=== PATIENT | male | born 1945 | race Caucasian/White ===

== ENCOUNTER 2016-05-11 18:25 | Emergency (ER) | payer OTHER ==
[~2016-05-11] VITALS: Ht 175.3 cm; Wt 82.6 kg
[~2016-05-11 18:25] MED LIST: GABA300C19 PO; LATA0.009 OPB; PRLSR20 PO
[2016-05-11 18:30] VITALS: Ht 175.3 cm; Wt 82.6 kg
[2016-05-11] MEDS ORDERED: ALUMINUM/MAGNESIUM SUSP 30 ML UDC PO STA (18:52)
[2016-05-11] MEDS ORDERED: LIDOCAINE HCL 2% VISC SOLN 20 ML UDC PO STA (18:52)
[2016-05-11 19:10] VITALS: O2SAT 95
[2016-05-11] MEDS ORDERED: AMLO-110 PO (19:14)
[2016-05-11 19:22] LABS: BASO % 0.5 %; BASO ABS # 0.03 K/uL (0-0.2); COMPLETE YES; EOS % 2.5 %; HEMATOCRIT 41.9 % (42-52); IG% 0.2 %; LYMPH ABS # 2.04 K/uL (1.2-3.4); MEAN CORPUSCULAR HEMOGLOBIN 31.9 pg (25-34); MEAN CORPUSCULAR HGB CONC 36.3 g/dl (32-36); MEAN PLATELET VOLUME 9.4 fL (7.4-10.4); MONO % 10.9 %; NEUT % 48.9 %; PLATELET COUNT 229 K/uL (130-400); RED BLOOD COUNT 4.76 M/uL (4.7-6.1); WHITE BLOOD COUNT 5.51 K/uL (4.8-10.8)
[2016-05-11 19:39] LABS: INR 1.1 (0.9-1.1); PROTHROMBIN TIME (PATIENT) 11.4 SECONDS (9.0-12.0)
[2016-05-11 20:01] LABS: ALKALINE PHOSPHATASE 82 U/L (45-117); ALT/SGPT 36 U/L (12-78); AST/SGOT 23 U/L (15-37); BLOOD UREA NITROGEN 15 mg/dl (7-18); BUN/CREATININE RATIO 18.3 (10-20); CALCIUM 8.9 mg/dl (8.5-10.1); CARBON DIOXIDE 22 mmol/L (21-32); CHLORIDE 104 mmol/L (98-107); CKMB/CK RATIO 0.6 (0-3.0); CREATININE 0.82 mg/dl (0.60-1.40); GLUCOSE 130 mg/dl (70-99); SODIUM 139 mmol/L (136-145)
--- NOTE | 2016-05-11 20:15 | DIAGNOSTIC IMAGING REPORT ---
CHEST ONE VIEW PORTABLE HISTORY: Tachycardia. Evaluate Fever/Sepsis COMPARISON: Chest 12/25/2013. FINDINGS: Extensive bilateral calcified pleural plaques are again noted. No pleural effusions. No pneumothorax. The heart is normal in size. No evidence for pulmonary edema. No new focal lung consolidations to suggest pneumonia. IMPRESSION: No significant change compared to the prior study. No acute process. Calcified bilateral pleural plaques are again noted. Electronically signed by: Bryce Gutiérrez M.D. 05/11/2016 8:14 PM Dictated Date/Time: 05/11/2016 8:12 PM
--- NOTE | 2016-05-11 20:42 | EMERGENCY ROOM VISIT NOTE ---
History Report prepared by Charo: Candelario Pro Under the Supervision of: Dr. Alexsander Mart D.O. First contact with patient: 18:42 Chief Complaint: CHEST PAIN Stated Complaint: CHEST PAIN, RACING HEART Nursing Triage Summary: PT C/O SUBSTERNAL CP AND "FEELS LIKE MY HEART IS RACING" STARTING 45 MINUTES AGO. HX ANGINA. PT TOOK 1 NITRO WITH "SOME" RELIEF. History of Present Illness The patient is a 70 year old male who presents to the Emergency Room with complaints of intermittent chest pain beginning about 1 hour ago. He notes the pain felt like a rapid heartbeat, and he took a nitro which helped. He then went downstairs and sat down when his symptoms began again. He notes he had pizza and beer for dinner, which he has not had in over 2 years, and his symptoms began about 30 minutes afterwards. The patient reports never having a heart attack before, but has angina and notes this pain feels like angina. He adds he has a hiatal hernia. The patient reports having multiple cardiac catheterizations, the last of which was in January of 2016 and showed 40% blockage. He adds that he has also had stress tests in the past. He notes his pain is not worsening with exertion, but he can normally feel discomfort upon exertion. The patient admits to having a fatty liver, and thus being on a diet regiment, which does not include pizza. Source of History: patient Onset: about 1 hour ago Position: chest Quality: other (chest pain; feels like rapid heartbeat) Timing: intermittent Modifying Factors (Relieving): other (nitro) Review of Systems See HPI for pertinent positives & negatives. A total of 10 systems reviewed and were otherwise negative. Past Medical & Surgical Medical Problems: (1) Coronary Atherosclerosis Of [place] Coronary Vessel (2) Diverticulosis Colon (W/O Ment Of Hemorrhage) (3) Esophageal Reflux (4) Hyperlipidemia Nec/Nos (5) Hypertension Nos (6) Palpitations Surgical Problems: (1) H/O cardiac catheterization Family History FH: heart disease Social History Smoking Status: Former Smoker Alcohol Use: occasionally Marital Status: Housing Status: lives with family Occupation Status: retired Current/Historical Medications Scheduled Amlodipine (Norvasc), 5 MG PO QAM Aspirin (Aspirin Ec), 81 MG PO QAM Latanoprost (Xalatan 0.005% Oph Griselda), 1 DROP OPB HS Meloxicam (Mobic), 15 MG PO QAM Metoprolol Tartrate (Lopressor) (Lopressor), 12.5 MG PO BID Multiple Vitamins W/ Minerals (Ocuvite), 1 TAB PO QAM Omeprazole (Prilosec), 20 MG PO AMPM Scheduled PRN Nitroglycerin (Nitrostat), 0.4 MG UT UD PRN for Chest Pain Allergies Coded Allergies: Codeine (Verified Allergy, Mild, NAUSEA, 12/25/13) Physical Exam Vital Signs Date Time Temp Pulse Resp B/P Pulse Ox O2 Delivery O2 Flow Rate FiO2 05/11/16 19:40 94 18 130/82 97 Room Air 05/11/16 19:10 95 Room Air 05/11/16 19:10 95 Room Air 05/11/16 19:09 92 Physical Exam CONSTITUTIONAL/VITAL SIGNS: Reviewed / noted above. GENERAL: Non-toxic in appearance. INTEGUMENTARY: Warm, dry, and [place]. HEAD: Normocephalic. EYES: without scleral icterus or trauma. ENT/OROPHARYNX: clear and moist. LYMPHADENOPATHY/NECK: Is supple without lymphadenopathy or meningismus. RESPIRATORY: Lungs clear and equal. CARDIOVASCULAR: Regular rate and rhythm. GI/ABDOMEN: Soft and nontender. No organomegaly or pulsatile mass. No rebound or guarding. Normal bowel sounds. EXTREMITIES: Warm and well perfused. BACK: No CVA tenderness. NEUROLOGICAL: Intact without focal deficits. PSYCHIATRIC: normal affect. MUSCULOSKELETAL: Normally developed with good muscle tone. Medical Decision & Procedures ER Provider Diagnostic Interpretation: X ray results and stated below per my interpretation and radiology interpretation. CHEST ONE VIEW PORTABLE FINDINGS: Extensive bilateral calcified pleural plaques are again noted. No pleural effusions. No pneumothorax. The heart is normal in size. No evidence for pulmonary edema. No new focal lung consolidations to suggest pneumonia. IMPRESSION: No significant change compared to the prior study. No acute process. Calcified bilateral pleural plaques are again noted. Electronically signed by: Bryce Gutiérrez M.D. 05/11/2016 8:14 PM Dictated Date/Time: 05/11/2016 8:12 PM Laboratory Results 05/11/16 19:05 Red Blood Count 4.76, Mean Corpuscular Volume 88.0, Mean Corpuscular Hemoglobin 31.9, Mean Corpuscular Hemoglobin Concent 36.3, Mean Platelet Volume 9.4, Neutrophils (%) (Auto) 48.9, Lymphocytes (%) (Auto) 37.0, Monocytes (%) (Auto) 10.9, Eosinophils (%) (Auto) 2.5, Basophils (%) (Auto) 0.5, Neutrophils # (Auto ) 2.69, Lymphocytes # (Auto) 2.04, Monocytes # (Auto) 0.60, Eosinophils # (Auto ) 0.14, Basophils # (Auto) 0.03 05/11/16 19:05 Test 05/11/16 19:05 White Blood Count 5.51 K/uL (4.8-10.8) Red Blood Count 4.76 M/uL (4.7-6.1) Hemoglobin 15.2 g/dL (14.0-18.0) Hematocrit 41.9 % (42-52) Mean Corpuscular Volume 88.0 fL (80-100) Mean Corpuscular Hemoglobin 31.9 pg (25-34) Mean Corpuscular Hemoglobin Concent 36.3 g/dl (32-36) Platelet Count 229 K/uL (130-400) Mean Platelet Volume 9.4 fL (7.4-10.4) Neutrophils (%) (Auto) 48.9 % Lymphocytes (%) (Auto) 37.0 % Monocytes (%) (Auto) 10.9 % Eosinophils (%) (Auto) 2.5 % Basophils (%) (Auto) 0.5 % Neutrophils # (Auto) 2.69 K/uL (1.4-6.5) Lymphocytes # (Auto) 2.04 K/uL (1.2-3.4) Monocytes # (Auto) 0.60 K/uL (0.11-0.59) Eosinophils # (Auto) 0.14 K/uL (0-0.5) Basophils # (Auto) 0.03 K/uL (0-0.2) RDW Standard Deviation 40.3 fL (36.4-46.3) RDW Coefficient of Variation 12.5 % (11.5-14.5) Immature Granulocyte % (Auto) 0.2 % Immature Granulocyte # (Auto) 0.01 K/uL (0.00-0.02) Prothrombin Time 11.4 SECONDS (9.0-12.0) Prothromb Time International Ratio 1.1 (0.9-1.1) Activated Partial Thromboplast Time 27.1 SECONDS (21.0-31.0) Partial Thromboplastin Ratio 1.0 Anion Gap 13.0 mmol/L (3-11) Est Creatinine Clear Calc Drug Dose 81.5 ml/min Estimated GFR () 102.4 Estimated GFR (Non- 88.3 BUN/Creatinine Ratio 18.3 (10-20) Calcium Level 8.9 mg/dl (8.5-10.1) Total Bilirubin 0.3 mg/dl (0.2-1) Direct Bilirubin mg/dl (0-0.2) Aspartate Amino Transf (AST/SGOT) 23 U/L (15-37) Alanine Aminotransferase (ALT/SGPT) 36 U/L (12-78) Alkaline Phosphatase 82 U/L (45-117) Total Creatine Kinase 93 U/L (39-308) Creatine Kinase MB 0.6 ng/ml (0.5-3.6) Creatine Kinase MB Ratio 0.6 (0-3.0) Troponin I < 0.015 ng/ml (0-0.045) Total Protein 7.9 gm/dl (6.4-8.2) Albumin 4.1 gm/dl (3.4-5.0) Lipase 167 U/L (73-393) Chemistry Specimen Hemolysis Laboratory results as stated above per my review. Medications Administered Medications (Trade) Dose Ordered Sig/Devi Route Start Time Stop Time Status Last Admin Dose Admin Al Hydroxide/Mg Hydroxide (Maalox Susp) 30 ml NOW STAT PO 05/11/16 18:52 05/11/16 18:54 DC 05/11/16 19:38 30 ML Lidocaine HCl (Viscous Lidocaine 2% Soln) 10 ml NOW STAT PO 05/11/16 18:52 05/11/16 18:54 DC 05/11/16 19:38 10 ML ECG Indication: chest pain Rate (beats per minute): 96 Rhythm: normal sinus Findings: no acute ischemic change, no ectopy ED Course 1846: Previous medical records were reviewed. The patient was evaluated in room B2. A complete history and physical examination was performed. 1851: Ordered Lidocaine HCl 10 ml PO, and Maalox Susp 30 ml PO. 2044: On reevaluation, the patient is hemodynamically stable. I discussed the results and findings with the patient. He verbalized agreement of the treatment plan. The patient was discharged home. Medical Decision the differential was considered includes acute myocardial infarction, acute coronary syndrome, myocarditis, pericarditis, pericardial effusions /tamponad, esophageal perforation, thoracic aortic dissection, pulmonary embolism, pneumonia, pneumothorax, pancreatitis, shingles, acute cholecystitis, perforated abdominal viscus. This is a 70-year-old male who presents to the ED with a chief complaint of left -sided chest pain and the patient states that his symptoms started about an hour ago. This occurred about 30 minutes after eating pizza and having some beer. He states that he normally does not eat or drink this. The patient states that it was a retrosternal chest pain. He states that he took a nitroglycerin and it seemed to help a little. The patient reports a history of angina. Cardiac catheterization 3-4 months ago revealed a 40% occlusion of the left circumflex. He did not report any other disease or require any stenting. The patient currently does not have any significant pain. He states there is very minimal pain in his chest in the same region. A twelve-lead EKG reveals normal sinus rhythm at a rate of 96 without acute injury or ectopy. His exam was normal. CBC and complete metabolic panel were normal. Troponin is negative. Chest x-ray did not show acute disease. The patient was treated with a GI cocktail. He was told the results. He is felt to be stable for discharge. Based on the above, I doubt symptoms are related to acute cardiopulmonary event. Impression Primary Impression: Retrosternal chest pain Scribe Attestation The scribe's documentation has been prepared under my direction and personally reviewed by me in its entirety. I confirm that the note above accurately reflects all work, treatment, procedures, and medical decision making performed by me. Departure Information Dispostion Home / Self-Care Referrals Harini Hanson M.D. (PCP) Patient Instructions Chest Pain - [facility], [facility] Additional Instructions Follow-up with your doctor for further care and evaluation in 1-2 days. Return to the emergency department for worsening or new symptoms or any concerns. You have been examined and treated today on an emergency basis only. This is not a substitute for, or an effort to provide, complete comprehensive medical care. It is impossible to recognize and treat all injuries or illnesses in a single emergency department visit. It is therefore important that you follow up closely with your doctor. Call as soon as possible for an appointment.
[2016-05-11 20:59] VITALS: BP 117/77; PULSE 85; O2SAT 95
[2016-05-11] MEDS ORDERED: MELO15TA4 PO (21:39)
[2016-05-11] MEDS ORDERED: MULT-188 PO (21:39)
[2016-05-11] MEDS ORDERED: ASPI81TA28 PO (21:39)
[2016-05-11] MEDS ORDERED: METO25TA56 PO (21:39)
[2016-05-11] MEDS ORDERED: NITR0.4S UT (21:39)
[2016-07-31] MEDS ORDERED: MULT-839 PO (08:09)
== END 2016-05-11 21:00 | disposition home or self-care (01) ==
LOC: C.EDB 18:35
DX: R07.9 Chest pain, unspecified (principal); I25.10 Atherosclerotic heart disease of native coronary artery without angina pectoris; K21.9 Gastro-esophageal reflux disease without esophagitis; E78.5 Hyperlipidemia, unspecified; I10 Essential (primary) hypertension; Z87.891 Personal history of nicotine dependence; Z79.82 Long term (current) use of aspirin; Z79.899 Other long term (current) drug therapy

== ENCOUNTER → 2016-08-09 | Day surgery (SDC) | payer OTHER ==
[2016-07-31 08:14] VITALS: Ht 175.3 cm; Wt 77.3 kg
[~2016-08-09] VITALS: Ht 175.3 cm; Wt 77.3 kg
[~2016-08-09] MED LIST changes: +AMLO-110 PO; +ASPI81TA28 PO; +ATROPINE SULFATE 0.1 MG/ML 5ML SYR IV PRN; +EpHEDrine SULFATE INJ 50 MG/ML AMP IV PRN; -GABA300C19 PO; +LIDOCAINE HCL 2% 2 ML VIAL (20MG/ML) ONE; +MELO15TA4 PO; +METO25TA56 PO; +MULT-839 PO; +NITR0.4S UT; +PROPOFOL IV EMULSION 10 MG/ML 20 ML VIAL IV ONE; +SODIUM CHLORIDE 0.9% 500ML 500 ML IV ONE
--- NOTE | 2016-08-09 12:55 | Endo History and Physical ---
History & Physical Date of Service: Aug 09, 2016. Chief Complaint: Referring Physician: History of Present Illness hx colon polyps Past Surgical History Hx Cardiac Surgery: Yes (HEART CATH X3, NO STENTS) Hx Internal Defibrillator: No Hx Pacemaker: No Hx Abdominal Surgery: Yes (HERNIA REPAIR X2) Hx of Implantable Prosthesis: No Hx Post-Op Nausea and Vomiting: Yes (R/T CODEINE ALLERGY) Hx Cancer Surgery: No Hx Thoracic Surgery: No Hx Orthopedic: No Hx Urinary Tract Surgery: No Family History None Social History Smoking Status: Former Smoker Hx Substance Use: No Hx Alcohol Use: Yes (OCCASIONAL) Allergies Coded Allergies: Codeine (Verified Allergy, Mild, NAUSEA, 07/31/16) Current Medications Reported Home Medications Medications Dose Route/Sig Max Daily Dose Days Date Category Vision Formula/Lutein (Multiple Vitamins W/ Minerals) 1 Tab Tab 1 Tab PO QAM 07/31/16 Reported Norvasc (Amlodipine Besylate) 5 Mg Tab 5 Mg PO QAM 05/11/16 Reported Mobic (Meloxicam) 15 Mg Tab 15 Mg PO QAM 12/25/13 Reported Nitrostat (Nitroglycerin) 0.4 Mg Sub 0.4 Mg UT UD PRN 12/25/13 Reported Lopressor (Metoprolol Tartrate) 25 Mg Tab 12.5 Mg PO BID 12/25/13 Reported Aspirin Ec (Aspirin) 81 Mg Tab 2 Tabs PO QPM 12/25/13 Reported Prilosec (Omeprazole) 20 Mg Capcr 20 Mg PO BID 05/25/13 Reported Xalatan 0.005% Oph Griselda (Latanoprost) 0.005 % Griselda 1 Drop OPB HS 12/18/11 Reported Vital Signs Weight (Kilograms): 77.27 Height (Feet): 5 Height (Inches): 9 Physical Exam AAOx3 Nl s1s2 Lungs CTA Abd softy NT/ND + BS - CCE Assessment and Plan colonoscopy today
[2016-08-09 13:05] VITALS: TEMP 36.5
--- NOTE | 2016-08-09 13:46 | Discharge Instructions ---
Endoscopy Patient Instructions Date / Procedure(s) Performed Aug 09, 2016. Colonoscopy Allergy Information Coded Allergies: Codeine (Verified Allergy, Mild, NAUSEA, 07/31/16) Discharge Date / Findings Aug 09, 2016. colon polpys- removed Medication Instructions Stopped Medication(s): ASA and meloxicam Restart Stopped Medication(s): Reported Home Medications Medications Dose Route/Sig Max Daily Dose Days Date Category Vision Formula/Lutein (Multiple Vitamins W/ Minerals) 1 Tab Tab 1 Tab PO QAM 07/31/16 Reported Norvasc (Amlodipine Besylate) 5 Mg Tab 5 Mg PO QAM 05/11/16 Reported Mobic (Meloxicam) 15 Mg Tab 15 Mg PO QAM 12/25/13 Reported Nitrostat (Nitroglycerin) 0.4 Mg Sub 0.4 Mg UT UD PRN 12/25/13 Reported Lopressor (Metoprolol Tartrate) 25 Mg Tab 12.5 Mg PO BID 12/25/13 Reported Aspirin Ec (Aspirin) 81 Mg Tab 2 Tabs PO QPM 12/25/13 Reported Prilosec (Omeprazole) 20 Mg Capcr 20 Mg PO BID 05/25/13 Reported Xalatan 0.005% Oph Griselda (Latanoprost) 0.005 % Griselda 1 Drop OPB HS 12/18/11 Reported Reported Home Medications Medications Dose Route/Sig Max Daily Dose Days Date Category Vision Formula/Lutein (Multiple Vitamins W/ Minerals) 1 Tab Tab 1 Tab PO QAM 07/31/16 Reported Norvasc (Amlodipine Besylate) 5 Mg Tab 5 Mg PO QAM 05/11/16 Reported Mobic (Meloxicam) 15 Mg Tab 15 Mg PO QAM 12/25/13 Reported Nitrostat (Nitroglycerin) 0.4 Mg Sub 0.4 Mg UT UD PRN 12/25/13 Reported Lopressor (Metoprolol Tartrate) 25 Mg Tab 12.5 Mg PO BID 12/25/13 Reported Aspirin Ec (Aspirin) 81 Mg Tab 2 Tabs PO QPM 12/25/13 Reported Prilosec (Omeprazole) 20 Mg Capcr 20 Mg PO BID 05/25/13 Reported Xalatan 0.005% Oph Griselda (Latanoprost) 0.005 % Griselda 1 Drop OPB HS 12/18/11 Reported Provider Instructions Activity Restrictions - No exercising or heavy lifting for 24 hours. - Do not drink alcohol the day of the procedure. - Do not drive a car or operate machinery until the day after the procedure. - Do not make any important decisions or sign important papers in 24 hours after the procedure. Following Day: - Return to full activity which may include returning to work/school. Diet Start your diet with liquids and light foods (jello, soup, juice, toast). Then eat your usual diet if not nauseated. Treatment For Common After Affects For mild abdominal pain, bloating, or excessive gas: - Rest - Eat lightly - Lie on right side Follow-Up Information Follow-up with as scheduled Anesthesia Information What You Should Know You have had a procedure that required some medicine to reduce anxiety and discomfort. This treatment is called moderate sedation. After receiving the treatment, you may be sleepy, but you will be able to breathe on your own. The effects of the treatment may last for several hours. Follow these instructions along with Activity/Diet recommendations noted above: * Do NOT do anything where dizziness or clumsiness would be dangerous. * Rest quietly at home today, then you can be up and about tomorrow. * Have a responsible person stay with you the rest of today. * You may have had an I.V. today. If so, you may take the dressing off later today. Recommendations Call your doctor if: * Trouble breathing * Continuous vomiting for more than 24 hours * Temperature above 101 degrees * Severe abdominal pain or bloating * Pain not relieved by pain medicine ordered * There is increased drainage or redness from any incision * A large amount of rectal bleeding greater than 2-3 tablespoons. (If you had a polyp/s removed or have hemorrhoids, a small amount of blood - from the rectum is to be expected.) * You have any unanswered questions or concerns. IN THE EVENT OF A SERIOUS EMERGENCY, GO TO THE NEAREST EMERGENCY ROOM Your discharge instructions were prepared by provider Cy Jessica. Patient Instructions Signature Page Alessandro Amparo Patient (or Guardian) Signature/Date: I have read and understand the instructions given to me by my caregivers. Caregiver/RN/Doctor Signature/Date: The above-named patient and/or guardian has received patient instructions on this date. + Original Patient Signature Page (only) stays with chart. Please make copy for patient.
--- NOTE | 2016-08-09 13:53 | GI REPORT ---
Procedure Date: 08/09/2016 1:21 PM Procedure: Colonoscopy Indications: High risk colon cancer surveillance: Personal history of colonic polyps Medicines: Propofol per Anesthesia Complications: No immediate complications. Estimated blood loss: Minimal. Estimated Blood Loss: Estimated blood loss was minimal. Procedure: Pre-Anesthesia Assessment: - Prior to the procedure, a History and Physical was performed, and patient medications and allergies were reviewed. The patient's tolerance of previous anesthesia was also reviewed. The risks and benefits of the procedure and the sedation options and risks were discussed with the patient. All questions were answered, and informed consent was obtained. Prior Anticoagulants: The patient has taken no previous anticoagulant or antiplatelet agents. ASA Grade Assessment: III - A patient with severe systemic disease. After reviewing the risks and benefits, the patient was deemed in satisfactory condition to undergo the procedure. After I obtained informed consent, the scope was passed under direct vision. Throughout the procedure, the patient's blood pressure, pulse, and oxygen saturations were monitored continuously. The scope was introduced through the anus and advanced to the terminal ileum, with identification of the appendiceal orifice and IC valve. The colonoscopy was performed without difficulty. The patient tolerated the procedure well. The quality of the bowel preparation was good. Findings: The perianal and digital rectal examinations were normal. Pertinent negatives include normal sphincter tone, no palpable rectal lesions and no anal lesion or abnormality was detected. Two sessile polyps were found in the transverse colon. The polyps were 2 to 5 mm in size. These polyps were removed with a cold biopsy forceps. Resection and retrieval were complete. Estimated blood loss was minimal. Verification of patient identification for the specimen was done by the physician and turfgrass technician using the patient's name and medical record number. Multiple small-mouthed diverticula were found in the entire colon. Non-bleeding internal hemorrhoids were found during retroflexion. The hemorrhoids were mild. The exam was otherwise without abnormality. Impression: - Two 2 to 5 mm polyps in the transverse colon, removed with a cold biopsy forceps. Resected and retrieved. - Diverticulosis in the entire examined colon. - Non-bleeding internal hemorrhoids. - The examination was otherwise normal. Recommendation: - Patient has a contact number available for emergencies. The signs and symptoms of potential delayed complications were discussed with the patient. Return to normal activities tomorrow. Written discharge instructions were provided to the patient. - Resume regular diet. - Continue present medications. - Await pathology results. - Repeat colonoscopy for surveillance based on pathology results. - Return to referring physician as previously scheduled. MD Cy Christine MD 08/09/2016 1:52:32 PM This report has been signed electronically. Note Initiated On: 08/09/2016 1:21 PM I attest to the content of the Intraoperative Record and orders documented therein, exceptions below
--- NOTE | 2016-08-09 14:07 | Anesthesiology Progress Note ---
Anesthesia Post Op Note Date & Time Aug 09, 2016 at 14:06 Vital Signs Pain Intensity: 0 Vital Signs Past 12 Hours Date Time Temp Pulse Resp B/P Pulse Ox O2 Delivery O2 Flow Rate FiO2 08/09/16 13:50 84 18 117/62 95 Room Air 08/09/16 13:05 36.5 92 18 161/87 96 Room Air Notes Mental Status: alert / awake / arousable, participated in evaluation Pt Amnestic to Procedure: Yes Nausea / Vomiting: adequately controlled Pain: adequately controlled Airway Patency, RR, SpO2: stable & adequate BP & HR: stable & adequate Hydration State: stable & adequate Anesthetic Complications: no major complications apparent
[2016-08-09 14:22] VITALS: BP 112/61; PULSE 81; O2SAT 95
== END | disposition home or self-care (01) ==
LOC: C.GI 12:14
PROVIDERS: ATTEND Internal Medicine Gastroenterology
DX: Z12.11 Encounter for screening for malignant neoplasm of colon (principal); D12.3 Benign neoplasm of transverse colon; K57.90 Diverticulosis of intestine, part unspecified, without perforation or abscess without bleeding; Z86.010 Personal history of colon polyps; Z87.891 Personal history of nicotine dependence

== ENCOUNTER 2017-03-25 07:43 | Observation (INO) | payer OTHER ==
[~2017-03-25] VITALS: Ht 175.3 cm; Wt 81.6 kg
[~2017-03-25 07:43] MED LIST changes: -ATROPINE SULFATE 0.1 MG/ML 5ML SYR IV PRN; -EpHEDrine SULFATE INJ 50 MG/ML AMP IV PRN; -LIDOCAINE HCL 2% 2 ML VIAL (20MG/ML) ONE; -PROPOFOL IV EMULSION 10 MG/ML 20 ML VIAL IV ONE; -SODIUM CHLORIDE 0.9% 500ML 500 ML IV ONE
[2017-03-25] MEDS ORDERED: METOPROLOL TARTRATE 1 MG/ML VIAL IV STA ×2 (07:58→09:01)
[2017-03-25 08:13] LABS: BASO % 0.9 %; BASO ABS # 0.05 K/uL (0-0.2); COMPLETE YES; EOS % 2.1 %; HEMATOCRIT 46.7 % (42-52); IG% 0.2 %; LYMPH % 29.8 %; LYMPH ABS # 1.72 K/uL (1.2-3.4); MEAN CELL VOLUME 89.5 fL (80-100); MEAN CORPUSCULAR HEMOGLOBIN 32.2 pg (25-34); MEAN PLATELET VOLUME 9.5 fL (7.4-10.4); MONO % 11.2 %; NEUT % 55.8 %; PLATELET COUNT 239 K/uL (130-400); RED BLOOD COUNT 5.22 M/uL (4.7-6.1); WHITE BLOOD COUNT 5.78 K/uL (4.8-10.8)
--- NOTE | 2017-03-25 08:27 | DIAGNOSTIC IMAGING REPORT ---
CHEST ONE VIEW PORTABLE CLINICAL HISTORY: Fever, sepsis COMPARISON STUDY: 05/11/2016 FINDINGS: The cardiac and mediastinal contours remain stable. There are extensive bilateral calcified pleural plaques. There is no acute parenchymal consolidation. There is no failure. There are no pleural effusions.[ IMPRESSION: No significant change. No acute findings. Extensive bilateral calcified pleural plaques are again evident Electronically signed by: Mikey Shaikh M.D. 03/25/2017 8:26 AM Dictated Date/Time: 03/25/2017 8:25 AM
[2017-03-25 08:32] LABS: ALT/SGPT 98 U/L (12-78); AST/SGOT 43 U/L (15-37); BLOOD UREA NITROGEN 19 mg/dl (7-18); BUN/CREATININE RATIO 18.1 (10-20); CALCIUM 9.2 mg/dl (8.5-10.1); CARBON DIOXIDE 24 mmol/L (21-32); CHLORIDE 100 mmol/L (98-107); CREATININE 1.02 mg/dl (0.60-1.40); GLUCOSE 196 mg/dl (70-99); POTASSIUM 4.3 mmol/L (3.5-5.1); SODIUM 133 mmol/L (136-145)
[2017-03-25 08:42] LABS: ALKALINE PHOSPHATASE 72 U/L (45-117)
[2017-03-25] MEDS ORDERED: MULT-839 PO (09:04)
[2017-03-25] MEDS ORDERED: DILTIAZEM BOLUS / DRIP IV STA (09:29)
[2017-03-25] MEDS ORDERED: DILTIAZEM HCL INJ 125 MG in DEXTROSE 5% 100ML IV PRN (09:45)
[2017-03-25] MEDS ORDERED: DILTIAZEM HCL 5 MG/ML 5 ML VIAL BOLUS/OMNI IV SCH (09:45)
--- NOTE | 2017-03-25 10:03 | History and Physical ---
History & Physical Date & Time of Service: Mar 25, 2017 at 09:46 Chief Complaint: Chest Pain Primary Care Physician: Harini Hanson M.D. History of Present Illness 71yo male with nonobstructive CAD who presents with discrete episodes of palpitations starting . Had an episode that lasted about 30 minutes on afternoon. The palpitations came on acutely. This was associated with mild chest dull "ache". He took a nitroglycerin. About 20 minutes later the palpitations resolved. On Saturday he had another similar episode of palpitations. He took nitro SL once again for the chest tightness/palpitations with resolution of symptoms. On Saturday he had another episode of palpitations. Nitro SL was once again taken by him with resolution of the palpitations about 20-30 minutes later. Yesterday on Saturday he felt tired. Had good appetite at that time. No fever or chills. Went to bed in normal fashion last evening. At 0400 the palpitations woke him from his sleep. He had associated "dull ache" in the chest. He took one SL nitro with improvement in symptoms. At 0530 he had another episode of palpitations. This time he did NOT take nitro and at that time he decided to come to [facility]. He has had episodes of palpitations over the years but they have never been captured (probably 10 years or so). Past Medical/Surgical History PMH: 1. CAD - follows with Dr. Acevedo, [facility] * has 40% lesion in one artery * last heart catheterization was 2015 * no h/o acute NV 2. HTN ? 3. hyperlipidemia ? 4. diverticulosis 5. asbestosis 6. GERD PSH: 1. 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 ) Immunizations History of Influenza Vaccine: No History of Tetanus Vaccine?: No History of Pneumococcal: No History of Hepatitis B Vaccine: No Multi-Drug Resistant Organisms History of MDRO: No Allergies Coded Allergies: Codeine (Verified Allergy, Mild, NAUSEA, 03/25/17) Home Medications Scheduled Amlodipine (Norvasc), 5 MG PO QAM Aspirin (Aspirin Ec), 2 TABS PO QPM Latanoprost (Xalatan 0.005% Oph Griselda), 1 DROP OPB HS Meloxicam (Mobic), 15 MG PO QAM Metoprolol Tartrate (Lopressor) (Lopressor), 12.5 MG PO BID Multiple Vitamins W/ Minerals (Vision Formula/Lutein), 1 TAB PO QAM Omeprazole (Prilosec), 20 MG PO BID Scheduled PRN Nitroglycerin (Nitrostat), 0.4 MG UT UD PRN for Chest Pain Review of Systems Constitutional: + fatigue, No fever, No chills, No weight loss Eyes: + worsening of vision (chronic ) ENT: No nasal symptoms, No sore throat, No dental problems, No trouble swallowing Respiratory: + shortness of breath (with the palpitations episodes), No cough, No wheezing, No dyspnea on exertion Cardiovascular: + chest pain, + palpitations, No orthopnea, No edema Abdomen: No pain, No nausea, No vomiting, No diarrhea, No constipation, No GI bleeding Musculoskeletal: + joint pain (knees) Genitourinary - Male: + urinary frequency Neurologic: No numbness/tingling Psychiatric: No depression symptoms, No anxiety Endocrine: + fatigue, + excessive urination, No excessive thirst Hematologic / Lymphatic: No abnormal bleeding/bruising Integumentary: No rash Physical Exam Vital Signs Date Time Temp Pulse Resp B/P (MAP) Pulse Ox O2 Delivery O2 Flow Rate FiO2 03/25/17 09:24 150 137/96 03/25/17 09:01 154 120/89 03/25/17 08:23 150 18 124/97 03/25/17 08:21 148 03/25/17 08:13 145 03/25/17 08:09 135 03/25/17 08:05 145 156/107 03/25/17 07:57 147 03/25/17 07:45 36.4 150 17 154/96 96 Room Air General Appearance: WD/WN, no apparent distress Head: normocephalic, atraumatic Eyes: PERRL, sclerae normal ENT: normal ENT inspection, hearing grossly normal, TMs normal, pharynx normal Neck: supple, no adenopathy, thyroid normal, no JVD Respiratory/Chest: chest non-tender, lungs clear, normal breath sounds, no respiratory distress, no accessory muscle use Cardiovascular: no gallop, no murmur, normal peripheral pulses, + tachycardia Abdomen/GI: normal bowel sounds, non tender, soft, no organomegaly, no pulsatile mass Back: normal inspection Extremities/Musculoskelatal: no pedal edema Neurologic/Psych: no motor/sensory deficits, alert, normal mood/affect, normal reflexes, oriented x 3 Skin: no rash Lymphatic: no adenopathy (CERVICAL) Diagnostics Laboratory Results Results Past 24 Hours Test 03/25/17 08:00 03/25/17 09:37 Range/Units White Blood Count 5.78 4.8-10.8 K/uL Red Blood Count 5.22 4.7-6.1 M/uL Hemoglobin 16.8 14.0-18.0 g/dL Hematocrit 46.7 42-52 % Mean Corpuscular Volume 89.5 80-100 fL Mean Corpuscular Hemoglobin 32.2 25-34 pg Mean Corpuscular Hemoglobin Concent 36.0 32-36 g/dl Platelet Count 239 130-400 K/uL Mean Platelet Volume 9.5 7.4-10.4 fL Neutrophils (%) (Auto) 55.8 % Lymphocytes (%) (Auto) 29.8 % Monocytes (%) (Auto) 11.2 % Eosinophils (%) (Auto) 2.1 % Basophils (%) (Auto) 0.9 % Neutrophils # (Auto) 3.23 1.4-6.5 K/uL Lymphocytes # (Auto) 1.72 1.2-3.4 K/uL Monocytes # (Auto) 0.65 0.11-0.59 K/uL Eosinophils # (Auto) 0.12 0-0.5 K/uL Basophils # (Auto) 0.05 0-0.2 K/uL RDW Standard Deviation 40.6 36.4-46.3 fL RDW Coefficient of Variation 12.5 11.5-14.5 % Immature Granulocyte % (Auto) 0.2 % Immature Granulocyte # (Auto) 0.01 0.00-0.02 K/uL Prothrombin Time 11.0 9.0-12.0 SECONDS Prothromb Time International Ratio 1.0 0.9-1.1 Activated Partial Thromboplast Time 27.1 21.0-31.0 SECONDS Partial Thromboplastin Ratio 1.0 Sodium Level 133 136-145 mmol/L Potassium Level 4.3 3.5-5.1 mmol/L Chloride Level 100 98-107 mmol/L Carbon Dioxide Level 24 21-32 mmol/L Anion Gap 9.0 3-11 mmol/L Blood Urea Nitrogen 19 7-18 mg/dl Creatinine 1.02 0.60-1.40 mg/dl Est Creatinine Clear Calc Drug Dose 69.8 ml/min Estimated GFR () 84.1 Estimated GFR (Non- 72.6 BUN/Creatinine Ratio 18.1 10-20 Random Glucose 196 70-99 mg/dl Calcium Level 9.2 8.5-10.1 mg/dl Total Bilirubin 0.8 0.2-1 mg/dl Direct Bilirubin 0.2 0-0.2 mg/dl Aspartate Amino Transf (AST/SGOT) 43 15-37 U/L Alanine Aminotransferase (ALT/SGPT) 98 12-78 U/L Alkaline Phosphatase 72 45-117 U/L Total Creatine Kinase 76 39-308 U/L Creatine Kinase MB < 0.5 0.5-3.6 ng/ml Creatine Kinase MB Ratio 0-3.0 Troponin I < 0.015 0-0.045 ng/ml Total Protein 8.7 6.4-8.2 gm/dl Albumin 4.6 3.4-5.0 gm/dl Thyroid Stimulating Hormone (TSH) 1.710 0.300-4.500 uIu/ml Diagnostic Radiology CHEST X-RAY: 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 Found to be in rapid a flutter in the ER at presentation today. Had multiple doses of IV lopressor without any effect on his heart rate. At the conclusion of my admission assessment he spontaneously converted back to NSR. He has no evidence of complicating CHF or ACS. 1. a flutter - patient reports having palpitation episodes for many years. These were never captured in the past with holter or event monitoring. Fortunately he converted to NSR from rapid a flutter spontaneously in the ER. His CHADS-VASC score is at least a 3, possibly a 4, if his hemoglobin a1c shows evidence of full-blown T2DM (glucose on labs this AM was nearly 200 and his last hemoglobin a1c was c/w pre-T2DM). Anticoagulation is recommended; I spoke with him about stroke risk and reducing stroke risk with anticoagulation. Will initiate eliquis 5mg BID. I have asked Dr. Horner from cardiology to consult for additional recommendations for rhythm control. Echo pending. Magnesium level is pending as well. Potassium and TSH were normal. Continue metoprolol as previous. 2. chest discomfort - this could all be simply from the rapid a flutter. He has known CAD but it has been nonobstructive and only in 1 vessel according to his recollection. He has never had an NV or stent. He follows with Dr. Loco in [place]. Despite the frequency of his chest symptoms since his troponin has remained 0. Will obtain 2 more sets of troponins to be complete. Following conversion to NSR his ST segments were normal. 3. HTN - he questions this diagnosis but he is on both norvasc & amlodipine. I suspect he does have essential HTN. 4. hyperlipidemia - he took a statin in the past but this was stopped. I would consider restarting in light of his nonobstructive CAD. 5. elevated AST, ALT, total protein - these need repeating. If still abnormal then outpatient ultrasound of liver/gall bladder. 6. hyperglycemia - hemoglobin a1c is pending to r/o T2DM. BSG's in meantime ac /hs. T2DM diet. 7. DVT proph - eliquis. updated at bedside Level of Care Telemetry Advanced Directives Existing Advance Directive: Yes Existing Living Will: Yes Resuscitation Status FULL RESUSCITATION VTE Prophylaxis VTE Risk Assessment Done? Y/N: Yes Risk Level: Low Given or contraindicated: Other Anticoagulation Social Service Consult None Apply Note patient to be placed on observation status; total time about 60 minutes Additional Copies To Federico Loco; Harini Hanson M.D.
[2017-03-25] MEDS ORDERED: MAGNESIUM HYDROXIDE SUSP 30 ML UDC PO PRN (10:30)
[2017-03-25] MEDS ORDERED: ACETAMINOPHEN 325 MG TAB PO PRN (10:30)
[2017-03-25] MEDS ORDERED: ALUMINUM/MAGNESIUM/SIMETH (MAALOX MAX) 30 ML UDC PO PRN (10:30)
[2017-03-25] MEDS ORDERED: ONDANSETRON INJ 2 MG/ML 2 ML VIAL IV PRN (10:30)
[2017-03-25] MEDS ORDERED: SODIUM CHLORIDE 0.9% 1000ML 1,000 ML IV SCH (10:30)
[2017-03-25] MEDS ORDERED: NITROGLYCERIN 0.4 MG SL PER TAB CHARGE SL PRN (10:30)
[2017-03-25 11:23] VITALS: BP 111/78; PULSE 85; TEMP 36.6; O2SAT 96; Ht 175.3 cm; Wt 81.6 kg
[2017-03-25] MEDS ORDERED: IV FLUIDS COMPLETED PRN (11:45)
[2017-03-25] MEDS: APIXABAN 2.5 MG TAB PO SCH ×2 (12:04→21:02)
[2017-03-25 12:15] LABS: ESTIMATED AVERAGE GLUCOSE 117 mg/dl; HA1C FLAG Normal (Normal)
[2017-03-25] MEDS ORDERED: PERFLUTREN LIPID MICROSPHERE (DEFINITY) IV ONE (13:29)
--- NOTE | 2017-03-25 13:31 | EMERGENCY ROOM VISIT NOTE ---
History Report prepared by Charo: Danelle Rollins Under the Supervision of: Dr. Alexsander Mart D.O. First contact with patient: 07:51 Chief Complaint: TACHYCARDIA Stated Complaint: CHEST PAIN History of Present Illness The patient is a 71 year old male who presents to the Emergency Room with complaints of intermittent tachycardia that began five days ago. He currently rates his discomfort as a 5/10 in severity. The patient states that he has a history of angina, noting that he has nitroglycerin at home. He states that over the past five days he has been experiencing intermittent tachycardia, and states that he has taken nitroglycerin for his symptoms which has alleviated them. The patient states that this morning he had two bouts of tachycardia within one hour. He additionally reports chest pain with his symptoms today. The patient states that he has been fatigued over the past several days. He denies any shortness of breath. The patient denies any history of atrial fibrillation and atrial flutter, just noting PVCs. He denies any recent illness. Source of History: patient Onset: five days ago Position: other (global) Symptom Intensity: 5/10 Quality: other (tachycardia) Timing: intermittent Associated Symptoms: + chest pain, + fatigue, No SOB Review of Systems See HPI for pertinent positives & negatives. A total of 10 systems reviewed and were otherwise negative. Past Medical & Surgical Medical Problems: (1) Atrial flutter (2) Coronary Atherosclerosis Of [place] Coronary Vessel (3) Diverticulosis Colon (W/O Ment Of Hemorrhage) (4) Esophageal Reflux (5) Hyperlipidemia Nec/Nos (6) Hypertension Nos (7) Palpitations Surgical Problems: (1) H/O cardiac catheterization Family History FH: heart disease Social History Smoking Status: Former Smoker Alcohol Use: occasionally Marital Status: Housing Status: lives with family Occupation Status: retired Current/Historical Medications Scheduled Amlodipine (Norvasc), 5 MG PO QAM Aspirin (Aspirin Ec), 2 TABS PO QPM Latanoprost (Xalatan 0.005% Oph Griselda), 1 DROP OPB HS Meloxicam (Mobic), 15 MG PO QAM Metoprolol Tartrate (Lopressor) (Lopressor), 12.5 MG PO BID Multiple Vitamins W/ Minerals (Vision Formula/Lutein), 1 TAB PO QAM Omeprazole (Prilosec), 20 MG PO BID Scheduled PRN Nitroglycerin (Nitrostat), 0.4 MG UT UD PRN for Chest Pain Allergies Coded Allergies: Codeine (Verified Allergy, Mild, NAUSEA, 03/25/17) Physical Exam Vital Signs Date Time Temp Pulse Resp B/P (MAP) Pulse Ox O2 Delivery O2 Flow Rate FiO2 03/25/17 10:23 88 18 129/88 03/25/17 09:24 150 137/96 03/25/17 09:01 154 120/89 03/25/17 08:23 150 18 124/97 03/25/17 08:21 148 03/25/17 08:13 145 03/25/17 08:09 135 03/25/17 08:05 145 156/107 03/25/17 07:57 147 03/25/17 07:45 36.4 150 17 154/96 96 Room Air Physical Exam CONSTITUTIONAL/VITAL SIGNS: Reviewed / noted above. GENERAL: Non-toxic in appearance. INTEGUMENTARY: Warm, dry, and [place]. HEAD: Normocephalic. EYES: without scleral icterus or trauma. ENT/OROPHARYNX: clear and moist. LYMPHADENOPATHY/NECK: Is supple without lymphadenopathy or meningismus. RESPIRATORY: Lungs clear and equal. CARDIOVASCULAR: Tachycardic rate and regular rhythm. GI/ABDOMEN: Soft and nontender. No organomegaly or pulsatile mass. No rebound or guarding. Normal bowel sounds. EXTREMITIES: Warm and well perfused. BACK: No CVA tenderness. NEUROLOGICAL: Intact without focal deficits. PSYCHIATRIC: normal affect. MUSCULOSKELETAL: Normally developed with good muscle tone. Medical Decision & Procedures ER Provider Diagnostic Interpretation: X ray results and stated below per my interpretation and radiology interpretation. CHEST ONE VIEW PORTABLE CLINICAL HISTORY: Fever, sepsis COMPARISON STUDY: 05/11/2016 FINDINGS: The cardiac and mediastinal contours remain stable. There are extensive bilateral calcified pleural plaques. There is no acute parenchymal consolidation. There is no failure. There are no pleural effusions.[ IMPRESSION: No significant change. No acute findings. Extensive bilateral calcified pleural plaques are again evident Electronically signed by: Mikey Shaikh M.D. 03/25/2017 8:26 AM Dictated Date/Time: 03/25/2017 8:25 AM Laboratory Results 03/25/17 08:00 Red Blood Count 5.22, Mean Corpuscular Volume 89.5, Mean Corpuscular Hemoglobin 32.2, Mean Corpuscular Hemoglobin Concent 36.0, Mean Platelet Volume 9.5, Neutrophils (%) (Auto) 55.8, Lymphocytes (%) (Auto) 29.8, Monocytes (%) (Auto) 11.2, Eosinophils (%) (Auto) 2.1, Basophils (%) (Auto) 0.9, Neutrophils # (Auto ) 3.23, Lymphocytes # (Auto) 1.72, Monocytes # (Auto) 0.65, Eosinophils # (Auto ) 0.12, Basophils # (Auto) 0.05 03/25/17 08:00 Test 03/25/17 08:00 White Blood Count 5.78 K/uL (4.8-10.8) Red Blood Count 5.22 M/uL (4.7-6.1) Hemoglobin 16.8 g/dL (14.0-18.0) Hematocrit 46.7 % (42-52) Mean Corpuscular Volume 89.5 fL (80-100) Mean Corpuscular Hemoglobin 32.2 pg (25-34) Mean Corpuscular Hemoglobin Concent 36.0 g/dl (32-36) Platelet Count 239 K/uL (130-400) Mean Platelet Volume 9.5 fL (7.4-10.4) Neutrophils (%) (Auto) 55.8 % Lymphocytes (%) (Auto) 29.8 % Monocytes (%) (Auto) 11.2 % Eosinophils (%) (Auto) 2.1 % Basophils (%) (Auto) 0.9 % Neutrophils # (Auto) 3.23 K/uL (1.4-6.5) Lymphocytes # (Auto) 1.72 K/uL (1.2-3.4) Monocytes # (Auto) 0.65 K/uL (0.11-0.59) Eosinophils # (Auto) 0.12 K/uL (0-0.5) Basophils # (Auto) 0.05 K/uL (0-0.2) RDW Standard Deviation 40.6 fL (36.4-46.3) RDW Coefficient of Variation 12.5 % (11.5-14.5) Immature Granulocyte % (Auto) 0.2 % Immature Granulocyte # (Auto) 0.01 K/uL (0.00-0.02) Prothrombin Time 11.0 SECONDS (9.0-12.0) Prothromb Time International Ratio 1.0 (0.9-1.1) Activated Partial Thromboplast Time 27.1 SECONDS (21.0-31.0) Partial Thromboplastin Ratio 1.0 Anion Gap 9.0 mmol/L (3-11) Est Creatinine Clear Calc Drug Dose 69.8 ml/min Estimated GFR () 84.1 Estimated GFR (Non- 72.6 BUN/Creatinine Ratio 18.1 (10-20) Estimated Average Glucose 117 mg/dl Hemoglobin A1c 5.7 % (4.5-5.6) Calcium Level 9.2 mg/dl (8.5-10.1) Magnesium Level 2.4 mg/dl (1.8-2.4) Total Bilirubin 0.8 mg/dl (0.2-1) Direct Bilirubin 0.2 mg/dl (0-0.2) Aspartate Amino Transf (AST/SGOT) 43 U/L (15-37) Alanine Aminotransferase (ALT/SGPT) 98 U/L (12-78) Alkaline Phosphatase 72 U/L (45-117) Total Creatine Kinase 76 U/L (39-308) Creatine Kinase MB < 0.5 ng/ml (0.5-3.6) Creatine Kinase MB Ratio (0-3.0) Troponin I < 0.015 ng/ml (0-0.045) Total Protein 8.7 gm/dl (6.4-8.2) Albumin 4.6 gm/dl (3.4-5.0) Thyroid Stimulating Hormone (TSH) 1.710 uIu/ml (0.300-4.500) Laboratory results as stated above per my review. Medications Administered Medications (Trade) Dose Ordered Sig/Devi Route Start Time Stop Time Status Last Admin Dose Admin Metoprolol Tartrate (Lopressor Iv) 5 mg NOW STAT IV 03/25/17 07:58 03/25/17 08:00 DC 03/25/17 08:05 5 MG Metoprolol Tartrate (Lopressor Iv) 15 mg NOW STAT IV 03/25/17 09:01 03/25/17 09:02 DC 03/25/17 09:24 10 MG ECG Indication: chest pain, tachycardia Rate (beats per minute): 146 Rhythm: atrial flutter Findings: no acute ischemic change, no ectopy, other (2 to 1 conduciton rate) ED Course 0753: Previous medical records were reviewed. The patient was evaluated in room B9. A complete history and physical examination was performed. 0758: Ordered Lopressor IV 5 mg IV. 900: Ordered Lopressor IV 15 mg IV. 30: I reevaluated the patient and he is resting comfortably. I discussed the exam findings with him and I discussed the treatment plan. He verbalized complete understanding and agreement. He is going to be evaluated for further treatment. 931: I discussed the patients case with SUSANA Green. He is going to evaluate the patient for further treatment. 0945: Ordered Diltiazem HCl 125 mg/Dextrose 125 ml @ 0 mls/hr Protocol, Diltiazem HCl 20 mg IV. Medical Decision Differentials considered include acute myocardial infarction, acute coronary syndrome, myocarditis, pericarditis, pericardial effusions /tamponade, esophageal perforation, thoracic aortic dissection, pulmonary embolism, pneumonia, pneumothorax, pancreatitis, shingles, acute cholecystitis, and perforated abdominal viscus. This is a 71-year-old male who presents to the ED with a chief complaint of tachycardia. The patient also has some chest pain and some dyspnea on exertion. Details listed above. The patient's initial evaluation revealed a tachycardia with heart rate around 150. His initial twelve-lead EKG revealed atrial flutter at a rate of 146. His exam was otherwise unremarkable and he is in no distress. CBC and complete metabolic panel were unremarkable. Troponin was negative. Glucose is slightly elevated. The patient was treated with 50 mg of IV Lopressor. He did not immediately convert but subsequent converted into a normal sinus rhythm prior to Cardizem, which was ordered, being given. The patient was admitted by the hospitalist service for further evaluation and care. Medication Reconcilliation Current Medication List: was personally reviewed by me Blood Pressure Screening Patient's blood pressure: Normal blood pressure Blood pressure disposition: Did not require urgent referral Consults Time Called: [phone] Consulting Physician: SUSANA Green Returned Call: [phone] I discussed the patients case with SUSANA Green. He is going to evaluate the patient for further treatment. Impression Primary Impression: New onset atrial flutter Scribe Attestation The scribe's documentation has been prepared under my direction and personally reviewed by me in its entirety. I confirm that the note above accurately reflects all work, treatment, procedures, and medical decision making performed by me. Departure Information Dispostion Being Evaluated By Hospitalist Referrals No Doctor, Assigned (PCP)
[2017-03-25 15:40] VITALS: BP 128/90; PULSE 84; TEMP 36.7; O2SAT 95
--- NOTE | 2017-03-25 15:47 | ECHOCARDIOGRAM REPORT ---
*NOTICE TO RECEIVING CONSTITUTION PARTY AGENCY This information is strictly Confidential and protected under [place] law. [place] law prohibits you from making any further disclosure of this information unless further disclosure is expressly permitted by the written consent of the person to whom it pertains or is authorized by law. A general authorization for the release of medical or other information is not sufficient for this purpose. Hospital accepts no responsibility if the information is made available to any other person, INCLUDING THE PATIENT. Interpretation Summary * Name: GINGER YBARRA Study Date: 03/25/2017 12:40 PM BP: 100/77 mmHg * Patient Location: [facility] HR: 82 * : 1945 (M/d/yyyy) Gender: Male Height: 69 in * Age: 71 yrs Ethnicity: [place] Weight: 187 lb * Ordering Physician: Efraín Mauricio * Referring Physician: Self, Referred * Performed By: Eric Lambert RCS * * Reason For Study: A-Flutter * BSA: 2.0 m2 * -- Conclusions -- * Left ventricular systolic function is normal. * No regional wall motion abnormalities noted. * Ejection Fraction = 60-65%. * There is borderline concentric left ventricular hypertrophy. * Grade I diastolic dysfunction, (abnormal relaxation pattern). * No significant valvular pathology. Procedure Details * A complete two-dimensional transthoracic echocardiogram was performed (2D, M-mode, Doppler and color flow Doppler). * A contrast injection of Definity was performed to improve assessment of LV function. * Contrast was injected into an intravenous site in the right arm. * One vial of Definity ultrasound contrast was diluted in normal saline to a total volume of 10 ml. A total of '1' ml of solution was administered during imaging. * Lot # [id number] of Definity utilized for procedure. * Expiration date . * The attending nurse who injected the contrast agent was Aminata Ramos RN. Left Ventricle * The left ventricle is normal in size. * There is borderline concentric left ventricular hypertrophy. * Ejection Fraction = 60-65%. * Left ventricular systolic function is normal. * No regional wall motion abnormalities noted. Right Ventricle * The right ventricle is grossly normal size. * The right ventricular systolic function is normal as assessed by tricuspid annular plane systolic excursion (TAPSE) (normal >1.5 cm). Atria * The left atrium is mildly dilated. * Right atrial size is normal. * There is no evidence of atrial septal defect, but resolution does not allow assessment for a patent foramen ovale. Mitral Valve * The mitral valve is grossly normal. * There is no mitral valve stenosis. * Significant mitral regurgitation is absent. Tricuspid Valve * The tricuspid valve is not well visualized, but is grossly normal. * There is no tricuspid stenosis. * Significant tricuspid regurgitation is absent. Aortic Valve * The aortic valve is normal in structure and function. * No hemodynamically significant valvular aortic stenosis. * No aortic regurgitation is present. Pulmonic Valve * The pulmonary valve is not well seen, but the Doppler examination is normal without significant regurgitation or stenosis. Great Vessels * The aortic root is normal size. * The pulmonary is not well visualized. Pericardium/Pleural * There is no pericardial effusion. Great Vessels * Normal inferior vena cava size and collapsability with sniff indicates a normal right atrial pressure of 3 mmHg Left Ventricular Diastolic Function * Grade I diastolic dysfunction, (abnormal relaxation pattern). MMode 2D Measurements and Calculations IVSd 1.0 cm LVIDd 4.3 cm LVPWd 1.1 cm IVS/LVPW 0.96 EDV(Teich) 82.8 ml EDV(cubed) 79.2 ml LV mass(C)d 154.5 grams LV mass(C)dI 76.9 grams/m\S\2 Ao root diam 3.4 cm Ao root area 8.9 cm\S\2 ACS 1.7 cm LA dimension 3.9 cm asc Aorta Diam 3.1 cm LA/Ao 1.2 EDV(MOD-sp4) 82.8 ml ESV(MOD-sp4) 24.5 ml EF(MOD-sp4) 70.4 % EDV(MOD-sp2) 63.5 ml ESV(MOD-sp2) 24.3 ml EF(MOD-sp2) 61.7 % SV(MOD-sp4) 58.3 ml SI(MOD-sp4) 29.0 ml/m\S\2 SV(MOD-sp2) 39.1 ml SI(MOD-sp2) 19.5 ml/m\S\2 Doppler Measurements and Calculations MV E max brenda 52.5 cm/sec MV A max brenda 74.7 cm/sec MV E/A 0.70 MV P1/2t max brenda 55.3 cm/sec MV P1/2t 90.3 msec MVA(P1/2t) 2.4 cm\S\2 MV dec slope 179.5 cm/sec\S\2 MV dec time 0.24 sec Ao V2 max 89.9 cm/sec Ao max PG 3.2 mmHg Ao max PG (full) 0.42 mmHg LV V1 max PG 2.8 mmHg LV V1 max 83.8 cm/sec PA V2 max 73.7 cm/sec PA max PG 2.2 mmHg TR max brenda 188.9 cm/sec
--- NOTE | 2017-03-25 15:50 | CARDIOLOGY CONSULTATION ---
DATE OF CONSULTATION: 03/25/2017 PERTINENT HISTORY: Mr. Christensen is a 71-year-old white male admitted earlier today with paroxysmal atrial flutter. This consultation was ordered to assist in his cardiac management. Of note, the patient typically follows with Dr. Loco in [place]. The patient was in his usual state of health until when he had the abrupt onset of sustained palpitations, lasting 20-30 minutes. The patient noticed a dull ache in his chest, but no other associated symptoms. He administered 1 sublingual nitroglycerin and his symptoms eventually resolved. The patient had recurrence of his symptoms on Saturday, again with an episode lasting for approximately 20-30 minutes. On Saturday, he had his third episode which was similar to that described above. This morning, at 4:00 a.m., he was awakened from a sound sleep with sustained palpitations and then dullness in his chest. He took 1 sublingual nitroglycerin and his symptoms resolved. However, at 5:30, it recurred and therefore, he opted to present to the Emergency Room for further care. On arrival here, the patient was seemed to be in atrial flutter with 2:1 conduction. He spontaneously converted to sinus rhythm and hospitalization was recommended. The patient has had occasional episodes of intermittent palpitations over the years. However, now they have been sustained, as described above. The patient has a chronic exertional chest pain syndrome which he relates to his asbestosis. He has had 3 cardiac catheterizations, the most recent of which was in January 2016. This showed nonobstructive disease with a "40% blockage in one of the arteries." The patient does not experience exertional dyspnea, syncope, presyncope, PND, orthopnea, lower extremity edema, or claudication. Currently, the patient is resting comfortably in bed without complaints. PAST MEDICAL HISTORY: 1. Nonobstructive coronary artery disease - January 2016. 2. Chronic exertional chest pain syndrome. 3. Hypertension. 4. Hypercholesterolemia. 5. Hyperglycemia. 6. Asbestosis. 7. Diverticulosis. 8. GERD. 9. Inguinal hernia repair x2. MEDICATIONS: 1. Metoprolol tartrate 12.5 mg b.i.d. 2. Norvasc 5 mg per day. 3. Eliquis 5 mg b.i.d. 4. Aspirin 162 mg daily. 5. Protonix 40 mg b.i.d. 6. Xalatan drops at bedtime. ALLERGIES: CODEINE. SOCIAL HISTORY: The patient is and lives with his . He is a retired [place]. 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 Smoked 1 pack of cigarettes daily over 30 years, quit in 1997. Uses alcohol occasionally. FAMILY HISTORY: Mother at age 90 from dementia. Father at age 61 from the biliary tree carcinoma. REVIEW OF SYSTEMS: A 10-point review of systems is negative except for that described above. PHYSICAL EXAMINATION: GENERAL: This is a well-developed, well-nourished, white male lying supine in bed without complaints. VITAL SIGNS: Blood pressure is 111/78 with an irregular pulse of 85. Respiratory rate is 16. The patient is afebrile at 36.6 degrees Celsius. Saturations 96% on room air. HEENT: Negative. NECK: Supple with full carotid upstrokes. No carotid bruits. Jugular venous pressure is flat at 90 degrees. There is no thyromegaly. CARDIOVASCULAR: Reveals a regular rhythm with a normal S1 and S2. No S3, S4, or murmurs are noted. LUNGS: Clear without rales, rhonchi, or wheezes. ABDOMEN: Soft and nontender without bruits. EXTREMITIES: Reveal intact radial artery and posterior tibial pulses bilaterally. There is no peripheral edema. DATA: CBC notes hemoglobin 16.8, hematocrit 46.7, white count 5.78, and platelet count of 239,000. Electrolytes note a sodium of 133, potassium 4.3, chloride 100, bicarbonate 24, BUN 19, creatinine 1.02, glucose 196. Calcium level is normal at 9.2, as is the magnesium at 2.4. Initial troponin is undetectable at less than 0.015. CK 76 with an MB fraction of less than 0.5. TSH level is normal at 1.71. AST is mildly elevated at 43 with an ALT elevated at 90. Initial EKG notes atrial flutter with 2:1 conduction. There is nonspecific ST or T-wave abnormality. Chest x-ray shows pleural plaques. IMPRESSION: Mr. Christensen was admitted with paroxysmal atrial flutter. I suspect that this has been present for several years. His paroxysms are now lasting for longer periods of time. Suggest increasing metoprolol tartrate to 25 mg b.i.d., hoping to better control of symptoms. If this is not successful, could consider use of an antiarrhythmic, such as flecainide. 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 May be best to consider a statin medication now as he has nonobstructive coronary artery disease. PLAN: 1. Increase metoprolol tartrate to 25 mg b.i.d. 2. Agree with initiation of Eliquis. 3. Could consider antiarrhythmic therapy if increase beta nora dose not effective. 4. Review echocardiogram at priority. 5. Further recommendations depending on his clinical course.
[2017-03-25 16:00] VITALS: O2SAT 95
[2017-03-25 20:00] VITALS: O2SAT 95
[2017-03-25 20:33] VITALS: BP 133/76; PULSE 77; TEMP 36.6; O2SAT 96
[2017-03-25] MEDS ORDERED: ASPIRIN 81 MG ECTAB PO SCH (21:00)
[2017-03-25] MEDS ORDERED: LATANOPROST 0.005% OP SOLN 2.5 ML BTL OPB SCH (21:00)
[2017-03-25] MEDS ORDERED: METOPROLOL TARTRATE 25 MG TAB PO SCH (21:00)
[2017-03-25] MEDS: PANTOprazole SOD 40 MG TAB PO SCH (21:02)
[2017-03-25 23:59] VITALS: BP 101/65; PULSE 71; TEMP 36.7; O2SAT 95
[2017-03-26 03:20] VITALS: BP 99/63; PULSE 69; TEMP 36.6; O2SAT 92
[2017-03-26 06:43] LABS: BUN/CREATININE RATIO 26.6 (10-20); CALCIUM 8.6 mg/dl (8.5-10.1); CREATININE 0.82 mg/dl (0.60-1.40); POTASSIUM 3.8 mmol/L (3.5-5.1)
[2017-03-26 06:48] LABS: CHOLESTEROL/HDL RATIO 4.9
[2017-03-26 07:32] VITALS: BP 127/79; PULSE 85; TEMP 36.6; O2SAT 93
[2017-03-26] MEDS: PANTOprazole SOD 40 MG TAB PO SCH (08:04)
[2017-03-26] MEDS: APIXABAN 2.5 MG TAB PO SCH (08:05)
[2017-03-26] MEDS ORDERED: AMLODIPINE BESYLATE 5 MG TAB PO SCH (09:00)
[2017-03-26] MEDS ORDERED: CEROVITE ADV FORMULA TAB PO SCH (09:00)
[2017-03-26] MEDS ORDERED: METOPROLOL TARTRATE 25 MG TAB PO SCH (09:00)
[2017-03-26] MEDS ORDERED: ASPI81TA28 PO (09:22)
[2017-03-26] MEDS ORDERED: METO25TA56 PO (09:22)
[2017-03-26] MEDS ORDERED: APIX1TAB3 PO (09:22)
[2017-03-26] MEDS ORDERED: ATOR-22 PO (09:22)
--- NOTE | 2017-03-26 10:16 | Discharge Instructions ---
Discharge Instructions Date of Service Mar 26, 2017. Admission Reason for Admission: Atrial Flutter Discharge Discharge Diagnosis / Problem: atrial flutter Discharge Goals Goal(s): Learn about illness, Diagnostic testing, Therapeutic intervention Activity Recommendations Activity Limitations: resume your previous activity . Instructions / Follow-Up Instructions / Follow-Up From Dr. Mauricio: 1. The cause of your palpitations and presenting symptoms was a condition called atrial flutter. It is a rapid irregular heart rhythm that originates from the top portion of the heart. You converted back to normal rhythm while awaiting admission in the emergency room. There is a good chance that the palpitations you have had for a while was due to this condition. 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 Loco in [place] within 1-2 weeks for this * because you will now be taking a blood thinner please REDUCE your aspirin to 81mg once daily 2. Information about blood thinners (anticoagulant) - Anticoagulants will thin your blood to help prevent new clots. * You should take your medication exactly as directed. * Never skip a dose. * Never take a double dose. If you miss a dose, take it as soon as you remember. Call your Primary Care doctor if you experience any of the following: * Swelling or Pain in your leg * Sudden, continuous pain deep in a muscle * Pain that worsens when you are active or when you stand still for a long time * Chest Pain * Sudden Shortness of Breath * Rapid or pounding heart beat * Fainting * Dizziness * Cough with blood or bloody sputum * Sweating more than normal * Bruises * Heavy or uncontrolled bleeding * Blood in your urine, stool or vomit * Black or tarry stools * heavy nosebleeds It is recommended that when you shave that you use an electric razor rather than standard straight razors. I would also recommend that you stop completely your meloxicam (or at least try to use the meloxicam on a significantly reduced basis) to prevent stomach irritation. Taking baby aspirin, a blood thinner, and meloxicam could potentially cause stomach ulcers and/or irritation. 3. Coronary disease - Because you have known coronary disease (plaque build-up in the arteries of the heart) we recommend that you restart a cholesterol drug. Please take lipitor (atorvastatin) 20mg once daily. Script sent to [facility] for your. 4. pre-diabetes - * your hemoglobin a1c was 5.7% * this is in the pre-diabetes range * you should have a hemoglobin a1c at least once-twice yearly * please follow the recommendations from the control engineer at [facility] for your diet to keep your blood sugars controlled 5. Follow-up - * please see Dr. Loco within 1-2 weeks * please see the [facility] - Dr. Hernandez - within 1 week 6. Return to [facility] if - * you have palpitations that last a lengthy period of time (hours, not simply minutes) and are not resolving * the palpitations are associated with shortness of breath, severe chest pain, profuse sweating, or dizziness * any concern of bleeding from the urine, rectum, etc * any other concerns Current Hospital Diet Patient's current hospital diet: AHA Diet (Heart Healthy), Diabetes Type 2 Diet Discharge Diet Recommended Diet: AHA Diet (Heart Healthy), Diabetes Type 2 Diet Procedures Procedures Performed: echocardiogram showing normal heart function and mild enlargement of left atrium and the left ventricle Pending Studies Studies pending at discharge: no Laboratory Results Hemoglobin A1c Test 03/25/17 08:00 Range/Units Estimated Average Glucose 117 mg/dl Hemoglobin A1c 5.7 H 4.5-5.6 % Lipid Panel Test 03/26/17 05:24 Range/Units Triglycerides Level 178 H 0-150 mg/dl Cholesterol Level 161 0-200 mg/dl HDL Cholesterol 33 mg/dl Cholesterol/HDL Ratio 4.9 LDL Cholesterol, Calculated 92 mg/dl Medical Emergencies . Who to Call and When: Medical Emergencies: If at any time you feel your situation is an emergency, please call 911 immediately. . Non-Emergent Contact Non-Emergency issues call your: Primary Care Provider, Heel Cementer Machine Call Non-Emergent contact if: you have any medication questions . . "Provider Documentation" section prepared by Efraín Mauricio. . VTE Core Measure Inpt VTE Proph given/why not?: Other Anticoagulation
[2017-03-26 10:33] VITALS: BP 127/79; PULSE 85; TEMP 36.6; O2SAT 93
--- NOTE | 2017-03-26 11:24 | CARDIOLOGY PROGRESS NOTE ---
DATE: 03/26/2017 SUBJECTIVE: Mr. Christensen is resting comfortably in bed without complaints of chest pain, dyspnea, or palpitations. He is anxious for hospital discharge. He is tolerating increased dose of metoprolol without difficulty. OBJECTIVE: VITAL SIGNS: Blood pressure is 127/79 with a regular pulse of 80. Respiratory rate is 18. The patient is afebrile at 36.6 degrees Celsius. Saturations 93% on room air. NECK: Supple with full carotid upstrokes. No carotid bruits. Jugular venous pressure is flat at 90 degrees. There is no thyromegaly. CARDIOVASCULAR: Reveals a regular rhythm with normal S1 and S2. No S3, S4, or murmurs are noted. LUNGS: Clear without rales, rhonchi, or wheezes. ABDOMEN: Soft and nontender without bruits. EXTREMITIES: Reveal intact radial artery pulses bilaterally. There is no peripheral edema. DATA: Electrolytes note a sodium of 136, potassium 3.8, chloride 104, bicarbonate 25, BUN 22, creatinine 0.82, glucose 106. LDL cholesterol is 92 with an HDL of 33. financial services associate is benign. IMPRESSION AND PLAN: 1. Paroxysmal atrial flutter - the patient is tolerating increased dose of metoprolol tartrate. As noted previously, would hold on antiarrhythmic therapy at this time. Hopefully, increased dose of his beta nora defective in adequately controlling his symptoms. No need to proceed with radiofrequency ablation at this time. 2. Nonobstructive coronary artery disease - cardiac catheterization in January 2016 apparently showed a nonobstructive disease. Continue medical management. Agree with adding a statin. 3. Chronic exertional chest pain syndrome. 4. Hypertension - controlled. 5. Hypercholesterolemia - agreed with starting statin. 6. Hyperglycemia. 7. Disposition - stable for hospital discharge.
--- NOTE | 2017-03-26 15:42 | Discharge Summary ---
Discharge Summary Date of Service Mar 26, 2017. Discharge Summary Admission Date: Mar 25, 2017 at 10:25 Discharge Date: Mar 26, 2017 Discharge Disposition: Home Principal Diagnosis: paroxysmal atrial flutter Problems/Secondary Diagnoses: 1. nonobstructive CAD 2. abnormal LFTs - resolved 3. HTN 4. pre-T2DM 5. GERD Immunizations: Have You Had Influenza Vaccine: No History of Tetanus Vaccine?: No History of Pneumococcal: No History of Hepatitis B Vaccine: No Procedures: echocardiogram: * -- Conclusions -- * Left ventricular systolic function is normal. * No regional wall motion abnormalities noted. * Ejection Fraction = 60-65%. * There is borderline concentric left ventricular hypertrophy. * Grade I diastolic dysfunction, (abnormal relaxation pattern). * No significant valvular pathology. Consultations: cardiology - Justen Horner MD websphere portal developer for dietary counseling for pre-DM Medication Reconciliation New Medications: Atorvastatin (Lipitor) 20 Mg Tab 1 TAB PO DAILY for 30 Days, #30 TAB 1 Refill Apixaban (Eliquis) 5 Mg Tab 5 MG PO BID for 30 Days, #60 TAB 0 Refills Changed Medications: Aspirin (Aspirin Ec) 81 Mg Tab 1 TABS PO QPM, #90 TABS 3 Refills (Changed from: 2 TABS; Refills: ) Metoprolol Tartrate (Lopressor) (Lopressor) 25 Mg Tab 25 MG PO BID, #60 TAB 1 Refill (Changed from: 12.5 MG; Refills: ) Continued Medications: Amlodipine (Norvasc) 5 Mg Tab 5 MG PO QAM, TAB Latanoprost (Xalatan 0.005% Oph Griselda) 0.005 % Griselda 1 DROP OPB HS Multiple Vitamins W/ Minerals (Vision Formula/Lutein) 1 Tab Tab 1 TAB PO QAM Nitroglycerin (Nitrostat) 0.4 Mg Sub 0.4 MG UT UD PRN for Chest Pain, BTL Omeprazole (Prilosec) 20 Mg Capcr 20 MG PO BID Discontinued Medications: Meloxicam (Mobic) 15 Mg Tab 15 MG PO QAM, TAB Discharge Exam Physical Exam: General Appearance: WD/WN, no apparent distress ENT: pharynx normal Neck: no JVD Respiratory/Chest: lungs clear, no respiratory distress, no accessory muscle use Cardiovascular: regular rate, rhythm, no gallop, no murmur, normal peripheral pulses Abdomen / GI: normal bowel sounds, non tender, soft, no organomegaly Extremities: no pedal edema Neurologic/Psychiatric: alert, oriented x 3 Hospital Course HISTORY OF PRESENT ILLNESS: 71yo male with history of nonobstructive CAD, HTN, and long-standing palpitations who presented with discrete episodes of palpitations starting . The episode of palpitations on of last week lasted about 30 minutes. It was associated with a mild chest "dull ache". The patient decided to take nitroglycerin SL and within 20-30 minutes the palpitations resolved. He went on to have daily episodes of palpitations on Saturday and Saturday each lasting about 30 minutes and resolving with use of SL nitroglycerin. On Saturday AM at approximately 0400 he was awakened by palpitations. He again had a "dull ache" in the chest. The palpitations persisted for the remainder of the morning despite taking a SL nitroglycerin. It was at that time he decided to seek medical attention at [facility]. At ER presentation he was found to be in rapid a flutter with HR of about 150. Multiple doses of IV lopressor were given without any change in heart rate. At the conclusion of my admission assessment he spontaneously converted back to NSR. Fortunately he had no evidence of complicating CHF or ACS at time of admission. HOSPITAL COURSE: The patient was placed on telemetry and had no further runs of atrial flutter or other dysrhythmia. TSH, potassium, and magnesium levels were all normal. Serial troponins were negative x 3. Due to a CHADS-VASC score of at least 3 systemic anticoagulation was recommended and he was subsequently placed on eliquis twice daily. The patient was seen in consult by Dr. Justen Horner, [facility] cardiology, who recommended increasing his beta nora to 25mg BID, institution of systemic anticoagulation, initiation of statin therapy due to known history of nonobstructive CAD, and performing echocardiogram. Full echo report is listed above. The patient was counseled that starting an antiarrhythmic was a possibility ( e.g. fleicanide) but that this could be further discussed with his primary sourcing analyst, Dr. Federico Loco, at time of follow-up. Despite the patient's complaints of chest discomfort over a 4-day period his troponins all remained zero while hospitalized. LV wall motion on echocardiogram was normal. The patient's report of his palpitation episodes resolving with SL nitroglycerin use was felt to be quite unusual. He was asked to follow-up with Dr. Loco who has previously performed several cardiac catheterizations on him (most recent about 1 year ago showing nonobstructive CAD by report). Due to concurrent use of anticoagulation he was asked to lower his daily aspirin use to 81mg. Other issues addressed while here - 1. pre-T2DM - hemoglobin a1c was 5.7%. He was counseled that he has pre- diabetes (random glucose at time of ER presentation was nearly 200). He received dietary counseling by our websphere portal developer team. 2. HTN - remained controlled with metoprolol and amlodipine. 3. hyperlipidemia - results are as follows - Hemoglobin A1c Test 03/25/17 08:00 Range/Units Estimated Average Glucose 117 mg/dl Hemoglobin A1c 5.7 H 4.5-5.6 % Lipid Panel Test 03/26/17 05:24 Range/Units Triglycerides Level 178 H 0-150 mg/dl Cholesterol Level 161 0-200 mg/dl HDL Cholesterol 33 mg/dl Cholesterol/HDL Ratio 4.9 LDL Cholesterol, Calculated 92 mg/dl In light of his CAD history he was advised to initiate statin therapy. He was placed on lipitor 20mg daily. 4. elevated AST, ALT, total protein - all were mildly high at presentation but normalized by the next day. The etiology of the initial abnormalities was uncertain. Total Time Spent: Greater than 30 minutes This includes examination of the patient, discharge planning, medication reconciliation, and communication with other providers. Discharge Instructions Please refer to the electronic Patient Visit Report (Discharge Instructions) for additional information. [facility] [place] - Dr. Aristides Hernandez - SaturdayApril 02 at 10:[address] Loco at [facility] ([place], [place]) on SaturdayApril 09 at 9:40 am Additional Copies To Federico Loco; Harini Hanson M.D.; Aristides Hernandez MD; [facility]
== END 2017-03-26 11:10 | disposition home or self-care (01) ==
LOC: C.EDB 07:45 → C.2T 10:25 → ENRESERV 10:44
PROVIDERS: ADMIT Internal Medicine; ATTEND Internal Medicine
DX: I48.92 Unspecified atrial flutter (principal); I25.10 Atherosclerotic heart disease of native coronary artery without angina pectoris; R94.5 Abnormal results of liver function studies; I10 Essential (primary) hypertension; K21.9 Gastro-esophageal reflux disease without esophagitis; E78.5 Hyperlipidemia, unspecified; Z98.890 Other specified postprocedural states; Z87.891 Personal history of nicotine dependence; Z79.82 Long term (current) use of aspirin; Z79.899 Other long term (current) drug therapy; Z88.5 Allergy status to narcotic agent; Z81.8 Family history of other mental and behavioral disorders; Z80.0 Family history of malignant neoplasm of digestive organs

== ENCOUNTER 2017-05-02 10:11 | Observation (INO) | payer OTHER ==
[~2017-05-02] VITALS: Ht 175.3 cm; Wt 78.0 kg
[~2017-05-02 10:11] MED LIST changes: +APIX1TAB3 PO; +ATOR-22 PO; -MELO15TA4 PO
[2017-05-02] MEDS ORDERED: ACETAMINOPHEN 500 MG TAB PO STA (10:59)
--- NOTE | 2017-05-02 11:31 | DIAGNOSTIC IMAGING REPORT ---
CT HEAD WITHOUT CONTRAST (CT) CLINICAL HISTORY: Head trauma. Patient on blood thinners. COMPARISON STUDY: No previous studies for comparison. TECHNIQUE: Axial CT of the brain is performed from the vertex to the skull base. IV contrast was not administered for this examination. A dose lowering technique was utilized adhering to the principles of ALARA. CT DOSE: 614.27 mGy.cm FINDINGS: No intra or extra-axial mass lesions are visualized. There is no CT evidence of acute cortical infarction. There is no evidence of midline shift. There is no acute hemorrhage. No calvarial fractures are visualized. There are minor white matter hypodensities likely on a small vessel basis. There is no evidence of pathologic ventricular dilatation. There is no evidence of acute sinusitis. 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 IMPRESSION: No acute intracranial findings Electronically signed by: Mikey Shaikh M.D. 05/02/2017 11:30 AM Dictated Date/Time: 05/02/2017 11:24 AM
--- NOTE | 2017-05-02 11:37 | EMERGENCY ROOM VISIT NOTE ---
History Report prepared by Charo: Chris Ortega Under the Supervision of: Dr. Taras Mclaughlin M.D. First contact with patient: 10:53 Chief Complaint: FALL Stated Complaint: FALL, L HIP History of Present Illness The patient is a 71 year old male who presents to the Emergency Room with complaints of a sudden fall occurring around 0900 his morning after slipping on the ice and was laying on the ground for a while. He currently rates his discomfort as a 7/10 in severity. The patient states that he landed on his left hip, and he did not hit his head. He notes that he is having difficulty walking due to the pain and he has pain with just about any movement. The patient denies any loss of consciousness, head pain, neck pain, chest pain, abdominal pain, and back pain. The patient states that he is currently on Eliquis for A- flutter. He notes that after the fall he lost control of his bladder. Source of History: patient Onset: 0900 Position: other (global) Symptom Intensity: 7/10 Quality: other (fall) Timing: other (sudden) Modifying Factors (Worsening): movement Associated Symptoms: No LOC, No headache, No neck pain, No chest pain, No abdominal pain, No back pain Note: Associated symptoms: Left hip pain Review of Systems See HPI for pertinent positives & negatives. A total of 10 systems reviewed and were otherwise negative. Past Medical & Surgical Medical Problems: (1) Atrial flutter (2) Coronary Atherosclerosis Of [place] Coronary Vessel (3) Diverticulosis Colon (W/O Ment Of Hemorrhage) (4) Esophageal Reflux (5) Fall due to ice or snow (6) Hyperlipidemia Nec/Nos (7) Hypertension Nos (8) Palpitations Surgical Problems: (1) H/O cardiac catheterization Family History FH: heart disease Social History Smoking Status: Former Smoker Alcohol Use: occasionally Drug Use: none Marital Status: Housing Status: lives with family Occupation Status: retired Current/Historical Medications Scheduled Amlodipine (Norvasc), 5 MG PO QAM Apixaban (Eliquis), 5 MG PO BID Aspirin (Aspirin Ec), 81 MG PO DAILY Atorvastatin (Lipitor), 20 MG PO DAILY Latanoprost (Xalatan 0.005% Oph Griselda), 1 DROP OPB HS Metoprolol Tartrate (Lopressor) (Lopressor), 25 MG PO BID Multiple Vitamins W/ Minerals (Vision Formula/Lutein), 1 TAB PO QAM Omeprazole (Prilosec), 20 MG PO BID Scheduled PRN Nitroglycerin (Nitrostat), 0.4 MG UT UD PRN for Chest Pain Allergies Coded Allergies: Codeine (Verified Allergy, Mild, NAUSEA, 05/02/17) Physical Exam Vital Signs Date Time Temp Pulse Resp B/P (MAP) Pulse Ox O2 Delivery O2 Flow Rate FiO2 05/02/17 16:35 80 142/85 95 Room Air 05/02/17 14:43 77 18 114/76 93 Room Air 05/02/17 13:42 81 18 138/79 96 Room Air 05/02/17 13:12 88 18 137/85 97 Room Air 05/02/17 12:13 67 16 116/71 95 Room Air 05/02/17 10:26 36.8 77 18 137/91 97 Room Air Physical Exam GENERAL: Patient is in no acute distress. HEENT: No acute trauma, normocephalic atraumatic, mucous membranes moist, no nasal congestion, no scleral icterus. NECK: No stridor, no adenopathy, no meningismus, trachea is midline, no posterior C-spine tenderness. LUNGS: Clear to auscultation bilaterally, no wheeze, no rhonchi, breath sounds equal. HEART: Without murmurs gallops or rubs, regular rate and rhythm. ABDOMEN: Soft, nontender, bowel sounds positive, no hernias, no peritonitis. EXTREMITIES: Tender over the lateral left hip. Pain worsened with movement of the hip. No contusions. No left lower extremity deformity. NEUROLOGIC: Oriented x 3, no acute motor or sensory deficits, no focal weakness. SKIN: No rash, no jaundice, no diaphoresis. Medical Decision & Procedures ER Provider Diagnostic Interpretation: Radiology results as stated below per my review and radiologist interpretation: PELVIS 1 OR 2 VIEW ROUTINE HISTORY: 71 years-old Male fall, pain, l acute left hip pain status post fall COMPARISON: Left hip radiographs of same day TECHNIQUE: Single AP view of the pelvis FINDINGS: 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 No definite acute fracture or subluxation. No pelvic ring fracture identified. Degenerative changes are seen within the lower lumbar spine. Vascular calcifications are noted. Bones are mildly demineralized. IMPRESSION: No acute fracture or subluxation. The above report was generated using voice recognition software. It may contain grammatical, syntax or spelling errors. Electronically signed by: Tray Araujo M.D. 05/02/2017 11:56 AM Dictated Date/Time: 05/02/2017 11:54 AM L HIP UNILATERAL 2 VIEWS CLINICAL HISTORY: Left hip pain status post trauma COMPARISON: None. DISCUSSION: There are moderate osteoarthritic changes present. There are no acute fractures. There is no dislocation. There is an os acetabulum. IMPRESSION: Moderate osteoarthritic change. No acute fractures Electronically signed by: Mikey Shaikh M.D. 05/02/2017 11:53 AM Dictated Date/Time: 05/02/2017 11:[address] HEAD WITHOUT CONTRAST (CT) CLINICAL HISTORY: Head trauma. Patient on blood thinners. COMPARISON STUDY: No previous studies for comparison. TECHNIQUE: Axial CT of the brain is performed from the vertex to the skull base. IV contrast was not administered for this examination. A dose lowering technique was utilized adhering to the principles of ALARA. CT DOSE: 614.27 mGy.cm FINDINGS: No intra or extra-axial mass lesions are visualized. There is no CT evidence of acute cortical infarction. There is no evidence of midline shift. There is no acute hemorrhage. No calvarial fractures are visualized. There are minor white matter hypodensities likely on a small vessel basis. There is no evidence of pathologic ventricular dilatation. There is no evidence of acute sinusitis. 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 IMPRESSION: No acute intracranial findings Electronically signed by: Mikey Shaikh M.D. 05/02/2017 11:30 AM Dictated Date/Time: 05/02/2017 11:24 AM L LOWER EXTREMITY WITHOUT CT DOSE: 524.45 mGy.cm HISTORY: Trauma. Pain. fall, left hip pain TECHNIQUE: Multiaxial CT images of the left hip were performed and reformatted in the sagittal and coronal plane without the use of contrast. A dose lowering technique was utilized adhering to the principles of ALARA. COMPARISON: Routine images same date FINDINGS: Generalized degenerative change throughout the left hip. Peripheral osteophytes surrounding the acetabulum as well as femoral head. No evidence for acetabular protrusion. Small osteophyte projecting from the superior aspect of the left acetabulum which appears to show a nondisplaced cortical fracture. No additional fracture of either hip or acetabulum. All remaining osseous structures show no acute abnormality. IMPRESSION: 1. Nondisplaced cortical fracture of a small superior osteophyte of the peripheral left acetabulum. 2. No additional acute bony abnormality. 3. Generalized degenerative change left hip. The above report was generated using voice recognition software. It may contain grammatical, syntax or spelling errors. Electronically signed by: Yemi Garcias M.D. 05/02/2017 12:36 PM Dictated Date/Time: 05/02/2017 12:31 PM Laboratory Results 05/02/17 11:10 05/02/17 11:10 Test 05/02/17 11:10 Red Blood Count 4.95 M/uL (4.7-6.1) Mean Corpuscular Volume 88.3 fL (80-100) Mean Corpuscular Hemoglobin 32.1 pg (25-34) Mean Corpuscular Hemoglobin Concent 36.4 g/dl (32-36) RDW Standard Deviation 40.7 fL (36.4-46.3) RDW Coefficient of Variation 12.7 % (11.5-14.5) Mean Platelet Volume 10.0 fL (7.4-10.4) Anion Gap 8.0 mmol/L (3-11) Est Creatinine Clear Calc Drug Dose 94.0 ml/min Estimated GFR () 108.5 Estimated GFR (Non- 93.6 BUN/Creatinine Ratio 22.0 (10-20) Calcium Level 9.3 mg/dl (8.5-10.1) Laboratory results reviewed by me. Medications Administered Medications (Trade) Dose Ordered Sig/Devi Route Start Time Stop Time Status Last Admin Dose Admin Acetaminophen (Tylenol Tab) 1,000 mg NOW STAT PO 05/02/17 10:59 05/02/17 11:01 DC 05/02/17 11:11 1,000 MG Morphine Sulfate (MoRPHine SULFATE INJ) 4 mg Q15M PRN IV 05/02/17 13:15 05/16/17 13:14 05/02/17 13:44 4 MG Morphine Sulfate (MoRPHine SULFATE INJ) 4 mg NOW STAT IV 05/02/17 13:06 05/02/17 13:08 DC 05/02/17 13:11 4 MG Ondansetron HCl (Zofran Inj) 4 mg NOW STAT IV 05/02/17 13:06 1/18/18 13:08 DC 05/02/17 13:11 4 MG ED Course 1053: The patient was evaluated in room C10. A complete history and physical exam was performed. 1059: Tylenol Tab 1000mg PO 1206: I reevaluated the patient, and he was doing well. 1303: I reassessed the patient, and he wanted some medications for pain. 1306: Zofran 4mg IV, Morphine Sulfate 4mg IV 1315: Morphine Sulfate 4mg IV 1318: I discussed the patient's case with Rios Herbert PA-C Orthopedics, and he states that it is a non-surgical case, and to weight bear as tolerated. 1331: I reevaluated the patient, and we are trying to get the patient into [facility]. 1610: Discussed the patient's case with Dr. Waggoner. The patient will be evaluated for further management. Medical Decision Differential diagnoses considered include contusion, hematoma, hip dislocation, hip fracture, and intracranial bleeding. There is no leukocytosis or concerning anemia. No significant electrolyte abnormality or kidney failure. Brain CT shows no acute bleed or mass effect. Films of the left hip and pelvis do not show any fracture and there is no hip dislocation. CT of the left hip shows a fracture of an osteophyte coming from the acetabulum. The patient initially was given Tylenol for pain. His pain became more severe though and he required IV morphine and IV Zofran. Really, now, any movement causes significant discomfort. He was not going to be able to go home. Arrangements were trying to be made to get him to [facility] for rehabilitation and care. He could not be transferred there today as no beds were available. Given the insurance issues, the patient will be hospitalized here at [facility]. I did speak to the patient and the machine adjuster leader case trim. The on-call hospitalist was consulted. When possible, rehabilitation transfer would be warranted. Medication Reconcilliation Current Medication List: was personally reviewed by me Blood Pressure Screening Patient's blood pressure: Elevated blood pressure Monitored by the hospitalist Consults Time Called: [phone] Consulting Physician: Rios Herbert PA-C, Orthopedics Returned Call: [phone] I discussed the patient's case with Rios Herbert PA-C Orthopedics, and he states that it is a non-surgical case, and to weight bear as tolerated. Additional Consults: Time Called: [phone] Consulted Physician: Dr. Waggoner Returned Call: [phone] Additional Comments: Discussed the patient's case with Dr. Waggoner. The patient will be evaluated for further management. Impression Primary Impression: Left hip pain Additional Impressions: Fall Pelvic fracture Scribe Attestation The scribe's documentation has been prepared under my direction and personally reviewed by me in its entirety. I confirm that the note above accurately reflects all work, treatment, procedures, and medical decision making performed by me. Departure Information Dispostion Being Evaluated By Hospitalist Referrals Harini Hanson M.D. (PCP) Patient Instructions My [facility] Problem Qualifiers
--- NOTE | 2017-05-02 11:55 | DIAGNOSTIC IMAGING REPORT ---
L HIP UNILATERAL 2 VIEWS CLINICAL HISTORY: Left hip pain status post trauma COMPARISON: None. DISCUSSION: There are moderate osteoarthritic changes present. There are no acute fractures. There is no dislocation. There is an os acetabulum. IMPRESSION: Moderate osteoarthritic change. No acute fractures Electronically signed by: Mikey Shaikh M.D. 05/02/2017 11:53 AM Dictated Date/Time: 05/02/2017 11:53 AM
--- NOTE | 2017-05-02 11:57 | DIAGNOSTIC IMAGING REPORT ---
PELVIS 1 OR 2 VIEW ROUTINE HISTORY: 71 years-old Male fall, pain, l acute left hip pain status post fall COMPARISON: Left hip radiographs of same day TECHNIQUE: Single AP view of the pelvis FINDINGS: 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 No definite acute fracture or subluxation. No pelvic ring fracture identified. Degenerative changes are seen within the lower lumbar spine. Vascular calcifications are noted. Bones are mildly demineralized. IMPRESSION: No acute fracture or subluxation. The above report was generated using voice recognition software. It may contain grammatical, syntax or spelling errors. Electronically signed by: Tray Araujo M.D. 05/02/2017 11:56 AM Dictated Date/Time: 05/02/2017 11:54 AM
[2017-05-02] MEDS ORDERED: METO25TA56 PO (12:08)
[2017-05-02] MEDS ORDERED: ATOR-22 PO (12:08)
[2017-05-02] MEDS ORDERED: APIX1TAB3 PO (12:08)
[2017-05-02] MEDS ORDERED: ASPI81TA28 PO (12:08)
--- NOTE | 2017-05-02 12:37 | DIAGNOSTIC IMAGING REPORT ---
L LOWER EXTREMITY WITHOUT CT DOSE: 524.45 mGy.cm HISTORY: Trauma. Pain. fall, left hip pain TECHNIQUE: Multiaxial CT images of the left hip were performed and reformatted in the sagittal and coronal plane without the use of contrast. A dose lowering technique was utilized adhering to the principles of ALARA. COMPARISON: Routine images same date FINDINGS: Generalized degenerative change throughout the left hip. Peripheral osteophytes surrounding the acetabulum as well as femoral head. No evidence for acetabular protrusion. Small osteophyte projecting from the superior aspect of the left acetabulum which appears to show a nondisplaced cortical fracture. No additional fracture of either hip or acetabulum. All remaining osseous structures show no acute abnormality. IMPRESSION: 1. Nondisplaced cortical fracture of a small superior osteophyte of the peripheral left acetabulum. 2. No additional acute bony abnormality. 3. Generalized degenerative change left hip. The above report was generated using voice recognition software. It may contain grammatical, syntax or spelling errors. Electronically signed by: Yemi Garcias M.D. 05/02/2017 12:36 PM Dictated Date/Time: 05/02/2017 12:31 PM
[2017-05-02] MEDS ORDERED: ONDANSETRON INJ 2 MG/ML 2 ML VIAL IV STA (13:06)
[2017-05-02] MEDS ORDERED: MoRPHine SULFATE 4 MG/ML 1 ML CARP\\VIAL IV STA (13:06)
[2017-05-02] MEDS ORDERED: MoRPHine SULFATE 4 MG/ML 1 ML CARP\\VIAL IV PRN ×2 (13:15→16:45)
[2017-05-02 15:18] LABS: CALCIUM 9.3 mg/dl (8.5-10.1); CREATININE 0.7 mg/dl (0.60-1.40); POTASSIUM 4.5 mmol/L (3.5-5.1)
[2017-05-02 15:23] LABS: HEMATOCRIT 43.7 % (42-52); HEMOGLOBIN 15.9 g/dL (14.0-18.0); MEAN CELL VOLUME 88.3 fL (80-100); MEAN CORPUSCULAR HEMOGLOBIN 32.1 pg (25-34); MEAN CORPUSCULAR HGB CONC 36.4 g/dl (32-36); PLATELET COUNT 219 K/uL (130-400); RED CELL DISTRIBUTION WIDTH CV 12.7 % (11.5-14.5); RED CELL DISTRIBUTION WIDTH SD 40.7 fL (36.4-46.3); WHITE BLOOD COUNT 6.18 K/uL (4.8-10.8)
[2017-05-02] MEDS ORDERED: MoRPHine SULFATE 2 MG/ML CARP IV PRN (16:45)
[2017-05-02] MEDS ORDERED: ACETAMINOPHEN 325 MG TAB PO PRN (16:45)
[2017-05-02] MEDS ORDERED: HYDROCODONE/ACETAMOPHEN 5/325MG TAB PO PRN (16:45)
[2017-05-02] MEDS ORDERED: NITROGLYCERIN 0.4 MG SL PER TAB CHARGE UT PRN (16:45)
--- NOTE | 2017-05-02 17:04 | History and Physical ---
History & Physical Date & Time of Service: May 02, 2017 at 16:27 Chief Complaint: Fall, L Hip Primary Care Physician: Harini Hanson M.D. History of Present Illness Mr. Christensen was out walking taking photographs when he hit a patch of ice and fell on his left hip and couldn't get up for about 10 minutes before being able to get to his car. He denies hitting his head. His pain was initially a 7/10 but at this point he is more like a 3/10. He felt a bit stunned after the fall but doesn't think there was any loc. He takes Eliquis for history of A.flutter diagnosed in March. He has not had an A.flutter issues since that time. 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 Past Medical/Surgical History Medical Problems: (1) Coronary Atherosclerosis Of [place] Coronary Vessel Status: Chronic (2) Diverticulosis Colon (W/O Ment Of Hemorrhage) Status: Chronic (3) Esophageal Reflux Status: Chronic (4) Hyperlipidemia Nec/Nos Status: Chronic (5) Hypertension Nos Status: Chronic (6) Palpitations Status: Chronic Surgical Problems: (1) H/O cardiac catheterization Status: Resolved Family History FH: heart disease Social History Smoking Status: Former Smoker (quit 1996) Smokeless Tobacco Use: No Alcohol Use: occasionally (1 beer per month) Drug Use: none Marital Status: Housing status: lives with significant other 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) Immunizations History of Influenza Vaccine: Yes History of Tetanus Vaccine?: No History of Pneumococcal: Yes History of Hepatitis B Vaccine: No Multi-Drug Resistant Organisms History of MDRO: No Allergies Coded Allergies: Codeine (Verified Allergy, Mild, NAUSEA, 05/02/17) Home Medications Scheduled Amlodipine (Norvasc), 5 MG PO QAM Apixaban (Eliquis), 5 MG PO BID Aspirin (Aspirin Ec), 81 MG PO DAILY Atorvastatin (Lipitor), 20 MG PO DAILY Latanoprost (Xalatan 0.005% Oph Griselda), 1 DROP OPB HS Metoprolol Tartrate (Lopressor) (Lopressor), 25 MG PO BID Multiple Vitamins W/ Minerals (Vision Formula/Lutein), 1 TAB PO QAM Omeprazole (Prilosec), 20 MG PO BID Scheduled PRN Nitroglycerin (Nitrostat), 0.4 MG UT UD PRN for Chest Pain Physical Exam Vital Signs Date Time Temp Pulse Resp B/P (MAP) Pulse Ox O2 Delivery O2 Flow Rate FiO2 05/02/17 14:43 77 18 114/76 93 Room Air 05/02/17 13:42 81 18 138/79 96 Room Air 05/02/17 13:12 88 18 137/85 97 Room Air 05/02/17 12:13 67 16 116/71 95 Room Air 05/02/17 10:26 36.8 77 18 137/91 97 Room Air Diagnostics Laboratory Results Results Past 24 Hours Test 05/02/17 11:10 Range/Units White Blood Count 6.18 4.8-10.8 K/uL Red Blood Count 4.95 4.7-6.1 M/uL Hemoglobin 15.9 14.0-18.0 g/dL Hematocrit 43.7 42-52 % Mean Corpuscular Volume 88.3 80-100 fL Mean Corpuscular Hemoglobin 32.1 25-34 pg Mean Corpuscular Hemoglobin Concent 36.4 32-36 g/dl RDW Standard Deviation 40.7 36.4-46.3 fL RDW Coefficient of Variation 12.7 11.5-14.5 % Platelet Count 219 130-400 K/uL Mean Platelet Volume 10.0 7.4-10.4 fL Sodium Level 135 136-145 mmol/L Potassium Level 4.5 3.5-5.1 mmol/L Chloride Level 102 98-107 mmol/L Carbon Dioxide Level 25 21-32 mmol/L Anion Gap 8.0 3-11 mmol/L Blood Urea Nitrogen 15 7-18 mg/dl Creatinine 0.70 0.60-1.40 mg/dl Est Creatinine Clear Calc Drug Dose 94.0 ml/min Estimated GFR () 108.5 Estimated GFR (Non- 93.6 BUN/Creatinine Ratio 22.0 10-20 Random Glucose 96 70-99 mg/dl Calcium Level 9.3 8.5-10.1 mg/dl Diagnostic Radiology L LOWER EXTREMITY WITHOUT CT DOSE: 524.45 mGy.cm HISTORY: Trauma. Pain. fall, left hip pain TECHNIQUE: Multiaxial CT images of the left hip were performed and reformatted in the sagittal and coronal plane without the use of contrast. A dose lowering technique was utilized adhering to the principles of ALARA. COMPARISON: Routine images same date FINDINGS: Generalized degenerative change throughout the left hip. Peripheral osteophytes surrounding the acetabulum as well as femoral head. No evidence for acetabular protrusion. Small osteophyte projecting from the superior aspect of the left acetabulum which appears to show a nondisplaced cortical fracture. No additional fracture of either hip or acetabulum. All remaining osseous structures show no acute abnormality. IMPRESSION: 1. Nondisplaced cortical fracture of a small superior osteophyte of the peripheral left acetabulum. 2. No additional acute bony abnormality. 3. Generalized degenerative change left hip. CT HEAD WITHOUT CONTRAST (CT) CLINICAL HISTORY: Head trauma. Patient on blood thinners. COMPARISON STUDY: No previous studies for comparison. TECHNIQUE: Axial CT of the brain is performed from the vertex to the skull base. IV contrast was not administered for this examination. A dose lowering technique was utilized adhering to the principles of ALARA. CT DOSE: 614.27 mGy.cm FINDINGS: No intra or extra-axial mass lesions are visualized. There is no CT evidence of acute cortical infarction. There is no evidence of midline shift. There is no acute hemorrhage. No calvarial fractures are visualized. There are minor white matter hypodensities likely on a small vessel basis. There is no evidence of pathologic ventricular dilatation. There is no evidence of acute sinusitis. 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 IMPRESSION: No acute intracranial findings L HIP UNILATERAL 2 VIEWS CLINICAL HISTORY: Left hip pain status post trauma COMPARISON: None. DISCUSSION: There are moderate osteoarthritic changes present. There are no acute fractures. There is no dislocation. There is an os acetabulum. IMPRESSION: Moderate osteoarthritic change. No acute fractures PELVIS 1 OR 2 VIEW ROUTINE HISTORY: 71 years-old Male fall, pain, l acute left hip pain status post fall COMPARISON: Left hip radiographs of same day TECHNIQUE: Single AP view of the pelvis FINDINGS: 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 No definite acute fracture or subluxation. No pelvic ring fracture identified. Degenerative changes are seen within the lower lumbar spine. Vascular calcifications are noted. Bones are mildly demineralized. IMPRESSION: No acute fracture or subluxation. The above report was generated using voice recognition software. It may contain grammatical, syntax or spelling errors. Impression Assessment and Plan Mr. Amparo is a 71 year old man here for fall after walking on ice. Nondisplaced cortical fracture of a small superior osteophyte of the peripheral left acetabulum following mechanical fall due to ice - admit obs med/surg until able bed becomes available at [facility] - PT/OT - pain control - morphine, hydrocodone Hx. A.flutter - continue metoprolol - patient does not have s/s of hematoma clinically or on imaging, CT of the head was negative for bleed and he did not hit his head in the fall - continue apixaban Hx CAD - continue aspirin and atorvastatin GERD - protonix Full code DVT proph - apixaban Advanced Directives Existing Advance Directive: Yes Existing Living Will: Yes Existing Power of Freight Rate Analyst: Yes () Existing Health Care Proxy: No Resuscitation Status FULL RESUSCITATION (no prolonged life support)
[2017-05-02 18:42] VITALS: BP 116/75; PULSE 83; TEMP 36.6; O2SAT 96; Ht 175.3 cm; Wt 78.0 kg
[2017-05-02] MEDS: APIXABAN 2.5 MG TAB PO SCH (19:19)
[2017-05-02] MEDS ORDERED: IV FLUIDS COMPLETED PRN (20:30)
[2017-05-02] MEDS ORDERED: LATANOPROST 0.005% OP SOLN 2.5 ML BTL OPB SCH (21:00)
[2017-05-02 21:12] VITALS: BP 109/69; PULSE 70
[2017-05-02] MEDS: PANTOprazole SOD 40 MG TAB PO SCH (21:13)
[2017-05-02] MEDS: METOPROLOL TARTRATE 25 MG TAB PO SCH (21:14)
[2017-05-02 23:16] VITALS: BP 109/66; PULSE 69; TEMP 36.6; O2SAT 96
[2017-05-03 07:18] VITALS: BP 106/66; PULSE 72; TEMP 36.7; O2SAT 93
[2017-05-03] MEDS: PANTOprazole SOD 40 MG TAB PO SCH (08:42)
[2017-05-03] MEDS: APIXABAN 2.5 MG TAB PO SCH (08:42)
[2017-05-03] MEDS: METOPROLOL TARTRATE 25 MG TAB PO SCH (08:42)
[2017-05-03] MEDS ORDERED: CEROVITE ADV FORMULA TAB PO SCH (09:00)
[2017-05-03] MEDS ORDERED: AMLODIPINE BESYLATE 5 MG TAB PO SCH (09:00)
[2017-05-03] MEDS ORDERED: ASPIRIN 81 MG ECTAB PO SCH (09:00)
[2017-05-03] MEDS ORDERED: ATORVASTATIN 20 MG TAB PO SCH (09:00)
[2017-05-03] MEDS ORDERED: HYDR-5688 PO (12:59)
--- NOTE | 2017-05-03 13:10 | Discharge Instructions ---
Discharge Instructions Date of Service May 03, 2017. Admission Reason for Admission: Fall Due To Ice Or Snow Discharge Discharge Diagnosis / Problem: Left hip fracture Discharge Goals Goal(s): Decrease discomfort, Improve function, Increase independence, Improve disease control, Learn about illness, Diagnostic testing, Therapeutic intervention, Prevent Disease Progression Activity Recommendations Activity Limitations: resume your previous activity . Instructions / Follow-Up Instructions / Follow-Up Pain control: [place] 1 tablet every 4 hours as needed for pain management Tylenol 650 mg every 4 hours as needed for pain management- do not exceed more than 4,000 mg per day Resume all other regular home medications as prescribed FOLLOW-UPS: Please follow-up with your PCP within 5-7 days Please follow-up with Orthopedics within 1 month Please follow-up/keep all of your subspecialty appointments Current Hospital Diet Patient's current hospital diet: Regular Diet Discharge Diet Recommended Diet: Regular Diet Pending Studies Studies pending at discharge: no Laboratory Results Hemoglobin A1c Test 03/25/17 08:00 Range/Units Estimated Average Glucose 117 mg/dl Hemoglobin A1c 5.7 H 4.5-5.6 % Lipid Panel Test 03/26/17 05:24 Range/Units Triglycerides Level 178 H 0-150 mg/dl Cholesterol Level 161 0-200 mg/dl HDL Cholesterol 33 mg/dl Cholesterol/HDL Ratio 4.9 LDL Cholesterol, Calculated 92 mg/dl Medical Emergencies . Who to Call and When: Medical Emergencies: If at any time you feel your situation is an emergency, please call 911 immediately. . Non-Emergent Contact Non-Emergency issues call your: Primary Care Provider, Specialist (Orthopedics ) Call Non-Emergent contact if: you have a fever, your pain is not controlled, your pain is worsening, your pain is unusual for you, your pain is concerning you, you have any medication questions . . "Provider Documentation" section prepared by Hue Villarreal. . VTE Core Measure Inpt VTE Proph given/why not?: Kishor Renteria, SCD's
--- NOTE | 2017-05-03 13:24 | Discharge Summary ---
Discharge Summary Date of Service May 03, 2017. Discharge Summary Admission Date: May 02, 2017 at 16:22 Discharge Date: May 03, 2017 Discharge Disposition: Home with services Principal Diagnosis: L hip fracture Problems/Secondary Diagnoses: Nondisplaced cortical fracture of a small superior osteophyte of the peripheral left acetabulum following mechanical fall due to ice h/o a.flutter CAD GERD Immunizations: Have You Had Influenza Vaccine: Yes History of Tetanus Vaccine?: No History of Pneumococcal: Yes History of Hepatitis B Vaccine: No Procedures: PELVIS 1 OR 2 VIEW ROUTINE HISTORY: 71 years-old Male fall, pain, l acute left hip pain status post fall COMPARISON: Left hip radiographs of same day TECHNIQUE: Single AP view of the pelvis FINDINGS: 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 No definite acute fracture or subluxation. No pelvic ring fracture identified. Degenerative changes are seen within the lower lumbar spine. Vascular calcifications are noted. Bones are mildly demineralized. IMPRESSION: No acute fracture or subluxation. The above report was generated using voice recognition software. It may contain grammatical, syntax or spelling errors. Electronically signed by: Tray Araujo M.D. 05/02/2017 11:56 AM Dictated Date/Time: 05/02/2017 11:54 AM The status of this report is Signed. Draft = Not yet reviewed or approved by Radiologist. Signed = Reviewed and approved by Radiologist. L HIP UNILATERAL 2 VIEWS CLINICAL HISTORY: Left hip pain status post trauma COMPARISON: None. DISCUSSION: There are moderate osteoarthritic changes present. There are no acute fractures. There is no dislocation. There is an os acetabulum. IMPRESSION: Moderate osteoarthritic change. No acute fractures Electronically signed by: Mikey Shaikh M.D. 05/02/2017 11:53 AM Dictated Date/Time: 05/02/2017 11:53 AM The status of this report is Signed. Draft = Not yet reviewed or approved by Radiologist. Signed = Reviewed and approved by Radiologist. CT HEAD WITHOUT CONTRAST (CT) CLINICAL HISTORY: Head trauma. Patient on blood thinners. COMPARISON STUDY: No previous studies for comparison. TECHNIQUE: Axial CT of the brain is performed from the vertex to the skull base. IV contrast was not administered for this examination. A dose lowering technique was utilized adhering to the principles of ALARA. CT DOSE: 614.27 mGy.cm FINDINGS: No intra or extra-axial mass lesions are visualized. There is no CT evidence of acute cortical infarction. There is no evidence of midline shift. There is no acute hemorrhage. No calvarial fractures are visualized. There are minor white matter hypodensities likely on a small vessel basis. There is no evidence of pathologic ventricular dilatation. There is no evidence of acute sinusitis. 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 IMPRESSION: No acute intracranial findings Electronically signed by: Mikey Shaikh M.D. 05/02/2017 11:30 AM Dictated Date/Time: 05/02/2017 11:24 AM The status of this report is Signed. Draft = Not yet reviewed or approved by Radiologist. Signed = Reviewed and approved by Radiologist. L LOWER EXTREMITY WITHOUT CT DOSE: 524.45 mGy.cm HISTORY: Trauma. Pain. fall, left hip pain TECHNIQUE: Multiaxial CT images of the left hip were performed and reformatted in the sagittal and coronal plane without the use of contrast. A dose lowering technique was utilized adhering to the principles of ALARA. COMPARISON: Routine images same date FINDINGS: Generalized degenerative change throughout the left hip. Peripheral osteophytes surrounding the acetabulum as well as femoral head. No evidence for acetabular protrusion. Small osteophyte projecting from the superior aspect of the left acetabulum which appears to show a nondisplaced cortical fracture. No additional fracture of either hip or acetabulum. All remaining osseous structures show no acute abnormality. IMPRESSION: 1. Nondisplaced cortical fracture of a small superior osteophyte of the peripheral left acetabulum. 2. No additional acute bony abnormality. 3. Generalized degenerative change left hip. The above report was generated using voice recognition software. It may contain grammatical, syntax or spelling errors. Electronically signed by: Yemi Garcias M.D. 05/02/2017 12:36 PM Dictated Date/Time: 05/02/2017 12:31 PM The status of this report is Signed. Draft = Not yet reviewed or approved by Radiologist. Signed = Reviewed and approved by Radiologist. Medication Reconciliation New Medications: Hydrocodone/Acetaminophen 5MG/325MG ([place] 5MG/325MG) Tab 1 TAB PO Q4H PRN for Pain for 3 Days, #18 TAB PRN PAIN Continued Medications: Amlodipine (Norvasc) 5 Mg Tab 5 MG PO QAM, TAB Apixaban (Eliquis) 5 Mg Tab 5 MG PO BID, TAB Aspirin (Aspirin Ec) 81 Mg Tab 81 MG PO DAILY Atorvastatin (Lipitor) 20 Mg Tab 20 MG PO DAILY, TAB Latanoprost (Xalatan 0.005% Oph Griselda) 0.005 % Griselda 1 DROP OPB HS Metoprolol Tartrate (Lopressor) (Lopressor) 25 Mg Tab 25 MG PO BID, TAB Multiple Vitamins W/ Minerals (Vision Formula/Lutein) 1 Tab Tab 1 TAB PO QAM Nitroglycerin (Nitrostat) 0.4 Mg Sub 0.4 MG UT UD PRN for Chest Pain, BTL Omeprazole (Prilosec) 20 Mg Capcr 20 MG PO BID Referrals At Discharge Follow up Referrals: Family Practice Referral - Within 1-2 Weeks with Harini Hanson M.D. Orthopedics Referral - Within a Month with Rios Herbert P.A. Discharge Exam Review of Systems: Constitutional: No fever, No chills, No sweats, No weakness, No fatigue Eyes: No worsening of vision ENT: No hearing loss Respiratory: No cough, No shortness of breath, No hemoptysis Cardiovascular: No chest pain, No edema, No palpitations Abdomen: No pain, No nausea, No vomiting, No diarrhea, No constipation Musculoskeletal: + joint pain, + muscle pain, No swelling, No calf pain Genitourinary - Male: No hematuria, No dysuria Neurologic: No weakness, No numbness/tingling Psychiatric: No depression symptoms, No anxiety Endocrine: No fatigue Hematologic / Lymphatic: No abnormal bleeding/bruising Integumentary: No rash, No itch, No new/changing skin lesions Physical Exam: General Appearance: no apparent distress Eyes: normal inspection, PERRL ENT: hearing grossly normal Neck: supple Respiratory/Chest: lungs clear, no respiratory distress, no accessory muscle use Cardiovascular: regular rate, rhythm Abdomen / GI: normal bowel sounds, non tender, soft Extremities: no calf tenderness, no pedal edema Neurologic/Psychiatric: no motor/sensory deficits, alert, normal mood/affect , oriented x 3 Skin: normal color, warm/dry, no rash Hospital Course Mr. Christensen is a 71 year old man here for fall after walking on ice. Nondisplaced cortical fracture of a small superior osteophyte of the peripheral left acetabulum following mechanical fall due to ice: - Admit to med/surg - PT/OT- recommend return home w/ services - Pain control w/ [place] 1 tablet q4 hr PRN and Morphine IV PRN - ED discussed case w/ Rios Herbert PA-C- non surgical, weightbearing as tolerated- asked CM to setup outpatient ortho f/u h/o a.flutter, CAD: Continue Metoprolol, Apixaban, ASA, Lipitor GERD: Protonix DVT prophylaxis: Apixaban Code Status: LEVEL I, FULL Dispo: Discharge to home w/ [facility] Supervising Note Dr. Her I performed a history and physical examination on the patient. I reviewed above note and agree with it. I discussed plan with APC and patient. During my face to face encounter with the patient, I answered all of the patient's questions. Total Time Spent: Greater than 30 minutes This includes examination of the patient, discharge planning, medication reconciliation, and communication with other providers. Discharge Instructions Please refer to the electronic Patient Visit Report (Discharge Instructions) for additional information. Follow-Up Please follow-up with your PCP within 5-7 days Please follow-up with Orthopedics within 1 month Please follow-up/keep all of your subspecialty appointments Additional Copies To Harini Hanson M.D.
[2017-05-03 13:58] VITALS: BP 106/66; PULSE 72; TEMP 36.7; O2SAT 93
== END 2017-05-03 16:20 | disposition home health service (06) ==
LOC: C.EDB 10:11 → C.3E 16:22 → ENRESERV 17:09
PROVIDERS: ADMIT Internal Medicine; ATTEND Internal Medicine
DX: S32.492A Other specified fracture of left acetabulum, initial encounter for closed fracture (principal); W00.9XXA Unspecified fall due to ice and snow, initial encounter; I25.10 Atherosclerotic heart disease of native coronary artery without angina pectoris; K21.9 Gastro-esophageal reflux disease without esophagitis; E78.5 Hyperlipidemia, unspecified; I10 Essential (primary) hypertension; Z87.891 Personal history of nicotine dependence; Z79.899 Other long term (current) drug therapy; Z88.5 Allergy status to narcotic agent; Z82.49 Family history of ischemic heart disease and other diseases of the circulatory system

== ENCOUNTER 2019-12-31 21:34 | Observation (INO) ==
[2019-12-31] MEDS ORDERED: NITROGLYCERIN SL 0.4 MG/TAB TAB SL STA (21:47)
[2019-12-31] MEDS ORDERED: NITROGLYCERIN 2% OINTMENT 30GM TUBE EXT ONE (22:47)
[2019-12-31 23:01] LABS: Basophils # (auto) 0.03 K/uL (0-0.2); Basophils % (auto) 0.4 %; Eosinophils # (auto) 0.12 K/uL (0-0.5); Eosinophils % (auto) 1.5 %; Hematocrit (blood only) 41.6 % (42-52); Hemoglobin 14.4 g/dL (14.0-18.0); Immature Granulocytes # (auto) 0.02 K/uL (0.00-0.02); Immature Granulocytes % (auto) 0.2 %; Lymphocytes % (auto) 15.9 %; Mean Corpuscular Hemoglobin 30.9 pg (25-34); Mean Corpuscular Hgb Conc 34.6 g/dL (32-36); Mean Corpuscular Volume 89.3 fL (80-100); Mean Platelet Volume 9.3 fL (7.4-10.4); Monocytes # (auto) 1.01 K/uL (0.11-0.59); Monocytes % (auto) 12.3 %; Neutrophils # (auto) 5.71 K/uL (1.4-6.5); Neutrophils % (auto) 69.7 %; Platelet Count 187 K/uL (130-400); RDW Coefficient of Variation 12.6 % (11.5-14.5); RDW Standard Deviation 40.6 fL (36.4-46.3); Red Blood Count 4.66 M/uL (4.7-6.1); White Blood Count 8.19 K/uL (4.8-10.8)
[2019-12-31 23:18] LABS: INR 1.1 (0.9-1.1); Partial Thromboplastin Time 28.8 Seconds (21.0-31.0)
[2019-12-31 23:19] LABS: Alanine Aminotransferase 141 U/L (12-78); Albumin Level 3.2 gm/dl (3.4-5.0); Aspartate Aminotransferase 145 U/L (15-37); BUN Creatinine Ratio 16.3 (10-20); Blood Urea Nitrogen 13 mg/dl (7-18); Calcium 8.8 mg/dl (8.5-10.1); Carbon Dioxide 22 mmol/L (21-32); Chloride 108 mmol/L (98-107); Est GFR (African American) 101.1; Est GFR (Non-African American) 87.2; Glucose 164 mg/dl (70-99); Lipase 230 U/L (73-393); Potassium 4.1 mmol/L (3.5-5.1); Sodium 139 mmol/L (136-145)
[2019-12-31 23:23] LABS: Albumin Globulin Ratio 0.8 (0.9-2); Alkaline Phosphatase 114 U/L (45-117); Bilirubin,Total 0.6 mg/dl (0.2-1); Globulin 3.8 gm/dl (2.5-4.0); Troponin I < 0.015 ng/ml (0-0.045)
--- NOTE | 2019-12-31 23:28 | Emergency Department Note ---
History of Present Illness General Chief Complaint: Chest Pain Stated Complaint: CHEST PAIN History of Present Illness Maximum Pain Intensity: 10 This 74-year-old presents to the ER complaining of chest pain Location: Chest pain Quality: Pressure Severity: Moderate Duration: Today Timing: Started around 9 PM Context: Patient was concerned and came in Modifying factors: better with nitroglycerin; worse with nothing No prior heart attack. Patient denies exertional chest pain, dyspnea, abdominal pain, nausea, vomiting, diarrhea, radiating pain. Home Medications Home Medications Medication Instructions Recorded Confirmed Type amlodipine 5 mg PO QAM 11/13/18 12/31/19 History apixaban 5 mg PO BID 11/13/18 12/31/19 History atorvastatin 20 mg PO QAM 11/13/18 12/31/19 History cholecalciferol (vitamin D3) 1,000 unit PO QPM 11/13/18 12/31/19 History [Vitamin D3] cyanocobalamin (vitamin B-12) 500 mcg PO BID 11/13/18 12/31/19 History [Vitamin B-12] latanoprost 1 drp OPHTHALMIC (EYE) QPM 11/13/18 12/31/19 History metoprolol succinate 25 mg PO BID 11/13/18 12/31/19 History aspirin [Aspir-81] 81 mg PO QPM 04/22/19 12/31/19 History nitroglycerin [Nitrostat] 0.4 mg SUBLINGUAL DIRECTED PRN 09/14/19 12/31/19 History Calcium 600 + D(3) 1 cap PO BID 09/29/19 12/31/19 History dorzolamide (PF) 1 drp OPHTHALMIC (EYE) TID 09/29/19 12/31/19 History pantoprazole 20 mg PO BID 12/31/19 12/31/19 History vitamins A,C,[id number]-uacy-yhuoyn 1 tab PO DAILY 12/31/19 12/31/19 History [PreserVision AREDS] Allergies Allergy/AdvReac Type Severity Reaction Status Date / Time codeine AdvReac Mild NAUSEA Verified 12/31/19 23:00 Past Med/Surg History Medical History Anxiety Atrial flutter ELIQUIS BID Depression Fall due to ice or snow GERD (gastroesophageal reflux disease) Glaucoma AND MACULAR DEGENERATION Hiatal hernia Hyperlipidemia Leg pain, anterior Surgical History H/O cardiac catheterization X MULTIPLE-LAST ONE COUPLE YRS-[facility]-NO STENTS History of colonoscopy History of herniorrhaphy X 2 Social History Smoking Status: Former smoker Second Hand Exposure: Yes (ON OCC-NOT CURRENTLY); Hx Alcohol Use: Yes Alcohol type: beer Hx Substance Use: No Preferred Language: Wolof Communication Ability: Effective Visual Impairment: Limited Hearing Ability: Normal Route Clerk Required: No Beliefs That Will Affect Care: None marital status: Current Living Situation: Spouse Feels Safe at Home: Yes Review of Systems A total of 10 systems reviewed and were otherwise negative Physical Exam Vital Signs Vital Signs - 24 hr 12/31/19 21:36 12/31/19 22:13 12/31/19 22:57 Temperature 36.7 C Temperature Source Oral Pulse Rate 114 H 83 Pulse Rate [Left Radial] 83 Pulse Rate from SpO2 Sensor 82 Pulse Rhythm [Left Radial] Regular Pulse Strength [Left Radial] Normal Respiratory Rate 12 23 Respiratory Effort / Characteristics Non-Labored Spontaneous Non-Labored Respiratory Depth Normal Normal Respiratory Pattern Regular Regular Blood Pressure 152/91 H 117/77 Blood Pressure [Left Arm] 117/77 Blood Pressure Mean 111 91 Blood Pressure Mean [Left Arm] 90 Blood Pressure Position [Left Arm] Lying Pulse Oximetry 96 95 94 Oxygen Delivery Method Room Air Room Air Room Air Sepsis Recent Fever Within 48 Hours No Sepsis New/Unexplained Change in Mental Status N/A Sepsis Action Taken by Nursing No Action Required 12/31/19 23:50 Temperature Temperature Source Pulse Rate 76 Pulse Rate [Left Radial] Pulse Rate from SpO2 Sensor 73 Pulse Rhythm [Left Radial] Pulse Strength [Left Radial] Respiratory Rate Respiratory Effort / Characteristics Respiratory Depth Respiratory Pattern Blood Pressure 135/78 Blood Pressure [Left Arm] Blood Pressure Mean 96 Blood Pressure Mean [Left Arm] Blood Pressure Position [Left Arm] Pulse Oximetry 95 Oxygen Delivery Method Sepsis Recent Fever Within 48 Hours Sepsis New/Unexplained Change in Mental Status Sepsis Action Taken by Nursing VITALS: Vitals are noted on the nurse's note and reviewed by myself. Vital signs stable. GENERAL: Pleasant elderly male, in no acute distress, nondiaphoretic, well- developed well-nourished. SKIN: Capillary reflex less than 2 seconds. HEENT: Normocephalic. PERRLA. EOMI. Nares patent. Mucous membranes moist. Neck is supple without nuchal rigidity. HEART: Regular rate and rhythm LUNGS: Clear to auscultation bilaterally without wheezes, rales or rhonchi. No retractions or accessory muscle use. ABDOMEN: Positive bowel sounds x 4. Normal tympanic percussion. Soft, nontender, without masses or organomegaly. Weeks sign negative. No guarding or rebound tenderness. MUSCULOSKELETAL: No gross musculoskeletal defects. NEURO: Patient was alert and oriented to person place and time. No focal neurological deficits. Course Administered Medications Discontinued Medications Nitroglycerin (Nitroglycerin Sl 0.4 Mg/Tab Tab) 0.4 mg SL NOW STA Stop: 12/31/19 21:48 Last Admin: 12/31/19 22:22 Dose: 0.4 mg Documented by: [id number] Nitroglycerin (Nitroglycerin 2% Ointment 30gm Tube) 0.5 inch EXT NOW ONE Stop: 12/31/19 22:48 Last Admin: 12/31/19 22:59 Dose: 0.5 inch Documented by: [id number] Medical Decision Making Medical Records Attestation: I reviewed the patient's medical records. Home Medications Current Medication List: was personally reviewed by me Laboratory Data Attestation: I reviewed the patient's lab results. Result diagrams: 12/31/19 22:49 12/31/19 22:49 Labs: Lab Results 12/31/19 12/31/19 12/31/19 Range/Units 22:13 22:13 22:13 WBC Cancelled RBC Cancelled Hgb Cancelled Hct Cancelled MCV Cancelled MCH Cancelled MCHC Cancelled RDW Std Deviation Cancelled RDW Coeff of Arlin Cancelled Plt Count Cancelled MPV Cancelled Immature Gran % (Auto) Cancelled Neut % (Auto) Cancelled Lymph % (Auto) Cancelled [place] % (Auto) Cancelled Eos % (Auto) Cancelled Baso % (Auto) Cancelled Neut # (Auto) Cancelled Lymph # (Auto) Cancelled [place] # (Auto) Cancelled Eos # (Auto) Cancelled Baso # (Auto) Cancelled Immature Gran # (Auto) Cancelled Absolute Nucleated RBC Cancelled Nucleated RBC % (auto) Cancelled Neutrophils % (Manual) Cancelled Band Neutrophils % Cancelled Lymphocytes % (Manual) Cancelled Prolymphocyte % Cancelled Reactive Lymphs % (Man) Cancelled Monocytes % (Manual) Cancelled Eosinophils % (Manual) Cancelled Basophils % (Manual) Cancelled Metamyelocytes % (Man) Cancelled Myelocytes % (Man) Cancelled Promyelocytes % (Man) Cancelled Blast Cells % (Manual) Cancelled Plasma Cell % (Manual) Cancelled Other Cells % Cancelled Nucleated RBC % Cancelled Neutrophils # (Manual) Cancelled Band Neutrophils # Cancelled Total Absolute Neuts Cancelled Lymphocytes # (Manual) Cancelled Prolymphocyte # Cancelled Reactive Lymphs # Cancelled Total Abs Lymphocytes Cancelled Monocytes # (Manual) Cancelled Eosinophils # (Manual) Cancelled Basophils # (Manual) Cancelled Metamyelocytes # (Man) Cancelled Myelocytes # (Manual) Cancelled Promyelocytes # (Man) Cancelled Blast Cells # (Man) Cancelled Plasma Cell # (Manual) Cancelled Other Cells # Cancelled Nucleated RBCs # (Man) Cancelled Hypersegmented Neuts Cancelled Hyposegmented Neuts Cancelled Hypogranular Neuts Cancelled Large Granular Lymphs Cancelled # Lrg Granular Lymphs Cancelled Hairy Cells Cancelled Smudge Cells Cancelled Toxic Granulation Cancelled Toxic Vacuolation Cancelled Dohle Bodies Cancelled Lanny Rods Cancelled Platelet Estimate Cancelled Hypogranular Platelets Cancelled Clumped Platelets Cancelled Giant Platelets Cancelled Platelet Satelliting Cancelled RBC Morphology Cancelled Polychromasia Cancelled Hypochromasia Cancelled Poikilocytosis Cancelled Basophilic Stippling Cancelled Anisocytosis Cancelled Microcytosis Cancelled Macrocytosis Cancelled Spherocytes Cancelled Pappenheimer Bodies Cancelled Sickle Cells Cancelled Target Cells Cancelled Tear Drop Cells Cancelled Ovalocytes Cancelled Stomatocytes Cancelled Garza-Coleman Bodies Cancelled Echinocytes Cancelled Acanthocytes (Spur) Cancelled Rouleaux Cancelled RBC Agglutinates Cancelled Schistocytes Cancelled RBC Morph Comment Cancelled Sezary Cell Cancelled PT Cancelled INR Cancelled APTT Cancelled PTT Ratio Cancelled Sodium Cancelled Potassium Cancelled Chloride Cancelled Carbon Dioxide Cancelled Anion Gap Cancelled BUN Cancelled Creatinine Cancelled Est Cr Clr Drug Dosing Cancelled Est GFR ( Amer) Cancelled Est GFR (Non-Af Amer) Cancelled BUN/Creatinine Ratio Cancelled Glucose Cancelled Calcium Cancelled Total Bilirubin Cancelled AST Cancelled ALT Cancelled Alkaline Phosphatase Cancelled Troponin I Cancelled Total Protein Cancelled Albumin Cancelled Globulin Cancelled Albumin/Globulin Ratio Cancelled Lipase Cancelled 12/31/19 12/31/19 12/31/19 Range/Units 22:49 22:49 22:49 WBC 8.19 RBC 4.66 L Hgb 14.4 Hct 41.6 L MCV 89.3 MCH 30.9 MCHC 34.6 RDW Std Deviation 40.6 RDW Coeff of Arlin 12.6 Plt Count 187 MPV 9.3 Immature Gran % (Auto) 0.2 Neut % (Auto) 69.7 Lymph % (Auto) 15.9 [place] % (Auto) 12.3 Eos % (Auto) 1.5 Baso % (Auto) 0.4 Neut # (Auto) 5.71 Lymph # (Auto) 1.30 [place] # (Auto) 1.01 H Eos # (Auto) 0.12 Baso # (Auto) 0.03 Immature Gran # (Auto) 0.02 Absolute Nucleated RBC Nucleated RBC % (auto) Neutrophils % (Manual) Band Neutrophils % Lymphocytes % (Manual) Prolymphocyte % Reactive Lymphs % (Man) Monocytes % (Manual) Eosinophils % (Manual) Basophils % (Manual) Metamyelocytes % (Man) Myelocytes % (Man) Promyelocytes % (Man) Blast Cells % (Manual) Plasma Cell % (Manual) Other Cells % Nucleated RBC % Neutrophils # (Manual) Band Neutrophils # Total Absolute Neuts Lymphocytes # (Manual) Prolymphocyte # Reactive Lymphs # Total Abs Lymphocytes Monocytes # (Manual) Eosinophils # (Manual) Basophils # (Manual) Metamyelocytes # (Man) Myelocytes # (Manual) Promyelocytes # (Man) Blast Cells # (Man) Plasma Cell # (Manual) Other Cells # Nucleated RBCs # (Man) Hypersegmented Neuts Hyposegmented Neuts Hypogranular Neuts Large Granular Lymphs # Lrg Granular Lymphs Hairy Cells Smudge Cells Toxic Granulation Toxic Vacuolation Dohle Bodies Lanny Rods Platelet Estimate Hypogranular Platelets Clumped Platelets Giant Platelets Platelet Satelliting RBC Morphology Polychromasia Hypochromasia Poikilocytosis Basophilic Stippling Anisocytosis Microcytosis Macrocytosis Spherocytes Pappenheimer Bodies Sickle Cells Target Cells Tear Drop Cells Ovalocytes Stomatocytes Garza-Coleman Bodies Echinocytes Acanthocytes (Spur) Rouleaux RBC Agglutinates Schistocytes RBC Morph Comment Sezary Cell PT 12.0 INR 1.1 APTT 28.8 PTT Ratio 1.0 Sodium 139 Potassium 4.1 Chloride 108 H Carbon Dioxide 22 Anion Gap 9.0 BUN 13 Creatinine 0.79 Est Cr Clr Drug Dosing 86.0 Est GFR ( Amer) 101.1 Est GFR (Non-Af Amer) 87.2 BUN/Creatinine Ratio 16.3 Glucose 164 H Calcium 8.8 Total Bilirubin 0.6 AST 145 H ALT 141 H Alkaline Phosphatase 114 Troponin I < 0.015 Total Protein 7.0 Albumin 3.2 L Globulin 3.8 Albumin/Globulin Ratio 0.8 L Lipase 230 Blood Pressure Blood Pressure Findings: Normal blood pressure MDM Narrative Prior records/ancillary studies reviewed. Triage Nursing notes reviewed. Additional history obtained from family. The patient's history was concerning for chest pain. Differential diagnosis: Etiologies such as cardiac ischemia, aortic dissection, pulmonary embolism, pneumonia, pneumothorax, musculoskeletal, infections, pericarditis, myocarditis, esophageal rupture, gastrointestinal, as well as others were entertained. Physical examination: As above. ER treatment provided: An order was placed for continuous cardiac monitoring. The monitor shows a rate of 60-100 with a sinus rhythm. Nitroglycerin On reassessment the patient felt better. Diagnostic interpretation by me: #1: The electrocardiogram was normal sinus, normal intervals, minimal ST depression in the lateral leads, rate of 91. EKG compared to prior EKG: Impression normal sinus rhythm with new ST depressions in the lateral leads interpreted by myself EKG ordered for chest pain I think arrhythmia is unlikely. EKG shows normal sinus rhythm with no interval abnormalities such as QT prolongation or WPW. There are no findings to suggest Brugada syndrome. Cardiac monitoring in the emergency department reveals no tachycardic or bradycardic dysrhythmia. Hypertrophic cardiomyopathy was considered but there are no clear historical elements pointing toward this. EKG is not suggestive. The QRS voltage is not extremely large and there are no suggestive Q waves. #2:The electrocardiogram was normal sinus, normal intervals, minimal ST depression in the lateral leads, rate of 91. Impression normal sinus rhythm with new ST depressions in the lateral leads interpreted by myself unchanged from the first 1 done 30 minutes ago EKG ordered for chest pain I think arrhythmia is unlikely. EKG shows normal sinus rhythm with no interval abnormalities such as QT prolongation or WPW. There are no findings to suggest Brugada syndrome. Cardiac monitoring in the emergency department reveals no tachycardic or bradycardic dysrhythmia. Hypertrophic cardiomyopathy was considered but there are no clear historical elements pointing toward this. EKG is not suggestive. The QRS voltage is not extremely large and there are no suggestive Q waves. The labs revealed negative troponin Elevated LFTs, normal coags Imaging studies: Chest x-ray with calcified plaques similar to prior, no acute consolidation, pneumothorax or free air per my interpretation HEART SCORE: Hx: high/mod/low suspicion: 1 ECG: ST depression/nonspecific changes/normal: 1 Age: Greater than 65/45-64/less than 45: 2 Risk factors: (Hypertension, hyperlipidemia, diabetes, coronary disease, tobacco use, cocaine use): 2 Troponin: Greater than 2 times normal limits/1-2 times normal limits/normal: 0 Total: 6 Consultation: A consultation was placed with Dr. Ryan hospitalist. The case was discussed and diagnostics were reviewed. The patient was evaluated in the ER for further treatment. Exam and history seem consistent with chest pains with concerns for cardiac in etiology. Patient was pain-free after nitroglycerin. Repeat EKG is unchanged. He does have new changes. Medicine was consulted. He will be evaluated for admission. First troponin is negative. He is only had symptoms for 2 hours. By the evaluation outlined above emergent etiologies such as aortic dissection, pulmonary embolism, pneumonia, pneumothorax, infections, pericarditis, myocarditis, gastrointestinal, as well as others were deemed relatively un likely. The pt informed about the findings as listed above. All questions were answered and pleased with the treatment. The chart was completed utilizing [employer] Speech voice recognition software. Grammatical errors, random word insertions, pronoun errors, and incomplete sentences are an occassional consequence of this system due to software limitations, ambient noise, and hardware issues. Any formal questions or concerns about the content, text, or information contained within the body of this dictation should be directly addressed to the physician rehabilitation assistant for clarification. Impression & Plan Chest pain Discharge Plan Visit Data Chief Complaint: Chest Pain Stated Complaint: CHEST PAIN ED Provider: Farooq Corrales ED Midlevel Provider: Kay Worthy Discharge Problem: Chest pain Patient Disposition: Being Evaluated by Hospitalist Condition: Fair Forms Stand Alone Forms: My [facility] Prescriptions Prescriptions: No Action latanoprost 0.005 % Drops 1 drp OPHTHALMIC (EYE) QPM RF: 0 atorvastatin 40 mg Tablet 20 mg PO QAM RF: 0 metoprolol succinate 50 mg Tablet Extended Release 24 Hr 25 mg PO BID RF: 0 cyanocobalamin (vitamin B-12) [Vitamin B-12] 1,000 mcg Tablet 500 mcg PO BID RF: 0 amlodipine 5 mg Tablet 5 mg PO QAM RF: 0 cholecalciferol (vitamin D3) [Vitamin D3] 1,000 unit Capsule 1,000 unit PO QPM RF: 0 apixaban 5 mg Tablet 5 mg PO BID RF: 0 nitroglycerin [Nitrostat] 0.4 mg Tablet, Sublingual 0.4 mg sublingual DIRECTED PRN (Reason: Chest Pain) RF: 0 pantoprazole 20 mg Tablet,Delayed Release (Dr/Ec) 20 mg PO BID RF: 0 PreserVision AREDS [id number] Tablet 1 tab PO DAILY RF: 0 aspirin [Aspir-81] 81 mg Tablet,Delayed Release (Dr/Ec) 81 mg PO QPM RF: 0 dorzolamide (PF) 2 % Drops 1 drp OPHTHALMIC (EYE) TID RF: 0 Calcium 600 + D(3) 600 mg calcium- 200 unit Capsule 1 cap PO BID RF: 0 Referrals Referrals: Harini Tristan PA-C [Primary Care Provider] - Discharge Problem: Chest pain Qualifiers: Chest pain type: unspecified Qualified Code(s): R07.9 - Chest pain, unspecified
--- NOTE | 2020-01-01 01:07 | History & Physical Report ---
Date of Service January 01, 2020 Assessment & Plan (1) Atrial flutter: (2) Hyperlipidemia: (3) Unspecified essential hypertension: (4) Gastritis: (5) Hiatal hernia: (6) Chest pain: (7) Esophagitis: History of Present Illness Chief Complaint: Chest Pain Primary Care Provider: Harini Tristan PA-C Alessandro Christensen is a 74 year old man with a past medical history significant for Atrial Flutter, Hiatal Hernia, GERD, absestosis, and non obstructive coronary artery disease with anginal chest pain who presents from home with severe chest pain. Chest pain is located directly centrally on his chest, does not radiate. Tonight around 9:30 pm it struck him quite severely it became so severe he thought he might vomit or pass out from pain. He tried to get up and walk it out which has helped in the past but it did not relieve it. He took some nitroglycerin which he feels may have helped eventually. Here in the ED he currently endorses no pain and feels in his usual state of health. He does tell me that this pain has been present for some time, multiple weeks. He does not feel that anything necessarily makes it better or worse, but he notices it most when he is sitting in his lazy boy after supper. He has been active, he walks a half mile to the local [employer] and back quite regularly. He sometimes notices that he has this discomfort while he does this walk but it's never enough to stop him from doing what he's doing. Pain does not seem to be reproducible with deep breaths or movements. Patient with history of GERD and asbestosis and he attributes this discomfort to GI related pain. He is on pantoprazole 20 mg and feels his GERD is not well controlled. Has had an EGD which did not show any ulcers, or suspicious lesions. [facility]. Occasional drinker, non smoker, no drug use. Lives with . Full Code Allergies Allergy/AdvReac Type Severity Reaction Status Date / Time codeine AdvReac Mild NAUSEA Verified 12/31/19 23:00 Home Medications Home Medications Medication Instructions Recorded Confirmed Type amlodipine 5 mg PO QAM 11/13/18 12/31/19 History apixaban 5 mg PO BID 11/13/18 12/31/19 History atorvastatin 20 mg PO QAM 11/13/18 12/31/19 History cholecalciferol (vitamin D3) 1,000 unit PO QPM 11/13/18 12/31/19 History [Vitamin D3] cyanocobalamin (vitamin B-12) 500 mcg PO BID 11/13/18 12/31/19 History [Vitamin B-12] latanoprost 1 drp OPHTHALMIC (EYE) QPM 11/13/18 12/31/19 History metoprolol succinate 25 mg PO BID 11/13/18 12/31/19 History aspirin [Aspir-81] 81 mg PO QPM 04/22/19 12/31/19 History nitroglycerin [Nitrostat] 0.4 mg SUBLINGUAL DIRECTED PRN 09/14/19 12/31/19 History Calcium 600 + D(3) 1 cap PO BID 09/29/19 12/31/19 History dorzolamide (PF) 1 drp OPHTHALMIC (EYE) TID 09/29/19 12/31/19 History PreserVision AREDS 1 tab PO DAILY 12/31/19 12/31/19 History pantoprazole 20 mg PO BID 12/31/19 12/31/19 History Past Med/Surg History Medical History (Updated 01/01/20 @ 14:17 by Tushar Grier) Anxiety Atrial flutter ELIQUIS BID Depression Fall due to ice or snow GERD (gastroesophageal reflux disease) Glaucoma AND MACULAR DEGENERATION Hiatal hernia Hyperlipidemia Leg pain, anterior Surgical History (Updated 01/02/20 @ 00:02 by Mamadou Colby) H/O cardiac catheterization X MULTIPLE-LAST ONE COUPLE YRS-[facility]NO STENTS History of colonoscopy History of herniorrhaphy X 2 Social History Smoking Status: Never smoker Second Hand Exposure: Yes (ON OCC-NOT CURRENTLY); Hx Alcohol Use: Yes Alcohol type: beer Hx Substance Use: No Preferred Language: Arabic Communication Ability: Effective Visual Impairment: Limited Hearing 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 Beliefs That Will Affect Care: None marital status: Current Living Situation: Spouse Feels Safe at Home: Yes Review of Systems Review of Systems: All systems reviewed & are unremarkable except as noted in HPI & below Physical Exam Constitutional: well developed, well nourished and average body habitus; no acute distress and no altered mental status Eyes: PERRL, conjunctivae normal, anicteric sclerae ENMT: external ear and nose normal, oropharynx normal Respiratory: normal respiratory effort, lungs clear to auscultation Cardiovascular: RRR, no murmur, no edema Heart Sounds: no click, no gallop, no murmur and no cardiac rub Vessels: normal peripheral pulses Extre mities: no calf tenderness and no edema Gastrointestinal (Abdomen): normal bowel sounds, soft, nontender, no hepatosplenomegaly Skin: no rashes, warm and dry Results & Data Results & Data ([facility]) Vital Signs (Past 12 Hours) Vital Signs Temp Pulse Pulse Resp BP BP Pulse Ox 12/31/19 23:50 76 135/78 95 12/31/19 22:57 83 83 23 117/77 117/77 94 12/31/19 22:13 95 12/31/19 21:36 36.7 C 114 H 12 152/91 H 96 Supervising Physician Co-Signing Physician Notes Attending addendum: I have physically seen this patient, have supervised the medical residents activities, and agree with the H&P unless as otherwise noted. Assessment and Plan: Chest pain/nonspecific ST-T EKG changes/atrial flutter/hypertension- The patient will be admitted to telemetry for serial cardiac enzymes, serial EKG's, cardiac rhythm monitoring and a 2-D echocardiogram with Dopplers. Continue metoprolol succinate, amlodipine, apixaban, aspirin, atorvastatin and nitroglycerin sublingual as needed Abnormal LFTs/gastritis/hiatal hernia/history of esophagitis- Ordered right upper quadrant ultrasound. Repeat in a.m. No additional work-up until ultrasound repeat labs return. Pantoprazole 20 mg p.o. twice daily Remaining orders and notations as noted Resident Activity Tracking Resident Involvement: Resident Care Provided Care Provided: Adult Hospital Medicine (1) Chest pain Chest pain type: unspecified Qualified Code(s): R07.9 - Chest pain, unspecified
[2020-01-01] MEDS ORDERED: ALUMINUM/MAGNESIUM SUSP 30 ML UDC PO PRN (02:11)
[2020-01-01] MEDS ORDERED: NITROGLYCERIN SL 0.4 MG/TAB TAB SL PRN (02:11)
[2020-01-01] MEDS ORDERED: ONDANSETRON INJ 2 MG/ML 2 ML VIAL IV PRN (02:11)
[2020-01-01] MEDS ORDERED: NSS + 20MEQ KCL 20 MEQ/1,000 ML BAG IV SCH (02:11)
[2020-01-01] MEDS ORDERED: ACETAMINOPHEN 325 MG TAB PO PRN (02:11)
[2020-01-01] MEDS ORDERED: POLYETHYLENE (MIRALAX) 17 GM PACK PO PRN (02:11)
--- NOTE | 2020-01-01 02:19 | Emergency Department Note ---
ED Visit Note The patient was seen and examined with anup. I agree with the history, physical and findings. Please see the note for disposition and details. . : Chest pain Qualifiers: Chest pain type: unspecified Qualified Code(s): R07.9 - Chest pain, unspecified
--- NOTE | 2020-01-01 07:54 | XRay Report ---
XR chest 1V portable CLINICAL HISTORY: Chest Pain COMPARISON STUDY: Chest radiograph September 14, 2019. FINDINGS: Lung volumes are normal. Lungs are clear. There is no pneumothorax or pleural effusion. Car diac size is normal. Mediastinal contours are normal. There is no evidence for pulmonary edema. Exten sive calcified bilateral pleural plaques are again noted. These are unchanged. The appearance of the chest is unchanged. Probable calcific tendinitis of the left rotator cuff. IMPRESSION: No acute cardiopulmonary findings. No change in appearance of the chest. ACT 112: Negative or not required by law. Electronically signed by: Constantin Bee M.D. 01/01/2020 7:53 AM
--- NOTE | 2020-01-01 08:17 | Ultrasound Report ---
US liver CLINICAL HISTORY: Abdominal Pain, elevated liver function tests COMPARISON STUDY: CT scan dated 11/13/2018 FINDINGS: The pancreas appears sonographically normal. There is mild increase in hepatic echogenicity , nonspecific finding most often seen in hepatic steatosis. No focal masses are visualized. There is a 9 mm echogenic focus within the gallbladder. There is no definitive shadowing. This did no t roll on changes in position. Diagnostic considerations include polyp versus adherent nonshadowing g allstone. Technologist reports a negative sonographic Weeks sign. There is no ductal dilatation. The common bile duct measures 5 mm. IMPRESSION: 1. Suspected mild hepatic steatosis 2. 9 mm gallbladder polyp versus nonshadowing adherent gallstone 3. No evidence of ductal dilatation ACT 112: Negative or not required by law. Electronically signed by: Mikey Shaikh M.D. 01/01/2020 8:15 AM
--- NOTE | 2020-01-01 08:37 | Electrocardiogram Report ---
Test Reason : Blood Pressure : / mmHG Vent. Rate : 103 BPM Atrial Rate : 103 BPM P-R Int : 128 ms QRS Dur : 080 ms QT Int : 342 ms P-R-T Axes : 049 058 084 degrees QTc Int : 448 ms Poor data quality, interpretation may be adversely affected Sinus tachycardia Left atrial enlargement Diffuse Nonspecific ST abnormality Abnormal ECG When compared with ECG of 14-SEP-2019 20:09, No significant change Confirmed by Tenzin Holly ([id number]) on 01/01/2020 8:36:44 AM Referred By: REFERRED SELF Confirmed By:Tenzin Holly
--- NOTE | 2020-01-01 08:38 | Electrocardiogram Report ---
Test Reason : Blood Pressure : / mmHG Vent. Rate : 091 BPM Atrial Rate : 091 BPM P-R Int : 136 ms QRS Dur : 076 ms QT Int : 370 ms P-R-T Axes : 020 053 062 degrees QTc Int : 455 ms Normal sinus rhythm Diffuse Nonspecific ST abnormality Abnormal ECG When compared with ECG of 31-DEC-2019 21:41, No significant change was found Confirmed by Tenzin Holly ([id number]) on 01/01/2020 8:37:45 AM Referred By: REFERRED SELF Confirmed By:Tenzin Holly
[2020-01-01] MEDS ORDERED: ATORVASTATIN 20 MG TAB PO SCH (09:00)
[2020-01-01] MEDS ORDERED: AMLODIPINE BESYLATE 5 MG TAB PO SCH (09:00)
[2020-01-01] MEDS ORDERED: PANTOprazole 40 MG TAB PO SCH (09:00)
[2020-01-01] MEDS ORDERED: CALCIUM 600MG + VIT D 400 IU TAB PO SCH (09:00)
[2020-01-01] MEDS ORDERED: CYANOCOBALAMIN 500 MCG TABLET (VITAMIN B-12) PO SCH (09:00)
[2020-01-01] MEDS ORDERED: DORZOLAMIDE HCL 2% OPH SOLN 10 ML BTL OP SCH (09:00)
[2020-01-01] MEDS ORDERED: CEROVITE ADV FORMULA TAB PO SCH (09:00)
[2020-01-01] MEDS ORDERED: APIXABAN 5 MG TABLET PO SCH (09:00)
[2020-01-01] MEDS ORDERED: METOPROLOL SUCC 25MG EXT REL TAB PO SCH (09:00)
--- NOTE | 2020-01-01 09:16 | XCELERA ---
[id number] \\[id number]_[id number]}___[id number]
[2020-01-01] MEDS ORDERED: PERFLUTREN LIPID MICROSPHERE (DEFINITY) IV ONE (10:23)
--- NOTE | 2020-01-01 11:53 | XCELERA ---
[id number] \\[id number]\PDF_[id number]}___[id number]
--- NOTE | 2020-01-01 14:32 | Med Student Discharge Summary ---
Date of Service January 01, 2020 Admission HPI Per Admitting Provider Alessandro Christensen is a 74 year old man with a past medical history significant for Atrial Flutter, Hiatal Hernia, GERD, absestosis, and non obstructive coronary artery disease with anginal chest pain who presents from home with severe chest pain. Chest pain is located directly centrally on his chest, does not radiate. Tonight around 9:30 pm it struck him quite severely it became so severe he thought he might vomit or pass out from pain. He tried to get up and walk it out which has helped in the past but it did not relieve it. He took some nitroglycerin which he feels may have helped eventually. Here in the ED he c urrently endorses no pain and feels in his usual state of health. He does tell me that this pain has been present for some time, multiple weeks. He does not feel that anything necessarily makes it better or worse, but he notices it most when he is sitting in his lazy boy after supper. He has been active, he walks a half mile to the local [employer] and back quite regularly. He sometimes notices that he has this discomfort while he does this walk but it's never enough to stop him from doing what he's doing. Pain does not seem to be reproducible with deep breaths or movements. Patient with history of GERD and asbestosis and he attributes this discomfort to GI related pain. He is on pantoprazole 20 mg and feels his GERD is not well controlled. Has had an EGD which did not show any ulcers, or suspicious lesions. [facility]. Occasional drinker, non smoker, no drug use. Lives with . Full Code Admission Exam (Per Admitting) Constitutional well developed, well nourished and average body habitus; no acute distress and no altered mental status Eyes PERRL, conjunctivae normal, anicteric sclerae ENMT external ear and nose normal, oropharynx normal Respiratory normal respiratory effort, lungs clear to auscultation Cardiovascular RRR, no murmur, no edema Heart Sounds: no click, no gallop, no murmur and no cardiac rub Vessels: normal peripheral pulses Extremities: no calf tenderness and no edema Gastrointestinal (Abdomen) normal bowel sounds, soft, nontender, no hepatosplenomegaly Skin no rashes, warm and dry Discharge Data Consultations 12/31/19 23:29 ED Decision to Admit Stat PE (01/01/20) Gen: Appears in no acute distress Cardio: RRR with no murmur, rubs, clicks, or gallops. No carotid bruits. normal capillary refill. Pulm: Normal breath sounds on auscultation GI: no tenderness to palpation. Normal bowel sounds on auscultation. Negative Weeks's sign. Neuro: 2+ reflexes bilaterally Eyes: PERRL Hospital Course (1) GERD (gastroesophageal reflux disease): Pt has a burning substernal post-prandial chest pain that worsens after dinner and with sitting down. Pt has a history of GERD and a hiatal hernia. Pt has admitted that his low fat diet for hepatitic steatosis has deteriorated slightly. Due to the onset, location, pt's history and diet, and negative cardiac stress test, pt's pain is most likely related to GERD. Pt has been instructed about the foods to avoid that can lead to acid reflux. 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 (2) Palpitations: Pt admits to experiencing heart palpitations and has a history consistent with coronary atherosclerosis, cardiac catheterization, atrial flutter, and essential hypertension. Echocardiogram showed an EF of 60-65%, normal left and right ventricular systolic function, borderline concentric left ventricular hypertrophy, grade I diastolic dysfunction, and no significant valvular pathology. Pt had a negative stress test for inducible ischemia and no chest pain. There was exaggeration of baseline ST abnormalities during exercise. Overall, the pt states that his palpitations have not changed in frequency or severity nor has it resulted in increasing physical symptoms or limited activities of daily living. Overall pt is stable and compliant with medication. (3) Polyp of gallbladder: An incidental 9 mm gallbladder polyp or potential non-shadowing adherent gallstone was found on hepatic ultrasound. No evidence of ductal dilation was found. Pt has a family history (father) consistent with gallbladder cancer of an unknown type. Repeat ultrasound for 6 months to monitor for changes in gallbladder mass. Schedule follow up with PCP. Discharge Plan Discharge Items Patient Disposition: Home - Self-Care Reason For Visit: CHEST PAIN, ELEVATED LFT'S Discharge Diagnosis: reflux Condition on Discharge: Fair Activity: Per Instructions section Non-emergency contact: Primary Care Provider Call non-emergency contact if: your symptoms worsen Follow-up/Referrals: Harini Tristan PA-C [Primary Care Provider] - Diet: Regular Addtl Attending Provider Instructions: Chest pain You developed chest pain in the evening. You were evaluated for cardiac causes with labs, imaging and a stress test. All labs were reassuring. The pain was likely due to reflux. Foods that make your indigestion include fatty food and caffeine. You should avoid fast food. Elevated liver enzymes This is likely from fatty liver disease that has previously been evaluated. You will need to continue to follow up with this and make dietary changes as we had discussed. Gallbladder You were seen to have a gallbladder polyp, or stone that is 9mm in size. This will need to be followed up in 6 months to evaluate the size of the polyp is stable at 6 months you will have this followed up in one year with imaging. This information will be sent to your primary care doctor but you should also ensure they are aware so they are able to follow this up. Follow up You will need to call to set up an appointment in the next week with your primary doctor at the [facility]. At this time you can have them request your records from the hospital. Return precautions If you develop chest pain that feels different from this pain, radiating up your neck, arm, with nausea and vomiting. Pending Studies at Discharge: No Stand-Alone Forms: My [facility] Student Designed, Smoking Cessation Medications and DC Order Prescriptions: Continued latanoprost 0.005 % Drops 1 drp OPHTHALMIC (EYE) QPM RF: 0 atorvastatin 40 mg Tablet 20 mg PO QAM RF: 0 metoprolol succinate 50 mg Tablet Extended Release 24 Hr 25 mg PO BID RF: 0 cyanocobalamin (vitamin B-12) [Vitamin B-12] 1,000 mcg Tablet 500 mcg PO BID RF: 0 amlodipine 5 mg Tablet 5 mg PO QAM RF: 0 cholecalciferol (vitamin D3) [Vitamin D3] 1,000 unit Capsule 1,000 unit PO QPM RF: 0 apixaban 5 mg Tablet 5 mg PO BID RF: 0 nitroglycerin [Nitrostat] 0.4 mg Tablet, Sublingual 0.4 mg sublingual DIRECTED PRN (Reason: Chest Pain) RF: 0 pantoprazole 20 mg Tablet,Delayed Release (Dr/Ec) 20 mg PO BID RF: 0 PreserVision AREDS [id number] Tablet 1 tab PO DAILY RF: 0 aspirin [Aspir-81] 81 mg Tablet,Delayed Release (Dr/Ec) 81 mg PO QPM RF: 0 dorzolamide (PF) 2 % Drops 1 drp OPHTHALMIC (EYE) TID RF: 0 Calcium 600 + D(3) 600 mg calcium- 200 unit Capsule 1 cap PO BID RF: 0 Discharge Orders: Discharge Order (Routine); Ordered 01/01/20 Ordered By: Michael Mirza/Other Patient Handouts: ED About Arrhythmias Admission Data Admit Date/Time: 01/01/20 01:11 Attending Provider: Tushar Hough Admit Provider: Ryan Ferreira Primary Care Provider: Harini Tristan Other Providers: Tushar Hough Other Interventions: Discharge Summary Assessment (RN) Last Done: 01/01/20 14:28 Supervising Attestation I personally examined the patient and verified all redding points of history and exam, discussed case, and agree with decision making with Beatriz Grier MS2. feeling better. enzymes negative. stress negative. ntoes eating a lot of burgers. wonders if the impossible burger at [employer] is bad for him vitals noted nad heent nc at mmm breathing unlabored no accessory muscles good effort skin no rashes no pallor or icterus chest pain - ACS/unstable angina ruled out. appears most c/w GERD - discussed diet changes and that armas's probably not the best choice to prevent an upset stomach. stable for home gallbladder polyp - repeat US in several months otherwise as above, stable for home
--- NOTE | 2020-01-01 19:22 | Billing Data ---
Date of Service January 01, 2020 Coding Level of Care Code 99191 OBS Care - Discharge
[2020-01-01] MEDS ORDERED: ASPIRIN 81 MG ECTAB PO SCH (21:00)
[2020-01-01] MEDS ORDERED: LATANOPROST 0.005% OP SOLN 2.5 ML BTL OP SCH (21:00)
[2020-01-01] MEDS ORDERED: CHOLECALCIFEROL 1,000 UNITS 25 MCG TAB PO SCH (21:00)
--- NOTE | 2020-01-02 17:33 | Billing Data ---
Date of Service January 02, 2020 Coding Level of Care Code 95872 OBS Care - Level 3
== END 2020-01-01 15:24 | disposition home or self-care (01) ==
LOC: 2S 21:34 → ED 21:34 → SUATTDRO 01-01 01:11 → 2S 01-01 02:04

== ENCOUNTER 2021-08-05 02:23 | Inpatient (IN) ==
[2021-08-05 04:32] LABS: Hematocrit (blood only) 44.9 % (42-52); Hemoglobin 15.5 g/dL (14.0-18.0); Mean Corpuscular Hemoglobin 32.6 pg (25-34); Mean Corpuscular Hgb Conc 34.5 g/dL (32-36); Mean Corpuscular Volume 94.5 fL (80-100); Mean Platelet Volume 9.6 fL (7.4-10.4); Platelet Count 167 K/uL (130-400); RDW Coefficient of Variation 13.8 % (11.5-14.5); RDW Standard Deviation 47.7 fL (36.4-46.3); Red Blood Count 4.75 M/uL (4.7-6.1); White Blood Count 10.86 K/uL (4.8-10.8)
[2021-08-05 04:50] LABS: ALC (manual) 1.61 K/uL (1.2-3.4); ANC (manual) 7.93 K/uL (1.4-6.5); Basophils % (manual) 0.9 %; Lymphocytes # (manual) 1.61 K/uL (1.2-3.4); Lymphocytes % (manual) 14.8 %; Monocytes # (manual) 1.23 K/uL (0.11-0.59); Monocytes % (manual) 11.3 %; Neutrophils # (manual) 7.93 K/uL (1.4-6.5); RBC Morphology Unremarkable
[2021-08-05 05:01] LABS: Albumin Globulin Ratio 0.9 (0.9-2); Albumin Level 3.7 gm/dl (3.4-5.0); BUN Creatinine Ratio 26.1 (10-20); Bilirubin,Total 1.3 mg/dl (0.2-1.0); Calcium 9.6 mg/dl (8.5-10.1); Creatinine Clr Calc Pharmacy 89.7 ml/min; Est GFR (African American) 106.1 ml/min; Est GFR (Non-African American) 91.6 ml/min; Globulin 3.9 gm/dl (2.5-4.0); Potassium 4.3 mmol/L (3.5-5.1); Total Protein 7.6 gm/dl (6.0-8.3)
[2021-08-05 05:07] LABS: Troponin I High Sensitivity 9.9 pg/ml (0-20)
--- NOTE | 2021-08-05 05:43 | Emergency Department Note ---
History of Present Illness General Chief complaint: Shortness of Breath/Dyspnea Stated complaint: SOB Time Seen by Provider: 08/05/21 03:10 Source: patient and EMS Mode of arrival: EMS Limitations: no limitations History of Present Illness Provider complaint: Shortness of breath Onset (ago): day(s) 1 This is a 75-year-old male presents emerged from complaining of shortness of breath. Patient brought in by EMS, was noted to be hypoxic for them per their report was given a DuoNeb treatment as patient does have a prior history of tobacco abuse. Patient denies any use of oxygen at home, no use of nebulizer/MDI's, no diagnosis of COPD. Patient had a cholecystectomy performed here on . States he was discharged with pain medication. is concerned as he has had prior adverse reactions to pain medications. Patient states he cannot find a comfortable position. Denies fevers, chills, cough, or hemoptysis. Denies chest pain or palpitations. Patient states he feels as th ough he cannot take a deep breath. states patient does have a history of heart problems, does take anticoagulation daily and was slated to restart that this morning as he had been off it from the surgery. Patient was noted to be hypoxic on room air here at 87%, was placed on 2 L via nasal cannula. States his breathing does seem more difficult when laying down. Denies any recent leg swelling or calf tenderness. Pt seen during a time of high acuity and national emergency pandemic while we aring PPE. Home Medications Medication Instructions Recorded Confirmed Type amlodipine 5 mg tablet 5 mg PO QAM 11/13/18 08/05/21 History cholecalciferol (vitamin D3) 25 1,000 unit PO QPM 11/13/18 08/05/21 History mcg (1,000 unit) capsule (Vitamin D3) cyanocobalamin (vitamin B-12) 500 mcg PO QAM 11/13/18 08/05/21 History 1,000 mcg tablet (Vitamin B-12) latanoprost 0.005 % eye drops 1 drp OPB QPM 11/13/18 08/05/21 History nitroglycerin 0.4 mg sublingual 0.4 mg SUBLINGUAL DIRECTED PRN 09/14/19 History tablet (Nitrostat) calcium carbonate 600 mg-vitamin 1 cap PO BID 09/29/19 08/05/21 History D3 5 mcg (200 unit) capsule (Calcium 600 + D(3)) dorzolamide (PF) 2 % (PF) eye drops 1 drp OPB TID 09/29/19 08/05/21 History vitamins A,C,C-cxdv-kcuydx 7,160 1 tab PO BID 12/31/19 08/05/21 History unit-113 mg-100 unit tablet (PreserVision AREDS) amitriptyline 25 mg tablet 25 mg PO HS 02/27/20 08/05/21 History aspirin 81 mg tablet,delayed 81 mg PO HS 02/27/20 08/05/21 History release metoprolol tartrate 50 mg tablet 25 mg PO BID 06/03/21 08/05/21 History pantoprazole 40 mg tablet,delayed 40 mg PO QAM 07/19/21 08/05/21 History release (Protonix) sennosides 8.6 mg-docusate sodium 1 - 4 tab-cap PO UD PRN 07/19/21 08/05/21 History 50 mg tablet (Colace 2-In-1) apixaban 5 mg tablet 5 mg PO BID 08/05/21 08/05/21 History atorvastatin 40 mg tablet 40 mg PO HS 08/05/21 08/05/21 History docusate sodium 100 mg capsule 100 mg PO TID PRN 08/05/21 08/05/21 History (Colace) Allergies Allergy/AdvReac Type Severity Reaction Status Date / Time codeine AdvReac Intermediate NAUSEA, Verified 08/05/21 07:27 BLOOD PRESSURE DROPPED, DIZZINESS Past Med/Surg History Medical History Asbestosis Atrial flutter ELIQUIS BID Coronary atherosclerosis of [place] coronary vessel Mild CAD per 2016 cath per cardio records No hx of stents or bypass GERD (gastroesophageal reflux disease) Glaucoma AND MACULAR DEGENERATION Hiatal hernia HTN (hypertension) Hyperlipidemia 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 Per records Surgical History H/O cardiac catheterization X MULTIPLE-LAST ONE COUPLE YRS-[facility]-NO STENTS History of colonoscopy History of herniorrhaphy X 2 Hx laparoscopic cholecystectomy (08/03/21) Laparoscopic Cholecystectomy and Liver Biopsy- Panchito Mena DO Family History Father Cancer Mother Heart disease Social History Smoking Status: Former smoker Tobacco Type: Cigarettes Smoking End Date: 1992; Second Hand Exposure: Yes; Do You Dip or Chew Tobacco: Yes; Tobacco Cessation Education Requested by Patient: No Hx Alcohol Use: Yes Alcohol type: beer Hx Substance Use: No Preferred Language: Portuguese Communication Ability: Effective Visual Impairment: Limited Hearing Ability: Normal Machine Setup Operator Required: No Beliefs That Will Affect Care: None marital status: Current Living Situation: Spouse current occupational status: retired How many Children do You have: 2 Other Information That Helps Us Care for You: No Feels Safe at Home: Yes Safety Concerns: Feels Safe At This Time during the past year weight has: remained stable Assistive Devices: Cane, Denture - Lower and Glasses Review of Systems A total of 10 systems reviewed and were otherwise negative All systems reviewed & are unremarkable except as noted in HPI & below Physical Exam Vital Signs Vital Signs - 24 hr 08/05/21 06:30 08/05/21 06:38 08/05/21 07:00 Pulse Rate 99 H 101 H 97 H Pulse Rate from SpO2 Sensor 99 H 99 H 97 H Respiratory Rate 22 22 21 Blood Pressure 118/76 Blood Pressure Mean 90 Pulse Oximetry 95 94 95 Oxygen Delivery Method Oxygen Flow Rate 08/05/21 07:30 08/05/21 08:00 08/05/21 08:13 Pulse Rate 98 H 97 H 105 H Pulse Rate from SpO2 Sensor 98 H 97 H 105 H Respiratory Rate 18 20 28 H Blood Pressure 153/90 H 153/90 H Blood Pressure Mean 111 111 Pulse Oximetry 94 96 93 Oxygen Delivery Method Nasal Cannula Oxygen Flow Rate 3 08/05/21 08:30 08/05/21 09:00 08/05/21 09:30 Pulse Rate 105 H 101 H 96 H Pulse Rate from SpO2 Sensor 105 H 98 H 97 H Respiratory Rate 29 H 24 18 Blood Pressure 157/92 H 130/84 131/71 Blood Pressure Mean 113 99 91 Pulse Oximetry 92 93 93 Oxygen Delivery Method Oxygen Flow Rate 08/05/21 10:00 Pulse Rate 96 H Pulse Rate from SpO2 Sensor 96 H Respiratory Rate 19 Blood Pressure 136/82 Blood Pressure Mean 100 Pulse Oximetry 93 Oxygen Delivery Method Oxygen Flow Rate GENERAL: alert, uncomfortable appearing, well nourished, no distress, non-toxic EYE EXAM: normal conjunctiva, PERRL and EOM's grossly intact OROPHARYNX: no exudate, no erythema, lips, buccal mucosa, and tongue normal and mucous membranes are moist NECK: supple, no nuchal rigidity, no adenopathy, non-tender LUNGS: Clear to auscultation. Normal chest wall mechanics, no w/r/r, no retractions, no tachypnea HEART: no murmurs, S1 normal and S2 normal ABDOMEN: abdomen soft, non-tender, normo-active bowel sounds, no masses, no rebound or guarding. Appearance of healing incisions noted to abdomen consist ent with recent laparoscopic cholecystectomy BACK: Back is symmetrical on inspection and there is no deformity, no midline tenderness, no CVA tenderness. SKIN: no rashes and no bruising UPPER EXTREMITIES: upper extremities are grossly normal. FROM, nml pulses b/l. 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 LOWER EXTREMITIES: No pitting edema. FROM, nml pulses b/l. NEURO EXAM: Normal sensorium, cranial nerves II-XII grossly intact, normal speech, no gross weakness of arms, no gross weakness of legs. Gross sensation intact. Course Course 0540: Patient still short of breath, denies pain, updated on results thus far. 0805: Updated on results. Patient 94% on 3 L/min via nasal cannula. 0830: Discussed with Dr. Her. Administered Medications Amitriptyline HCl (Amitriptyline Hcl 25 Mg Tab) 25 mg PO HS ENEDINA Stop: 09/04/21 20:59 Last Admin: 08/05/21 20:33 Dose: 25 mg Documented by: [id number] Apixaban (Apixaban 5 Mg Tablet) 5 mg PO BID ENEDINA Stop: 09/04/21 20:59 Last Admin: 08/05/21 20:32 Dose: 5 mg Documented by: [id number] Aspirin (Aspirin 81 Mg Ectab) 81 mg PO HS ENEDINA Stop: 09/04/21 20:59 Last Admin: 08/05/21 20:34 Dose: 81 mg Documented by: [id number] Atorvastatin Calcium (Atorvastatin 40 Mg Tab) 40 mg PO HS ENEDINA Stop: 09/04/21 20:59 Last Admin: 08/05/21 20:32 Dose: 40 mg Documented by: [id number] Dorzolamide HCl (Dorzolamide Hcl 2% Oph Soln 10 Ml Btl) 1 drops OPB TID ENEDINA Stop: 09/04/21 13:59 Last Admin: 08/05/21 20:34 Dose: 1 drops Documented by: [id number] Admin: 08/05/21 13:31 Dose: 1 drops Documented by: [id number] Furosemide (Furosemide 40 Mg/4 Ml Vial) 40 mg IV [id number] ENEDINA Stop: 09/04/21 16:59 Last Admin: 08/05/21 17:19 Dose: 40 mg Documented by: [id number] Latanoprost (Latanoprost 0.005% Op Soln 2.5 Ml Btl) 1 drops OPB QPM ENEDINA Stop: 09/04/21 20:59 Last Admin: 08/05/21 20:34 Dose: 1 drops Documented by: [id number] Metoprolol Tartrate (Metoprolol Tartrate 25 Mg Tab) 25 mg PO TID ENEDINA Stop: 09/04/21 12:14 Last Admin: 08/05/21 20:32 Dose: 25 mg Documented by: [id number] Admin: 08/05/21 13:30 Dose: 25 mg Documented by: [id number] Multivitamins/Minerals (Calcium 600mg + Vit D 400 Iu Tab) 1 tab PO BID ENEDINA Stop: 09/04/21 20:59 Last Admin: 08/05/21 20:33 Dose: 1 tab Documented by: [id number] Multivitamins/Minerals (Cerovite Adv Formula Tab) 1 tab PO BID ENEDINA Stop: 09/04/21 20:59 Last Admin: 08/05/21 20:35 Dose: 1 tab Documented by: [id number] Vitamin D (Cholecalciferol 1,000 Units 25 Mcg Tab) 1,000 units PO QPM ENEDINA Stop: 09/04/21 20:59 Last Admin: 08/05/21 20:33 Dose: 1,000 units Documented by: [id number] Discontinued Medications Sodium Chloride (Nss 1000ml) 1,000 mls @ 125 mls/hr IV .Q8H ENEDINA Stop: 08/05/21 20:12 Last Infusion: 08/05/21 20:38 Dose: 0 mls/hr Documented by: [id number] Infusion: 08/05/21 20:35 Dose: 0 mls/hr Documented by: [id number] Admin: 08/05/21 17:13 Dose: 125 mls/hr Documented by: [id number] Infusion: 08/05/21 17:08 Dose: 0 mls/hr Documented by: [id number] Admin: 08/05/21 08:23 Dose: 125 mls/hr Documented by: [id number] Ioversol (Optiray 320 125ml) 121 ml IV ONCE ONE Stop: 08/05/21 05:56 Last Admin: 08/05/21 05:56 Dose: 121 ml Documented by: [id number] Ondansetron HCl (Ondansetron Inj 2 Mg/Ml 2 Ml Vial) 4 mg IV NOW STA Stop: 08/05/21 08:13 Last Admin: 08/05/21 08:23 Dose: 4 mg Documented by: [id number] Medical Decision Making Differential Diagnosis Differential diagnoses includes but is not limited to pneumonia, bronchitis, COPD/Asthma exacerbation, pneumothorax, pulmonary embolism, congestive heart failure, acute coronary syndrome Medical Records Attestation: I reviewed the patient's medical records. Home Medications Current Medication List: was personally reviewed by me Laboratory Data Attestation: I reviewed the patient's lab results. Result diagrams: 08/05/21 04:20 08/05/21 04:20 Lab Results 08/05/21 08/05/21 08/05/21 Range/Units 04:20 04:20 04:20 WBC 10.86 H (4.8-10.8) K/uL RBC 4.75 (4.7-6.1) M/uL Hgb 15.5 (14.0-18.0) g/dL Hct 44.9 (42-52) % MCV 94.5 (80-100) fL MCH 32.6 (25-34) pg MCHC 34.5 (32-36) g/dL RDW Std Deviation 47.7 H (36.4-46.3) fL RDW Coeff of Arlin 13.8 (11.5-14.5) % Plt Count 167 (130-400) K/uL MPV 9.6 (7.4-10.4) fL Neutrophils % (Manual) 73.0 % Lymphocytes % (Manual) 14.8 % Monocytes % (Manual) 11.3 % Basophils % (Manual) 0.9 % Neutrophils # (Manual) 7.93 H (1.4-6.5) K/uL Total Absolute Neuts 7.93 H (1.4-6.5) K/uL Lymphocytes # (Manual) 1.61 (1.2-3.4) K/uL Total Abs Lymphocytes 1.61 (1.2-3.4) K/uL Monocytes # (Manual) 1.23 H (0.11-0.59) K/uL Basophils # (Manual) 0.10 (0-0.2) K/uL RBC Morphology Unremarkable Sodium 132 L (136-145) mmol/L Potassium 4.3 (3.5-5.1) mmol/L Chloride 100 (98-107) mmol/L Carbon Dioxide 23 (21-32) mmol/L Anion Gap 9 (3-11) BUN 18 (6-23) mg/dl Creatinine 0.69 (0.6-1.4) mg/dl Est Cr Clr Drug Dosing 89.7 ml/min Est GFR ( Amer) 106.1 ml/min Est GFR (Non-Af Amer) 91.6 ml/min BUN/Creatinine Ratio 26.1 H (10-20) Glucose 124 H (70-99(Fasting)) mg/dl Calcium 9.6 (8.5-10.1) mg/dl Magnesium 2.0 (1.7-2.4) mg/dl Total Bilirubin 1.3 H (0.2-1.0) mg/dl Direct Bilirubin (0-0.2) mg/dl AST 44 H (13-39) U/L ALT 49 (7-52) U/L Alkaline Phosphatase 62 (34-104) U/L Troponin I High Sens 9.9 (0-20) pg/ml B-Natriuretic Peptide 145 H (0-100) pg/ml Total Protein 7.6 (6.0-8.3) gm/dl Albumin 3.7 (3.4-5.0) gm/dl Globulin 3.9 (2.5-4.0) gm/dl Albumin/Globulin Ratio 0.9 (0.9-2) SARS-CoV-2, RNA, NAAT (NEGATIVE) 08/05/21 08/05/21 Range/Units 04:20 06:45 WBC (4.8-10.8) K/uL RBC (4.7-6.1) M/uL Hgb (14.0-18.0) g/dL Hct (42-52) % MCV (80-100) fL MCH (25-34) pg MCHC (32-36) g/dL RDW Std Deviation (36.4-46.3) fL RDW Coeff of Arlin (11.5-14.5) % Plt Count (130-400) K/uL MPV (7.4-10.4) fL Neutrophils % (Manual) % Lymphocytes % (Manual) % Monocytes % (Manual) % Basophils % (Manual) % Neutrophils # (Manual) (1.4-6.5) K/uL Total Absolute Neuts (1.4-6.5) K/uL Lymphocytes # (Manual) (1.2-3.4) K/uL Total Abs Lymphocytes (1.2-3.4) K/uL Monocytes # (Manual) (0.11-0.59) K/uL Basophils # (Manual) (0-0.2) K/uL RBC Morphology Sodium (136-145) mmol/L Potassium (3.5-5.1) mmol/L Chloride (98-107) mmol/L Carbon Dioxide (21-32) mmol/L Anion Gap (3-11) BUN (6-23) mg/dl Creatinine (0.6-1.4) mg/dl Est Cr Clr Drug Dosing ml/min Est GFR ( Amer) ml/min Est GFR (Non-Af Amer) ml/min BUN/Creatinine Ratio (10-20) Glucose (70-99(Fasting)) mg/dl Calcium (8.5-10.1) mg/dl Magnesium (1.7-2.4) mg/dl Total Bilirubin (0.2-1.0) mg/dl Direct Bilirubin 0.2 (0-0.2) mg/dl AST (13-39) U/L ALT (7-52) U/L Alkaline Phosphatase (34-104) U/L Troponin I High Sens (0-20) pg/ml B-Natriuretic Peptide (0-100) pg/ml Total Protein (6.0-8.3) gm/dl Albumin (3.4-5.0) gm/dl Globulin (2.5-4.0) gm/dl Albumin/Globulin Ratio (0.9-2) SARS-CoV-2, RNA, NAAT NEGATIVE (NEGATIVE) Imaging Data My Impression: X-ray: I interpreted the following studies. Chest: A single view study of the chest was reviewed and was negative for cardiomegaly, focal infiltrate, effusion, pulmonary edema, or wide mediastinum. Chronic appearing changes likely from his asbestosis, these were present on a prior x-ray also. Radiologist's Impression: CTA chest: No pulmonary embolus. No aortic aneurysm or dissection. Bibasilar airspace opacities may represent atelectasis, less likely pneumonia. There are calcified pleural plaques bilaterally. There is most likely represent asbestosis related disease. Pericardial effusion measures up to 4 mm. No pathologically enlarged lymph nodes. No fracture. Incidentally noted fatty infiltration of the liver. Radiologist: Racheal Hebert MD ECG Data Attestation: I personally reviewed and interpreted this ECG as follows: Indication: + SOB/dyspnea Rate (beats per minute): 105 Rhythm: + sinus tachycardia ECG Intervals/blocks: + Normal QRS and + Normal QT ECG [place]: + Normal ECG ST segments: + T-wave inversions (V2-5) MDM Narrative This is a 75-year-old male presents emergency department complaining of increased shortness of breath. Patient was found to be hypoxic for EMS and was also confirmed to be hypoxic on room air here. Patient does not typically wear oxygen at home. Patient does have a remote history of smoking, no known diagnosis of COPD, no other use of nebs/MDI at home. Patient does have cardiac history. Labs drawn and sent and were reassuring. Patient was maintained on nasal cannula supplemental oxygen although patient continued to appear uncomfortable and stated lying flat made his symptoms worse. Oxygen was increased in order to obtain CT angiography of the chest to rule out PE given recent surgery and brief cessation of his anticoagulation in light of the surgery. Patient scheduled to restart his blood thinner this morning. No evidence of pneumonia, pleural effusion, or CHF. Troponin negative and EKG reassuring. No evidence of PE on CT. Due to concern for persistent hypoxia of unclear etiology, case discussed with hospitalist for additional evaluation management. An order was placed for continuous cardiac monitoring. The monitor shows a rate of _101__ with _sinus tachycardia_ rhythm. Impression & Plan Dyspnea, Hypoxia, Elevated brain natriuretic peptide (BNP) level, Hyponatremia Discharge Plan Visit Data Chief Complaint: Shortness of Breath/Dyspnea Stated Complaint: SOB ED Provider: Nola Gardiner Discharge Problem: Dyspnea, Hypoxia, Elevated brain natriuretic peptide (BNP) level, Hyponatremia Patient Disposition: Admitted As Inpatient Discharge Instructions Interventions: ED Discharge Assessment Last Done: 08/05/21 11:05
[2021-08-05] MEDS ORDERED: OPTIRAY 320 125ml IV ONE (05:55)
[2021-08-05] MEDS ORDERED: ONDANSETRON INJ 2 MG/ML 2 ML VIAL IV STA (08:12)
[2021-08-05] MEDS: SODIUM CHLORIDE 0.9% 1000ML 1,000 ML IV SCH ×2 (08:23→17:13)
--- NOTE | 2021-08-05 09:23 | CT Scan Report ---
CT ANGIOGRAPHY OF THE CHEST, PULMONARY EMBOLUS PROTOCOL CLINICAL HISTORY: Shortness of breath. Recent bladder surgery. Evaluate for pulmonary embolus. COMPARISON STUDY: Chest radiograph September 04, 2020 and August 05, 2021. TECHNIQUE: Following IV administration of 121 mL of Optiray, helical axial images of the chest were o btained utilizing the pulmonary embolus protocol. Maximal intensity projections and sagittal and cor onal reformats were viewed on an independent 3D workstation. IV contrast was administered without co mplication. Automated exposure control was utilized for the study. A dose lowering technique was ut ilized adhering to the principles of ALARA. CT DOSE: 399.44 mGy.cm FINDINGS: No pulmonary emboli are identified. There is no thoracic aortic dissection. Moderate cardi omegaly is noted. Trace pericardial effusion is present. Mild dilatation of the central pulmonary art eries. There is no pneumothorax or pleural effusion. Extensive right lower lobe airspace opacity is n oted with volume loss. This favors atelectasis. There is segmental atelectasis within the left lower lobe. No consolidation to suggest pneumonia. Multiple calcified and noncalcified pleural plaques are noted. No thoracic lymphadenopathy is present. This was portions of the upper abdomen demonstrate hep atic steatosis with suspected cirrhosis. Caudate lobe is enlarged. IMPRESSION: 1. No pulmonary emboli identified. 2. Bilateral lower lobe airspace opacities with volume loss which favors atelectasis. No consolidatio n to suggest pneumonia. 3. Evidence for asbestos related pleural disease. 4. Moderate cardiomegaly. 5. Hepatic steatosis with suspected cirrhosis. ACT 112: Negative or not required by law. Electronically signed by: Constantin Bee M.D. 08/05/2021 9:20 AM
--- NOTE | 2021-08-05 09:28 | XRay Report ---
XR chest 1V portable CLINICAL HISTORY: Shortness of breath. COMPARISON STUDY: Chest radiograph September 04, 2020. FINDINGS: No pneumothorax or pleural effusion is noted. There is elevation of the right hemidiaphragm , slightly increased since prior exam. Multiple calcified pleural plaques are again noted. There is m ild cardiomegaly. No evidence for pulmonary edema. Bilateral lower lung opacities are present. IMPRESSION: 1. Bilateral lower lung opacities. The configuration favors atelectasis. 2. Slight increase in elevation of the right hemidiaphragm. 3. 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 ACT 112: Negative or not required by law. Electronically signed by: Constantin Bee M.D. 08/05/2021 9:27 AM
--- NOTE | 2021-08-05 09:53 | History & Physical Report ---
Date of Service August 05, 2021 Assessment & Plan (1) Dyspnea: Plan: Patient is here with SOB s/p cholescystectomy. Likely fluid overload from procedure. Will obtain echo. will conider cardio consult will order diuretics. will admit to PCU. 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 Bili is mildly elevated and INR is mildy elevated. (3) Anxiety: Plan: resume home meds (4) Hypoxia: Plan: likely from fluid overload. (5) Atrial flutter: Plan: on eliquis BID. currently in sinus tach History of Present Illness Chief Complaint: SOB Primary Care Provider: ABRAHAM JuneC This is a pleasant 75 yo male with PMH of A flutter, remote tobacco history and recent cholecystectomy. Patient was found to be SOB this morning and 911 was called. Patient was found to be hypoxic. Patient had not been taking his anticoagulation and was to start it today. Patient also is complaining of orthopnea Patient denies any chest pain, fever, chills, nausea, vomiting, palpitations. Denies any recent leg swelling or calf tenderness. Allergies Allergy/AdvReac Type Severity Reaction Status Date / Time codeine AdvReac Intermediate NAUSEA, Verified 08/05/21 07:27 BLOOD PRESSURE DROPPED, DIZZINESS Home Medications Medication Instructions Recorded Confirmed Type amlodipine 5 mg tablet 5 mg PO QAM 11/13/18 08/05/21 History cholecalciferol (vitamin D3) 25 1,000 unit PO QPM 11/13/18 08/05/21 History mcg (1,000 unit) capsule (Vitamin D3) cyanocobalamin (vitamin B-12) 500 mcg PO QAM 11/13/18 08/05/21 History 1,000 mcg tablet (Vitamin B-12) latanoprost 0.005 % eye drops 1 drp OPB QPM 11/13/18 08/05/21 History nitroglycerin 0.4 mg sublingual 0.4 mg SUBLINGUAL DIRECTED PRN 09/14/19 08/05/21 History tablet (Nitrostat) calcium carbonate 600 mg-vitamin 1 cap PO BID 09/29/19 08/05/21 History D3 5 mcg (200 unit) capsule (Calcium 600 + D(3)) dorzolamide (PF) 2 % (PF) eye drops 1 drp OPB TID 09/29/19 08/05/21 History vitamins A,C,N-fgny-sxrocb 7,160 1 tab PO BID 12/31/19 08/05/21 History unit-113 mg-100 unit tablet (PreserVision AREDS) amitriptyline 25 mg tablet 25 mg PO HS 02/27/20 08/05/21 History aspirin 81 mg tablet,delayed 81 mg PO HS 02/27/20 08/05/21 History release metoprolol tartrate 50 mg tablet 25 mg PO BID 06/03/21 08/05/21 History pantoprazole 40 mg tablet,delayed 40 mg PO QAM 07/19/21 08/05/21 History release (Protonix) sennosides 8.6 mg-docusate sodium 1 - 4 tab-cap PO UD PRN 07/19/21 08/05/21 History 50 mg tablet (Colace 2-In-1) apixaban 5 mg tablet 5 mg PO BID 08/05/21 08/05/21 History atorvastatin 40 mg tablet 40 mg PO HS 08/05/21 08/05/21 History docusate sodium 100 mg capsule 100 mg PO TID PRN 08/05/21 08/05/21 History (Colace) Past Med/Surg History Medical History (Updated 08/06/21 @ 21:05 by Ari Her) Asbestosis Atrial flutter ELIQUIS BID Coronary atherosclerosis of [place] coronary vessel Mild CAD per 2016 cath per cardio records No hx of stents or bypass GERD (gastroesophageal reflux disease) Glaucoma AND MACULAR DEGENERATION Hiatal hernia HTN (hypertension) Hyperlipidemia 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 Per records Surgical History H/O cardiac catheterization X MULTIPLE-LAST ONE COUPLE YRS-[facility]-NO STENTS History of colonoscopy History of herniorrhaphy X 2 Hx laparoscopic cholecystectomy (08/03/21) Laparoscopic Cholecystectomy and Liver Biopsy- Panchito Mena, DO Family History Father Cancer Mother Heart disease Social History Smoking Status: Former smoker Tobacco Type: Cigarettes Smoking End Date: 1992; Second Hand Exposure: Yes; Do You Dip or Chew Tobacco: Yes; Tobacco Cessation Education Requested by Patient: No Hx Alcohol Use: Yes Alcohol type: beer Hx Substance Use: No Preferred Language: Trinidadian Communication Ability: Effective Visual Impairment: Limited Hearing Ability: Normal [employer] Required: No Beliefs That Will Affect Care: None marital status: Current Living Situation: Spouse current occupational status: retired How many Children do You have: 2 Other Information That Helps Us Care for You: No Feels Safe at Home: Yes Safety Concerns: Feels Safe At This Time during the past year weight has: remained stable Assistive Devices: Cane, Denture - Lower and Glasses Review of Systems Constitutional: no fever and no sweats Eyes: no blind spots Ear, Nose, Mouth, Throat: no ear pain Respiratory: + cough Cardiovascular: no chest pain Gastrointestinal: no abdominal pain Genitourinary: no dysuria Musculoskeletal: no back pain Integumentary: no rash Neurologic: no gait abnormality Psychiatric: no behavioral changes Endocrine: no fatigue Hematologic / Lymphatic: no easy bleeding Allergy / Immunological: no GI upset with certain foods Physical Exam Constitutional: WD/WN, vitals as above Eyes: PERRL, conjunctivae normal, anicteric sclerae ENMT: external ear and nose normal, oropharynx normal Respiratory: + respiratory distress and + uses accessory muscles Auscultation: + rales Cardiovascular: Rate/Rhythm: regular rhythm and + tachycardic Gastrointestinal (Abdomen): normal bowel sounds, soft, nontender, no hepatosplenomegaly Musculoskeletal: no cyanosis or clubbing, extremities motor strength 5/5 Skin: no rashes, warm and dry Neurologic: PERRL, EOMI, accommodation nl, no face palsy, no dysarthria Psychiatric: A+Ox3, euthymic affect Lymphatic: no cervical or axillary lymphadenopathy Results & Data Results & Data ([facility]) Vital Signs (Past 12 Hours) Vital Signs Temp Pulse Pulse Resp BP BP Pulse Ox 08/05/21 08:00 97 H 20 153/90 H 96 08/05/21 07:30 98 H 18 94 08/05/21 07:00 97 H 21 95 08/05/21 06:38 101 H 22 118/76 94 08/05/21 06:30 99 H 22 95 08/05/21 06:00 37.2 C 97 H 22 118/76 94 08/05/21 05:30 99 H 30 H 96 08/05/21 05:00 93 H 26 H 94 08/05/21 04:30 95 H 27 H 93 08/05/21 04:00 101 H 94 H 40 H 142/94 H 91 08/05/21 03:30 89 24 90 08/05/21 03:00 94 H 28 H 95 08/05/21 02:36 101 H 24 92 08/05/21 02:34 36.8 C 98 H 98 H 18 134/82 134/82 93 PG Care Time/CCT Total # of Minutes Spent Total Time Spent with Patient: Total time spent is greater than 50% in coordination of care (as documented) at patient's floor/unit and/or counseling patient: Coding Level of Care Code 78665 Initial Inpt Care Lvl 3 Diagnoses Dyspnea R06.02 Dyspnea type: shortness of breath 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
[2021-08-05] MEDS ORDERED: NITROGLYCERIN SL 0.4 MG/TAB TAB SL PRN (09:56)
[2021-08-05] MEDS ORDERED: DOCUSATE SODIUM 100 MG CAP PO PRN (09:56)
--- NOTE | 2021-08-05 11:45 | Electrocardiogram Report ---
Test Reason : Blood Pressure : / mmHG Vent. Rate : 099 BPM Atrial Rate : 099 BPM P-R Int : 136 ms QRS Dur : 082 ms QT Int : 356 ms P-R-T Axes : 024 022 -29 degrees QTc Int : 456 ms Normal sinus rhythm Low voltage QRS Nonspecific T wave abnormality Abnormal ECG When compared with ECG of 04-SEP-2020 07:44, Nonspecific T wave abnormality, worse in Inferior leads Nonspecific T wave abnormality now evident in Anterolateral leads Confirmed by Justen Horner ([id number]) on 08/05/2021 11:45:04 AM Referred By: REFERRED SELF Confirmed By:Justen Horner
--- NOTE | 2021-08-05 11:46 | Electrocardiogram Report ---
Test Reason : Blood Pressure : / mmHG Vent. Rate : 105 BPM Atrial Rate : 105 BPM P-R Int : 132 ms QRS Dur : 084 ms QT Int : 348 ms P-R-T Axes : 027 025 -88 degrees QTc Int : 459 ms Sinus tachycardia Possible Left atrial enlargement Nonspecific T wave abnormality Abnormal ECG When compared with ECG of 05-AUG-2021 04:04, (unconfirmed) No significant change was found Confirmed by Justen Horner ([id number]) on 08/05/2021 11:45:53 AM Referred By: REFERRED SELF Confirmed By:Justen Horner
--- NOTE | 2021-08-05 13:13 | XCELERA ---
[id number] \\[id number]
[2021-08-05] MEDS: METOPROLOL TARTRATE 25 MG TAB PO SCH ×2 (13:30→20:32)
[2021-08-05] MEDS: DORZOLAMIDE HCL 2% OPH SOLN 10 ML BTL OPB SCH ×2 (13:31→20:34)
[2021-08-05] MEDS: FUROSEMIDE 40 MG/4 ML VIAL IV SCH (17:19)
[2021-08-05] MEDS: ATORVASTATIN 40 MG TAB PO SCH (20:32)
[2021-08-05] MEDS: APIXABAN 5 MG TABLET PO SCH (20:32)
[2021-08-05] MEDS: CHOLECALCIFEROL 1,000 UNITS 25 MCG TAB PO SCH (20:33)
[2021-08-05] MEDS: CALCIUM 600MG + VIT D 400 IU TAB PO SCH (20:33)
[2021-08-05] MEDS: AMITRIPTYLINE HCL 25 MG TAB PO SCH (20:33)
[2021-08-05] MEDS: ASPIRIN 81 MG ECTAB PO SCH (20:34)
[2021-08-05] MEDS: LATANOPROST 0.005% OP SOLN 2.5 ML BTL OPB SCH (20:34)
[2021-08-05] MEDS: CEROVITE ADV FORMULA TAB PO SCH (20:35)
[2021-08-05] MEDS ORDERED: METOPROLOL TARTRATE 25 MG TAB PO SCH (21:00)
[2021-08-06] MEDS: APIXABAN 5 MG TABLET PO SCH ×2 (08:16→20:40)
[2021-08-06] MEDS: CYANOCOBALAMIN (B-12) 500 MCG TABLET PO SCH (08:16)
[2021-08-06] MEDS: CEROVITE ADV FORMULA TAB PO SCH ×2 (08:16→20:39)
[2021-08-06] MEDS: POTASSIUM CHLORIDE CRTAB 20 MEQ TABCR PO SCH (08:16)
[2021-08-06] MEDS: FUROSEMIDE 40 MG/4 ML VIAL IV SCH ×2 (08:16→17:00)
[2021-08-06] MEDS: METOPROLOL TARTRATE 25 MG TAB PO SCH ×3 (08:16→20:40)
[2021-08-06] MEDS: CALCIUM 600MG + VIT D 400 IU TAB PO SCH ×2 (08:16→20:40)
[2021-08-06] MEDS: amLODIPine BESYLATE 5 MG TAB PO SCH (08:16)
[2021-08-06] MEDS: PANTOprazole 40 MG TAB PO SCH (08:16)
[2021-08-06] MEDS: DORZOLAMIDE HCL 2% OPH SOLN 10 ML BTL OPB SCH ×3 (08:17→20:40)
--- NOTE | 2021-08-06 09:34 | XRay Report ---
XR chest 1V portable HISTORY: neck swelling, shortness of breath COMPARISON: Chest 08/05/2021. FINDINGS: No pneumothorax. Bilateral calcified pleural plaques are again noted. There are low lung vo lumes with chronic elevation of the right hemidiaphragm. The heart remains mildly enlarged. Bibasilar linear densities favor subsegmental atelectasis. No evidence for pulmonary edema. No new focal lung consolidations identified. IMPRESSION: No change in the cardiomegaly and calcified pleural plaques. ACT 112: Negative or not required by law. Electronically signed by: Bryce Gutiérrez M.D. 08/06/2021 9:33 AM
[2021-08-06 10:28] LABS: Hematocrit (blood only) 44.2 % (42-52); Hemoglobin 15.2 g/dL (14.0-18.0); Mean Corpuscular Hemoglobin 32.5 pg (25-34); Mean Corpuscular Hgb Conc 34.4 g/dL (32-36); Mean Corpuscular Volume 94.6 fL (80-100); Mean Platelet Volume 9.4 fL (7.4-10.4); Platelet Count 176 K/uL (130-400); RDW Coefficient of Variation 13.8 % (11.5-14.5); RDW Standard Deviation 47.4 fL (36.4-46.3); Red Blood Count 4.67 M/uL (4.7-6.1); White Blood Count 8.63 K/uL (4.8-10.8)
[2021-08-06 10:45] LABS: BUN Creatinine Ratio 24.3 (10-20); Calcium 9.2 mg/dl (8.5-10.1); Creatinine Clr Calc Pharmacy 83.6 ml/min; Est GFR (African American) 103.1 ml/min; Potassium 3.7 mmol/L (3.5-5.1)
--- NOTE | 2021-08-06 17:36 | Hospitalist Progress Note ---
Date of Service August 06, 2021 Assessment & Plan (1) Dyspnea: Plan: Patient is here with SOB s/p cholescystectomy. Maybe multifactorial.perhaps has a component of COPD Patient normally not on oxygen at home, at one moment yesterday required 6 liters. Improved after starting IV lasix 40 mg IV BID. currently on 3 liters nasal cannula. Echo shows hyperdynamic left ventricle. hold off cardio consult: after curbisde. creatinine is stable in AM. 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 Bili is mildly elevated and INR is mildy elevated. (3) Anxiety: Plan: resume home meds (4) Hypoxia: Plan: likely from fluid overload. (5) Atrial flutter: Plan: on eliquis BID. currently in sinus tach (6) Delirium: Plan: Patient is becoming restless at change of shift. will order one dose of olanzapine 2.5 mg PO X1. Admission and Anticipated Discharge Date Admission Date: August 05, 2021 Subjective Patient's main complaint today is his upper thoracic back pain. Patient reports he is breathing better. No medical interventions overnight by night-team. Review of Systems Constitutional: no fever and no sweats Eyes: no blind spots Ear, Nose, Mouth, Throat: no ear pain Respiratory: + cough Cardiovascular: no chest pain Gastrointestinal: no abdominal pain Genitourinary: no dysuria Musculoskeletal: + back pain Integumentary: no rash Neurologic: no gait abnormality Psychiatric: no behavioral changes Endocrine: no fatigue Hematologic / Lymphatic: no easy bleeding Allergy / Immunological: no GI upset with certain foods Physical Exam Constitutional: WD/WN, vitals as above Eyes: PERRL, conjunctivae normal, anicteric sclerae ENMT: external ear and nose normal, oropharynx normal Respiratory: improved breath sounds. Cardiovascular: Rate/Rhythm: regular rhythm and + tachycardic Gastrointestinal (Abdomen): normal bowel sounds, soft, nontender, no h epatosplenomegaly Musculoskeletal: no cyanosis or clubbing, extremities motor strength 5/5 Skin: no rashes, warm and dry Neurologic: PERRL, EOMI, accommodation nl, no face palsy, no dysarthria Psychiatric: A+Ox3, euthymic affect Lymphatic: no cervical or axillary lymphadenopathy Results & Data Results & Data ([facility]) Vital Signs (Past 12 Hours) Vital Signs Temp Pulse Pulse Resp BP Pulse Ox 08/06/21 15:10 36.7 C 103 H 22 128/82 93 08/06/21 11:19 36.9 C 110 H 15 130/85 93 08/06/21 07:23 36.9 C 110 H 15 148/89 H 92 PG Care Time/CCT Total # of Minutes Spent Total Time Spent with Patient: Total time spent is greater than 50% in coordination of care (as documented) at patient's floor/unit and/or counseling patient: Coding Level of Care Code 31518 Subseq Hosp Care Lvl 3 Diagnoses Dyspnea R06.02 Dyspnea type: shortness of breath 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
[2021-08-06] MEDS ORDERED: OLANZAPINE 2.5 MG TAB PO ONE (19:11)
[2021-08-06] MEDS: ASPIRIN 81 MG ECTAB PO SCH (20:39)
[2021-08-06] MEDS: ATORVASTATIN 40 MG TAB PO SCH (20:39)
[2021-08-06] MEDS: CHOLECALCIFEROL 1,000 UNITS 25 MCG TAB PO SCH (20:40)
[2021-08-06] MEDS: AMITRIPTYLINE HCL 25 MG TAB PO SCH (20:40)
[2021-08-06] MEDS: LATANOPROST 0.005% OP SOLN 2.5 ML BTL OPB SCH (20:41)
[2021-08-06 21:22] LABS: Hematocrit (blood only) 44.3 % (42-52); Hemoglobin 15.4 g/dL (14.0-18.0); Mean Corpuscular Hemoglobin 32.4 pg (25-34); Mean Corpuscular Hgb Conc 34.8 g/dL (32-36); Mean Corpuscular Volume 93.1 fL (80-100); Mean Platelet Volume 9.7 fL (7.4-10.4); Platelet Count 206 K/uL (130-400); RDW Coefficient of Variation 13.7 % (11.5-14.5); RDW Standard Deviation 46.7 fL (36.4-46.3); Red Blood Count 4.76 M/uL (4.7-6.1); White Blood Count 8.89 K/uL (4.8-10.8)
[2021-08-06 21:39] LABS: Albumin Level 3.7 gm/dl (3.4-5.0); BUN Creatinine Ratio 29.3 (10-20); Bilirubin Direct 0.3 mg/dl (0-0.2); Bilirubin,Total 1.1 mg/dl (0.2-1.0); Calcium 9.4 mg/dl (8.5-10.1); Creatinine Clr Calc Pharmacy 75.4 ml/min; Est GFR (African American) 98.9 ml/min; Est GFR (Non-African American) 85.3 ml/min; Magnesium 1.9 mg/dl (1.7-2.4); Phosphorus 3.3 mg/dl (2.5-4.9); Potassium 3.7 mmol/L (3.5-5.1); Total Protein 7.9 gm/dl (6.0-8.3)
[2021-08-06 22:05] LABS: Basophils # (auto) 0.02 K/uL (0-0.2); Basophils % (auto) 0.2 %; Eosinophils # (auto) 0.04 K/uL (0-0.5); Eosinophils % (auto) 0.4 %; Immature Granulocytes # (auto) 0.03 K/uL (0.00-0.02); Immature Granulocytes % (auto) 0.3 %; Lymphocytes # (auto) 1.78 K/uL (1.2-3.4); Monocytes # (auto) 1.16 K/uL (0.11-0.59); Neutrophils # (auto) 5.86 K/uL (1.4-6.5); Neutrophils % (auto) 66.1 %
[2021-08-06] MEDS ORDERED: LORazepam 2 MG/1 ML VIAL IV STA (22:15)
[2021-08-06 22:38] LABS: Appearance Urine Clear (Clear); Bilirubin Urine Negative (Negative); Blood Urine Negative (Negative); Color Urine Yellow; Glucose Urine UA Negative (Negative); Ketones Urine Negative (Negative); Leukocyte Esterase Urine Negative (Negative); Nitrite Urine Negative (Negative); Protein Urine Negative (Negative); Specific Gravity Urine 1.014 (1.000-1.030); Urobilinogen Urine Negative (Negative)
[2021-08-07] MEDS: LORazepam 2 MG/1 ML VIAL IV PRN (07:01)
[2021-08-07] MEDS: FUROSEMIDE 40 MG/4 ML VIAL IV SCH (08:40)
[2021-08-07] MEDS: DORZOLAMIDE HCL 2% OPH SOLN 10 ML BTL OPB SCH ×3 (08:45→19:59)
[2021-08-07] MEDS: POTASSIUM CHLORIDE CRTAB 20 MEQ TABCR PO SCH (08:53)
[2021-08-07] MEDS: CALCIUM 600MG + VIT D 400 IU TAB PO SCH ×2 (08:53→19:58)
[2021-08-07] MEDS: APIXABAN 5 MG TABLET PO SCH ×2 (08:53→19:58)
[2021-08-07] MEDS: CYANOCOBALAMIN (B-12) 500 MCG TABLET PO SCH (08:53)
[2021-08-07] MEDS: CEROVITE ADV FORMULA TAB PO SCH ×2 (08:53→19:57)
[2021-08-07] MEDS: METOPROLOL TARTRATE 25 MG TAB PO SCH ×3 (08:53→19:57)
[2021-08-07] MEDS: amLODIPine BESYLATE 5 MG TAB PO SCH (08:53)
[2021-08-07] MEDS: PANTOprazole 40 MG TAB PO SCH (08:53)
[2021-08-07 16:45] LABS: Hematocrit (blood only) 42.5 % (42-52); Hemoglobin 14.9 g/dL (14.0-18.0); Mean Corpuscular Hemoglobin 32.6 pg (25-34); Mean Corpuscular Hgb Conc 35.1 g/dL (32-36); Mean Platelet Volume 9.3 fL (7.4-10.4); Platelet Count 186 K/uL (130-400); RDW Coefficient of Variation 13.5 % (11.5-14.5); RDW Standard Deviation 46.1 fL (36.4-46.3); Red Blood Count 4.57 M/uL (4.7-6.1); White Blood Count 8.59 K/uL (4.8-10.8)
[2021-08-07 17:18] LABS: BUN Creatinine Ratio 32.5 (10-20); Creatinine Clr Calc Pharmacy 74.5 ml/min; Est GFR (African American) 98.4 ml/min; Est GFR (Non-African American) 84.9 ml/min; Potassium 3.6 mmol/L (3.5-5.1)
[2021-08-07] MEDS: ASPIRIN 81 MG ECTAB PO SCH (19:56)
[2021-08-07] MEDS: ATORVASTATIN 40 MG TAB PO SCH (19:56)
[2021-08-07] MEDS: AMITRIPTYLINE HCL 25 MG TAB PO SCH (19:56)
[2021-08-07] MEDS: CHOLECALCIFEROL 1,000 UNITS 25 MCG TAB PO SCH (19:59)
[2021-08-07] MEDS: LATANOPROST 0.005% OP SOLN 2.5 ML BTL OPB SCH (20:00)
--- NOTE | 2021-08-07 20:31 | Hospitalist Progress Note ---
Date of Service August 07, 2021 Assessment & Plan (1) Dyspnea: Plan: Patient is here with SOB s/p cholescystectomy. Maybe multifactorial.perhaps has a component of COPD Patient normally not on oxygen at home, at one moment required 6 liters. Now on room air. Improved after starting IV lasix 40 mg IV BID. Will hold further lasix. Echo shows hyperdynamic left ventricle. hold off cardio consult creatinine is stable in AM. Reviewed ECHO: no signs of pulmonary shunts. 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 Bili is mildly elevated and INR is mildy elevated. ammonia is negative. (3) Anxiety: Plan: resume home meds (4) Hypoxia: Plan: likely from fluid overload. (5) Atrial flutter: Plan: on eliquis BID. currently in sinus tach (6) Delirium: Plan: Hospital acquired delirium Received lorazepam overnight will hold benzos as this may worsen delirium. will continue using zyprexa if needed. patient calms down with reorientation Admission and Anticipated Discharge Date Admission Date: August 05, 2021 Subjective Patient remains confused, but is able to have a conversation. Patient understands he is in the hospital. Patient denies any new complaints. Review of Systems Review of Systems: All systems reviewed & are unremarkable except as noted in HPI & below Physical Exam Constitutional: WD/WN, vitals as above Eyes: PERRL, conjunctivae normal, anicteric sclerae ENMT: external ear and nose normal, oropharynx normal Respiratory: normal respiratory effort, lungs clear to auscultation + respiratory distress and + uses accessory muscles Auscultation: + rales Cardiovascular: Rate/Rhythm: regular rhythm and + tachycardic Gastrointestinal (Abdomen): normal bowel sounds, soft, nontender, no hepatosplenomegaly Musculoskeletal: no cyanosis or clubbing, extremities motor strength 5/5 Skin: no rashes, warm and dry Neurologic: PERRL, EOMI, accommodation nl, no face palsy, no dysarthria Psychiatric: A+Ox3, euthymic affect Lymphatic: no cervical or axillary lymphadenopathy Results & Data [facility]) Vital Signs (Past 12 Hours) Vital Signs Temp Pulse Pulse Resp BP BP Pulse Ox 08/07/21 18:59 36.5 C 106 H 18 121/72 90 08/07/21 14:20 103 H 04/25/22 11:22 36.8 C 120 H 20 105/72 91 08/07/21 11:00 Pulse Ox 08/07/21 18:59 08/07/21 14:20 08/07/21 11:22 08/07/21 11:00 91 PG Care Time/CCT Total # of Minutes Spent Total Time Spent with Patient: Total time spent is greater than 50% in coordination of care (as documented) at patient's floor/unit and/or counseling patient: Coding Level of Care Code 66223 Subseq Hosp Care Lvl 3 Diagnoses Dyspnea R06.02 Dyspnea type: shortness of breath 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
[2021-08-08] MEDS: METOPROLOL TARTRATE 25 MG TAB PO SCH ×3 (08:25→21:35)
[2021-08-08] MEDS: APIXABAN 5 MG TABLET PO SCH ×2 (08:25→21:34)
[2021-08-08] MEDS: PANTOprazole 40 MG TAB PO SCH (08:25)
[2021-08-08] MEDS: CEROVITE ADV FORMULA TAB PO SCH ×2 (08:25→21:36)
[2021-08-08] MEDS: amLODIPine BESYLATE 5 MG TAB PO SCH (08:25)
[2021-08-08] MEDS: DORZOLAMIDE HCL 2% OPH SOLN 10 ML BTL OPB SCH ×3 (08:25→21:34)
[2021-08-08] MEDS: CALCIUM 600MG + VIT D 400 IU TAB PO SCH ×2 (08:25→21:36)
[2021-08-08] MEDS: CYANOCOBALAMIN (B-12) 500 MCG TABLET PO SCH (08:25)
[2021-08-08] MEDS: POTASSIUM CHLORIDE CRTAB 20 MEQ TABCR PO SCH (11:16)
--- NOTE | 2021-08-08 21:06 | Hospitalist Progress Note ---
Date of Service August 08, 2021 Assessment & Plan (1) Dyspnea: Plan: Patient is here with SOB s/p cholescystectomy. Maybe multifactorial.perhaps has a component of COPD Patient normally not on oxygen at home, at one moment required 6 liters. Now on room air. Improved after starting IV lasix 40 mg IV BID. Will hold further lasix. Echo shows hyperdynamic left ventricle. hold off cardio consult creatinine is stable in AM. Reviewed ECHO: no signs of pulmonary shunts. Patient continues to do well. 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 Bili is mildly elevated and INR is mildy elevated. ammonia is negative. (3) Anxiety: Plan: resume home meds (4) Hypoxia: Plan: likely from fluid overload. (5) Atrial flutter: Plan: on eliquis BID. currently in sinus tach (6) Delirium: Plan: Hospital acquired delirium Resolved Prior to 08/08 below: Received lorazepam overnight will hold benzos as this may worsen delirium. will continue using zyprexa if needed. patient calms down with reorientation Plan: awaiting placement to rehab. Admission and Anticipated Discharge Date Admission Date: August 05, 2021 Subjective Patient no longer is confused, patient has no new symptoms. Review of Systems Review of Systems: All systems reviewed & are unremarkable except as noted in HPI & below Physical Exam Constitutional: WD/WN, vitals as above Eyes: PERRL, conjunctivae normal, anicteric sclerae ENMT: external ear and nose normal, oropharynx normal Respiratory: normal respiratory effort, lungs clear to auscultation Cardiovascular: Rate/Rhythm: regular rhythm and + tachycardic Gastrointestinal (Abdomen): normal bowel sounds, soft, nontender, no hepatosplenomegaly Musculoskeletal: no cyanosis or clubbing, extremities motor strength 5/5 Skin: no rashes, warm and dry Neurologic: PERRL, EOMI, accommodation nl, no face palsy, no dysarthria Psychiatric: A+Ox3, euthymic affect Lymphatic: no cervical or axillary lymphadenopathy Results & Data Results & Data ([facility]) Vital Signs (Past 12 Hours) Vital Signs Temp Pulse Pulse Resp BP Pulse Ox 08/08/21 19:35 36.6 C 99 H 17 141/79 H 94 08/08/21 16:00 105 H 08/08/21 12:30 36.6 C 101 H 18 116/72 91 08/08/21 10:44 92 PG Care Time/CCT Total # of Minutes Spent Total Time Spent with Patient: Total time spent is greater than 50% in coordination of care (as documented) at patient's floor/unit and/or counseling patient: Coding Level of Care Code 81807 Subseq Hosp Care Lvl 2 Diagnoses Dyspnea R06.02 Dyspnea type: shortness of breath 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
[2021-08-08] MEDS: AMITRIPTYLINE HCL 25 MG TAB PO SCH (21:35)
[2021-08-08] MEDS: CHOLECALCIFEROL 1,000 UNITS 25 MCG TAB PO SCH (21:35)
[2021-08-08] MEDS: ASPIRIN 81 MG ECTAB PO SCH (21:36)
[2021-08-08] MEDS: ATORVASTATIN 40 MG TAB PO SCH (21:36)
[2021-08-08] MEDS: LATANOPROST 0.005% OP SOLN 2.5 ML BTL OPB SCH (21:36)
[2021-08-09] MEDS: CEROVITE ADV FORMULA TAB PO SCH (08:30)
[2021-08-09] MEDS: CALCIUM 600MG + VIT D 400 IU TAB PO SCH (08:30)
[2021-08-09] MEDS: METOPROLOL TARTRATE 25 MG TAB PO SCH ×2 (08:30→13:51)
[2021-08-09] MEDS: amLODIPine BESYLATE 5 MG TAB PO SCH (08:30)
[2021-08-09] MEDS: PANTOprazole 40 MG TAB PO SCH (08:30)
[2021-08-09] MEDS: APIXABAN 5 MG TABLET PO SCH (08:31)
[2021-08-09] MEDS: DORZOLAMIDE HCL 2% OPH SOLN 10 ML BTL OPB SCH ×2 (08:31→13:51)
[2021-08-09] MEDS: CYANOCOBALAMIN (B-12) 500 MCG TABLET PO SCH (08:31)
[2021-08-09] MEDS: POTASSIUM CHLORIDE CRTAB 20 MEQ TABCR PO SCH (08:33)
[2021-08-09] MEDS: LORazepam 2 MG/1 ML VIAL IV PRN (08:34)
--- NOTE | 2021-08-15 16:35 | Discharge Summary ---
Date of Service August 09, 2021 Admission HPI Per Admitting Provider This is a pleasant 75 yo male with PMH of A flutter, remote tobacco history and recent cholecystectomy. Patient was found to be SOB this morning and 911 was called. Patient was found to be hypoxic. Patient had not been taking his anticoagulation and was to start it today. Patient also is complaining of orthopnea Patient denies any chest pain, fever, chills, nausea, vomiting, palpitations. Denies any recent leg swelling or calf tenderness. Principal Diagnosis dypsnea Discharge Exam Constitutional: WD/WN, vitals as above Eyes: PERRL, conjunctivae normal, anicteric sclerae ENMT: external ear and nose normal, oropharynx normal Respiratory: normal respiratory effort, lungs clear to auscultation Cardiovascular: Rate/Rhythm: regular rhythm and + tachycardic Gastrointestinal (Abdomen): normal bowel sounds, soft, nontender, no hepatosplenomegaly Musculoskeletal: no cyanosis or clubbing, extremities motor strength 5/5 Skin: no rashes, warm and dry Neurologic: PERRL, EOMI, accommodation nl, no face palsy, no dysarthria Psychiatric: A+Ox3, euthymic affect Lymphatic: no cervical or axillary lymphadenopathy Discharge Data Allergies Allergy/AdvReac Type Severity Reaction Status Date / Time codeine AdvReac Intermediate NAUSEA, Verified 08/05/21 07:27 BLOOD PRESSURE DROPPED, DIZZINESS Consultations 08/05/21 08:34 ED Decision to Admit Stat Ordered Studies 08/05/21 04:38 CT angio chest PE protocol Urgent Hospital Course (1) Dyspnea: Patient is here with SOB s/p cholescystectomy. Maybe multifactorial.perhaps has a component of COPD Patient normally not on oxygen at home, at one moment required 6 liters. Now on room air. Improved after starting IV lasix 40 mg IV BID. Will hold further lasix. Echo shows hyperdynamic left ventricle. hold off cardio consult creatinine is stable in AM. Reviewed ECHO: no signs of pulmonary shunts. Patient continues to do well, will discharge. Perhaps fluid overload after surgery. Will hold off diuretics as an outpatient. (2) 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: as noted in the history. Bili is mildly elevated and INR is mildy elevated. ammonia is negative. (3) Anxiety: resume home meds (4) Hypoxia: likely from fluid overload. (5) Atrial flutter: on eliquis BID. currently in sinus tach (6) Delirium: Hospital acquired delirium Resolved Prior to 08/08 below: Received lorazepam overnight will hold benzos as this may worsen delirium. will continue using zyprexa if needed. patient calms down with reorientation awaiting placement to rehab. Total Time Total Time Spent Total Time Spent (In Minutes): 32 Discharge Plan Discharge Items Patient Disposition: Transfer Inpatient Rehab Fac Reason For Visit: ACUTE HYPOXIC RESPITORY FAILURE Discharge Diagnosis: acute respiratory failure Activity: Resume your previous activity Non-emergency contact: Primary Care Provider Call non-emergency contact if: you have any medication questions Follow-up/Referrals: Jordan Heard, ABRAHAMC [Primary Care Provider] - Diet: Heart Healthy Addtl Attending Provider Instructions: You have been hospitalized for an acute medical problem. During your stay at [facility], we have made an effort to correct the problem that brought you to the hospital while keeping you as comfortable as possible. Medications were used to bring your condition under control and your discharge instructions will include directions for any medications you should take after leaving the hospital. Please make sure you see your Primary Care Provider as part of your follow up plan. Pending Studies at Discharge: No Stand-Alone Forms: My [facility] Skilled Items Patient informed of condition?: Yes DNR: No Discharge Level of Care: Skilled Communicable Disease: No Discharge Prognosis: Stable Lines: None Urinary Catheter: No Medications and DC Order Prescriptions: Continued latanoprost 0.005 % Drops 1 drp OPB QPM RF: 0 cyanocobalamin (vitamin B-12) [Vitamin B-12] 1,000 mcg Tablet 500 mcg PO QAM RF: 0 amlodipine 5 mg Tablet 5 mg PO QAM RF: 0 cholecalciferol (vitamin D3) [Vitamin D3] 1,000 unit Capsule 1,000 unit PO QPM RF: 0 nitroglycerin [Nitrostat] 0.4 mg Tablet, Sublingual 0.4 mg sublingual DIRECTED PRN (Reason: Chest Pain) RF: 0 PreserVision AREDS [id number] Tablet 1 tab PO BID RF: 0 dorzolamide (PF) 2 % Drops 1 drp OPB TID RF: 0 Calcium 600 + D(3) 600 mg calcium- 200 unit Capsule 1 cap PO BID RF: 0 amitriptyline 25 mg tablet 25 mg PO HS RF: 0 aspirin 81 mg Tablet,Delayed Release (Dr/Ec) 81 mg PO HS RF: 0 sennosides-docusate sodium [Colace 2-In-1] 8.6-50 mg tablet 1 - 4 tab-cap PO UD PRN (Reason: Constipation) RF: 0 pantoprazole [Protonix] 40 mg tablet,delayed release (DR/EC) 40 mg PO QAM RF: 0 metoprolol tartrate 50 mg Tablet 25 mg PO BID RF: 0 atorvastatin 40 mg Tablet 40 mg PO HS RF: 0 docusate sodium [Colace] 100 mg Capsule 100 mg PO TID PRN (Reason: Constipation) RF: 0 apixaban 5 mg Tablet 5 mg PO BID RF: 0 Discharge Orders: Discharge Order (Routine); Ordered 08/09/21 Ordered By: Ari Her Admission Data Admit Date/Time: 08/05/21 10:03 Attending Provider: Ari Her Admit Provider: Ari Her Primary Care Provider: Jordan Heard Other Providers: Ari Her ; [facility] ; [facility] Other Interventions: Discharge Summary Assessment (RN) Last Done: 08/09/21 14:50 Coding Level of Care Code D/C DAY MANAGEMENT >30 MINS Diagnoses Dyspnea R06.02 Dyspnea type: shortness of breath 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
== END 2021-08-09 15:41 | DRG 640 ==
LOC: ED 02:23 → 2S 10:03

== ENCOUNTER 2022-07-31 05:07 | Observation (INO) ==
--- NOTE | 2022-07-02 15:08 | PAT Medication Instructions ---
Medication Instructions Date of Service July 02, 2022 Home Medications Medication Instructions Recorded polyethylene glycol 3350 17 gram 17 g PO DAILY constipation #30 ea 10/11/21 oral powder packet (Miralax) cholecalciferol (vitamin D3) 25 mcg (1,000 unit) capsule (Vitamin D3) 1,000 unit PO QPM cyanocobalamin (vitamin B-12) 1,000 mcg tablet (Vitamin B-12) 500 mcg PO QAM latanoprost 0.005 % eye drops 1 drp OPB QPM nitroglycerin 0.4 mg sublingual tablet (Nitrostat) 0.4 mg sublingual UD PRN Chest Pain calcium carbonate 600 mg-vitamin D3 5 mcg (200 unit) capsule (Calcium 600 + D(3)) 1 cap PO BID dorzolamide (PF) 2 % (PF) eye drops 1 drp OPB TID PreserVision AREDS 1 tab PO BID metoprolol tartrate 50 mg tablet 25 mg PO BID pantoprazole 40 mg tablet,delayed release (Protonix) 40 mg PO QAM heartburn apixaban 5 mg tablet 5 mg PO BID docusate sodium 100 mg capsule (Colace) 100 mg PO TID PRN Constipation polyethylene glycol 3350 17 gram oral powder packet (Miralax) 17 g PO DAILY constipation amlodipine 5 mg tablet 5 mg PO QAM diazepam 5 mg tablet 5 mg PO QAM finasteride 5 mg tablet 5 mg PO QAM food supplemt, lactose-reduced (Ensure oral liquid) 1 ea PO DAILY methyl salicylate 10 % topical cream 1 applic topical BID mirtazapine 15 mg tablet 15 mg PO HS Continue as directed nitroglycerin 0.4 mg sublingual tablet (Nitrostat) 0.4 mg sublingual UD PRN Chest Pain (if needed) ASK your prescriber and surgeon apixaban 5 mg tablet 5 mg PO BID (in order for spinal anesthesia, Apixaban needs to be stopped 72 hours/3 days before surgery. Please check if okay with doctor that prescribes this to you) STOP taking 2 weeks before surgery (or as soon as possible if surgery is within 2 weeks) PreserVision AREDS 1 tab PO BID STOP taking 24 hours before surgery methyl salicylate 10 % topical cream 1 applic topical BID DO NOT take the morning of surgery cyanocobalamin (vitamin B-12) 1,000 mcg tablet (Vitamin B-12) 500 mcg PO QAM calcium carbonate 600 mg-vitamin D3 5 mcg (200 unit) capsule (Calcium 600 + D(3)) 1 cap PO BID docusate sodium 100 mg capsule (Colace) 100 mg PO TID PRN Constipation polyethylene glycol 3350 17 gram oral powder packet (Miralax) 17 g PO DAILY constipation food supplemt, lactose-reduced (Ensure oral liquid) 1 ea PO DAILY Take morning of surgery With a small sip of water, OTHERWISE NOTHING TO EAT OR DRINK AFTER MIDNIGHT: dorzolamide (PF) 2 % (PF) eye drops 1 drp OPB TID metoprolol tartrate 50 mg tablet 25 mg PO BID pantoprazole 40 mg tablet,delayed release (Protonix) 40 mg PO QAM heartburn amlodipine 5 mg tablet 5 mg PO QAM diazepam 5 mg tablet 5 mg PO QAM finasteride 5 mg tablet 5 mg PO QAM Take evening before surgery cholecalciferol (vitamin D3) 25 mcg (1,000 unit) capsule (Vitamin D3) 1,000 unit PO QPM latanoprost 0.005 % eye drops 1 drp OPB QPM calcium carbonate 600 mg-vitamin D3 5 mcg (200 unit) capsule (Calcium 600 + D(3)) 1 cap PO BID dorzolamide (PF) 2 % (PF) eye drops 1 drp OPB TID metoprolol tartrate 50 mg tablet 25 mg PO BID docusate sodium 100 mg capsule (Colace) 100 mg PO TID PRN Constipation (if needed) polyethylene glycol 3350 17 gram oral powder packet (Miralax) 17 g PO DAILY constipation mirtazapine 15 mg tablet 15 mg PO HS Other Notes If you have any questions please call us at [phone] or [phone] or [phone] or [phone]
--- NOTE | 2022-07-06 13:48 | Anesthesiology Consultation ---
Date of Service July 06, 2022 Assessment & Plan (1) Encounter for pre-operative examination: Plan - awaiting cardiology clearance, [facility] cardiology. - Case discussed with Dr. Johnston in detail who advised patient have cardiology pre-op evaluation given history and dyspnea as reported above. Surgeon's office made aware. Pt made aware, follows with [facility]. - Outpatient joint assessment: Patient is currently scheduled for inpatient pa [facility]. If re-evaluated pending system levels during current pandemic/surgeon requests outpatient pathway, patient is not acceptable candidate for outpatient joint program from anesthesia standpoint. Chart Review Chart Review: Pending: Refer to Additional Notes / Consult section and Patient seen in Pre Admission Testing Teaching & Discussion Pre-Anesthesia Teaching/Discussion Notes: Instructed NPO after midnight before surgery, except medications with 15 cc of water. Medication instructions provi ded according to the PAT guidelines. History Surgery Operation Date: 07/31/22 12:10 Proposed Procedures p Left Total Hip Arthroplasty - Camron Trevino MD Height/Weight Height: 5 ft 9 in Weight: 83.915 kg Allergies Allergy/AdvReac Type Severity Reaction Status Date / Time codeine AdvReac Intermediate NAUSEA, Verified 07/06/22 10:06 BLOOD PRESSURE DROPPED, DIZZINESS lorazepam [From Ativan] AdvReac Mild Confusion Verified 07/06/22 10:06 Medications Home Medications Medication Instructions Recorded Confirmed Last Taken cholecalciferol (vitamin D3) 25 1,000 unit PO QPM 11/13/18 07/06/22 08/04/21 mcg (1,000 unit) capsule (Vitamin D3) cyanocobalamin (vitamin B-12) 500 mcg PO QAM 11/13/18 07/06/22 08/04/21 1,000 mcg tablet (Vitamin B-12) latanoprost 0.005 % eye drops 1 drp OPB QPM 11/13/18 07/06/22 08/04/21 nitroglycerin 0.4 mg sublingual 0.4 mg sublingual UD PRN Chest Pain 09/14/19 07/06/22 08/10/20 tablet (Nitrostat) calcium carbonate 600 mg-vitamin 1 cap PO BID 09/29/19 07/06/22 08/04/21 D3 5 mcg (200 unit) capsule (Calcium 600 + D(3)) dorzolamide (PF) 2 % (PF) eye drops 1 drp OPB TID 09/29/19 07/06/22 08/04/21 vitamins A,C,Q-nsdp-pqvfuv 2,148 1 tab PO BID 12/31/19 07/06/22 08/04/21 mcg-113 mg-45 mg-17.4 mg tablet (PreserVision AREDS) metoprolol tartrate 50 mg tablet 25 mg PO BID 06/03/21 07/06/22 08/04/21 pantoprazole 40 mg tablet,delayed 40 mg PO QAM heartburn 07/19/21 07/06/22 08/04/21 release (Protonix) apixaban 5 mg tablet 5 mg PO BID 08/05/21 07/06/22 Unknown docusate sodium 100 mg capsule 100 mg PO TID PRN Constipation 08/05/21 07/06/22 08/04/21 (Colace) polyethylene glycol 3350 17 gram 17 g PO DAILY constipation #30 ea 10/11/21 07/06/22 Unknown oral powder packet (Miralax) finasteride 5 mg tablet 5 mg PO QAM 07/02/22 07/06/22 Unknown food supplemt, lactose-reduced 1 ea PO DAILY 07/02/22 07/06/22 Unknown (Ensure oral liquid) methyl salicylate 10 % topical 1 applic topical BID 07/02/22 07/06/22 Unknown cream mirtazapine 15 mg tablet 15 mg PO HS 07/02/22 07/06/22 Unknown Past Medical History Medical History (Updated 07/06/22 @ 14:00 by Clara Guevara PA-C) Arthritis of left hip Asbestosis Atrial flutter ELIQUIS BID Coronary atherosclerosis of [place] coronary vessel Mild CAD per 2016 cath per cardio records No hx of stents or bypass GERD (gastroesophageal reflux disease) controlled, stable per pt Glaucoma AND MACULAR DEGENERATION; legally blind Hiatal hernia HTN (hypertension) controlled, stable per pt Hyperlipidemia 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 Exercise / Class Metabolic Activity II 4-5 Yardwork/Stairs/Walk up hill (shortness of breath with 1 FOS ; denies chest discomfort, notes correlation to reduced physical activity) Past Family History Family History Father Cancer Mother Heart disease Past Surgical History Surgical History H/O cardiac catheterization 2009, 2012, 2016-[facility]; f/u [facility] in [place] History of colonoscopy History of esophagogastroduodenoscopy (EGD) History of herniorrhaphy X 2 Hx laparoscopic cholecystectomy (08/03/21) Laparoscopic Cholecystectomy and Liver Biopsy- Panchito Mena, DO Grade 2 view, MCA 3, ETT 7.5. Hx of cystoscopy Past Anesthesia History No Hx of Anesthesia Complications and No Family Hx of Anesthesia Complications History of PONV No Hx of PONV and No Hx of Motion Sickness Social History Smoking Status: Never smoker tobacco type: cigarettes Do You Dip or Chew Tobacco: No Smoking End Date: 1998 Hx Alcohol Use: Yes Alcohol type: beer alcohol intake frequency: holidays/special occasions only Hx Substance Use: No substance use type: does not use Review of Systems Occasional snoring, denies witnessed apneas. Rare palpitations, chronic, denies change or worsening. Patient denies chest pain, fever, chills, cough, or wheezing. Physical Exam Vital Signs Vitals BP 134/78 P 79 SP02 95% on RA RESP 17 Physical Full cervical extension range of motion without pain TMD 3.5 finger breadths Mallampati Score 3 Dentition: several crowns and removable lower front partial; denies chipped or loose teeth, caps Lungs: normal respiratory effort. Clear throughout to auscultation, no adventi tious breath sounds Cardiac: regular rate and rhythm, no murmurs noted Carotid arteries: negative bruit bilat Lab Results Anesthesia Preop Results Results Anesthesia Widget: WBC 6.01 K/ul (4.8-10.8) 05/17/22 Hgb 16.2 g/dl (14.0-18.0) 05/17/22 Hct 46.1 % (42.0-52.0) 05/17/22 Plt 153 K/uL (130-400) 05/17/22 Na 136 mmol/L (136-145) 05/17/22 K 4.3 mmol/L (3.5-5.1) 05/18/22 Cl 105 mmol/L (98-107) 05/17/22 CO2 23 mmol/L (21-32) 05/17/22 BUN 14 mg/dl (6-23) 05/17/22 Creat 0.86 mg/dl (0.6-1.4) 05/17/22 Glucose Level 134 mg/dl (70-99(Fasting)) H 05/17/22 PT 12.2 Seconds (9.0-12.0) H 07/06/22 PTT 30.5 Seconds (21.0-31.0) 07/06/22 INR 1.2 (0.9-1.1) H 07/06/22 TSH 5.010 uIu/ml (0.300-4.500) H 05/17/22 Blood Type O Positive 07/06/22 Antibody Screen NEGATIVE 07/06/22 Testing Electrocardiogram Date: 05/17/22 NSR, rate 99 bpm Possible LA enlargement Nonspecific ST and T wave abnormality Echocardiogram Date: 08/05/21 EF > 70% Mild cLVH No LV regional wall motion abnormalities No significant valve pathology Stress Test Date: 10/25/21 1. Negative myocardial perfusion for significant Lexiscan induced ischemia. 2. Small LV cavity size, normal function. LVEF 92% with no regional wall motion abnormalities. 3. Non-diagnostic stress ECG due to inability to reach target HR with Lexiscan. MPHR 82% Cervical Spine Date: 12/07/21 CT 1. There is no evidence of fracture or subluxation involving the cervical spine. 2. Osteopenia and spondylotic change as above. Other Testing Head CT 12/07/21 No acute intracranial hemorrhage, no evidence of acute territorial infarction or other acute intracranial disease process. Chest CTA 08/05/21 1. No pulmonary emboli identified. 2. Bilateral lower lobe airspace opacities with volume loss which favors atelectasis. No consolidation to suggest pneumonia. 3. Evidence for asbestos related pleural disease. 4. Moderate cardiomegaly. 5. Hepatic steatosis with suspected cirrhosis. Neck CTA 09/04/20 1. No significant stenosis, occlusion, or aneurysm within the [place] of [place]. 2. No significant stenosis, occlusion, or dissection identified within the carotid or vertebral arteries. COVID-19 Risk Screen Screening Information COVID-19 Screen Date: 07/06/22 Exposure 21 Days Family/Household +COVID Last 21 Days: No Exposure 10 Days Any COVID Exposure Last 10 Days: No Symptoms Last 10 Days Experienced COVID Sx Last 10 Days: No + COVID 0-90 Days COVID + in Last 0-90 Days: No
[2022-07-31] MEDS ORDERED: FAMOTIDINE 20 MG TAB PO SCH (06:00)
[2022-07-31] MEDS ORDERED: LR 60ML/HR IV SCH (06:00)
[2022-07-31] MEDS ORDERED: CeleBREX 200 MG CAP PO SCH (06:00)
[2022-07-31] MEDS ORDERED: METOCLOPRAMIDE HCL 10 MG TABLET PO SCH (06:00)
[2022-07-31] MEDS ORDERED: LR 500ML BOLUS, THEN 15ML/HR IV SCH (06:00)
[2022-07-31] MEDS ORDERED: TRANEXAMIC ACID 1,000 MG **IV Pre-op IV SCH (06:00)
[2022-07-31] MEDS ORDERED: ceFAZolin 2000MG 2,000 MG/15 ML SYR IV SCH (06:00)
[2022-07-31] MEDS ORDERED: DEXAMETHASONE SOD INJ 4 MG/ML VIAL IV SCH (06:00)
[2022-07-31] MEDS ORDERED: BUPIVACAINE LIPOSOME/PF 266 MG, BUPIVACAINE/EPINEPHRINE 50 ML, SODIUM CHLORIDE 0.9% PF ... INFIL SCH (06:00)
[2022-07-31] MEDS ORDERED: ACETAMINOPHEN 500 MG TAB PO SCH (06:00)
[2022-07-31] MEDS ORDERED: BUPIVACAINE 0.5 % 5 MG/1 ML PF 10ML VIAL ONE (06:26)
[2022-07-31] MEDS ORDERED: ONDANSETRON INJ 2 MG/ML 2 ML VIAL IV PRN ×2 (06:35→11:29)
[2022-07-31] MEDS ORDERED: ATROPINE SULFATE 0.1 MG/ML 10ML SYR IV PRN (06:35)
[2022-07-31] MEDS ORDERED: ePHEDrine sulfate 50 MG/ML AMP IV PRN (06:35)
[2022-07-31] MEDS ORDERED: fentaNYL citrate PF 100 MCG/2 ML VIAL IV PRN (06:35)
[2022-07-31] MEDS ORDERED: BUPIVACAINE/EPINEPHRINE 0.5% MPF 1:200,000 30 ML VIAL ONE (06:41)
--- NOTE | 2022-07-31 06:58 | History & Physical Bridge Note ---
Date of Service July 31, 2022 History & Physical Bridge Note I have examined the patient, reviewed the History & Physical and in the interval since the performance of the History & Physical I have noted the following changes of clinical significance: no changes noted
[2022-07-31] MEDS ORDERED: PROPOFOL IV EMULSION 10 MG/ML 100 ML VIAL IV ONE (08:13)
--- NOTE | 2022-07-31 08:38 | Operative Report ---
PG Post Operative Report Pre & Post Diagnosis Operation Date: 07/31/22 07:00 Pre-Op Diagnosis: Left Hip Degenerative Joint Disease Post-Op Diagnosis: Left Hip Degenerative Joint Disease I identified the patient and participated in the time-out.: Yes Procedure Operation Date: 07/31/22 07:00 Actual Procedures p Left Total Hip Arthroplasty(Left) - Camron Trevino MD Surgeon Camron Trevino MD Medical Record Consultant Reece Mg PA-C Estimated Blood Loss 200 Findings Consistent with Post-Op Diagnosis Operative findings revealed advanced left hip DJD. Had grade 4 [id number] disease of the femoral head and acetabulum. Had a fairly large central medial acetabular osteophyte as well as some anterior acetabular osteophytes. Moderate-sized joint effusion. Specimens Left femoral head sent for pathology Anesthesia Type Spinal MAC Complications none Disposition Accompanied Patient To Recovery: No Indications Patient is 76-year-old fairly active gentleman has had a several year history of increasing left hip pain discomfort that is gradually got worse over time. He failed conservative measures. X-rays show advanced left hip arthritis. He elected proceed with surgical treatment. The patient does have multiple medical comorbidities and was medically optimized prior to surgery. Description of Procedure Operative implants consist of: 1. Biomet G7 size 54 mm acetabular shell. 2. [place] hole eliminator. 3. 6.5 cancellous acetabular screws 1 of 35 mm in length and 1 of 30 mm length. 4. Highly cross-linked polyethylene liner with a 54 mm outer diameter 36 mm inner diameter. 5. DePuy Corail size 13 KLA femoral stem. 6. +5/36 mm ceramic articular ball. The patient was taken the operating, identified, placed on the operating table supine position. All contractors were appropriately padded. IV antibiotics tried by anesthesia team. Spinal anesthetic and been implemented holding area. Chen catheter was placed in sterile fashion. Patient then placed in the right lateral decubitus position. Axillary roll was placed. Stulberg hip positioner was used for positioning. Left hip and leg were then prepped and draped in usual sterile fashion. A posterior lateral approach the left hip was then performed through a curvilinear incision centered over the greater trochanter. Sharp dissection was carried through subcutaneous tissue down to level the IT band gluteal fascia. The IT band gluteal fascia were incised longitudinally in line with skin incision. The underlying greater bursa was excised. The piriformis and external rotators and the posterior hip joint capsule were then released from the posterior aspect the hip as a single layer. Great care was taken throughout the procedure protect the sciatic nerve at all times. Hip was internally rotated and dislocated. A femoral neck osteotomy cut was made with a Final Cut about 10 mm above the lesser trochanter. Femoral head was removed and sent for pathology. The femur was retracted anteriorly. Attention drawn the acetabulum. The acetabular labrum was excised. The pulmonary fat was excised. Sequential reaming the acetabular was then performed again with size 45 and progressing up to 53. I did reamed a little bit with a 54 reamer and then placed a 54 mm Biomet cup in about 40 degrees lateral opening and 20 degrees of anteversion. It was fixed with two 6.5 cancellous acetabular screws. A large anterior osteophyte was removed. Trial liner was placed. Attention drawn the femur. The proximal femur was entered with cookie-cutter followed by canal finder. Then broached beginning with size 8 and progressed up to a 13. We got excellent fit of 13. I trialed the hip and the hip was fully stable and leg lengths appeared appropriate and soft tissue tension seemed appropriate. We elect to place these implants. All trial implants were removed. [place] hole limiter was placed. Highly cross- linked polyethylene liner was placed. A size 13 KLA femoral stem was impacted in position. +5/36 mm ceramic articular ball was placed. Hip was located and once again found to be stable. Attention drawn to closing. Wound was irrigated karolina out some pulsatile lavage solution. We did inject locally with 60 cc of half percent Marcaine with epinephrine. Posterior capsule and external rotators were then repaired through drill holes in the posterior trochanter with #2 Tycron suture. The IT band gluteal fascia were then closed with #1 PDS suture running fashion. Subcutaneous tissues were closed in 2 layers with a deep layer #1 Vicryl suture and subcutaneous tissues with 2-0 Dexon suture in a buried interrupted fashion. Skin was closed skin radha. Leg was then cleaned and dried and sterile dressed with Xeroform, 4 fours, sterile ABD pad and foam tape was applied. Patient was then transferred to the recovery room in stable condition. Patient tolerated procedure well and there were no complications. Reece Mg, my physician cafe assistant, was present for the entire procedure. His assistance was essential and required for appropriate patient positioning, prepping and draping, surgical exposure, performing the technical details of the operation, placement the implants, closure of the wound, and placement of the sterile bandage. I attest to the content of the Intraoperative Record and any orders documented therein. Any exceptions are noted below.
[2022-07-31] MEDS ORDERED: NON-FORMULARY MEDICATION (Vitamins A,C,E-Zinc-Copper [Preservision Areds] 7,160-113-100 un PO SCH (11:29)
[2022-07-31] MEDS ORDERED: METOCLOPRAMIDE HCL INJ 5 MG/ML 2 ML VIAL IV PRN (11:29)
[2022-07-31] MEDS ORDERED: HYDROmorphone INJ 0.5 MG/0.5 ML SYR IV PRN (11:29)
[2022-07-31] MEDS ORDERED: MAGNESIUM HYDROXIDE SUSP 30 ML UDC PO PRN (11:29)
[2022-07-31] MEDS ORDERED: DOCUSATE SODIUM 100 MG CAP PO PRN (11:29)
[2022-07-31] MEDS ORDERED: ALUMINUM/MAGNESIUM SUSP 30 ML UDC PO PRN (11:29)
[2022-07-31] MEDS ORDERED: bisacodyL 10 MG SUPP PR PRN (11:29)
[2022-07-31] MEDS ORDERED: NITROGLYCERIN SL 0.4 MG/TAB TAB SL PRN (11:29)
[2022-07-31] MEDS ORDERED: NON-FORMULARY MEDICATION (Food Supplemt, Lactose-Reduced [Ensure] Liquid) PO SCH (11:29)
[2022-07-31] MEDS ORDERED: NALOXONE HCL 0.4 MG/1 ML VIAL/CARP IV PRN (11:29)
[2022-07-31] MEDS: CYANOCOBALAMIN (B-12) 500 MCG TABLET PO SCH (12:50)
[2022-07-31] MEDS: FINASTERIDE 5 MG TAB PO SCH (12:50)
[2022-07-31] MEDS: CALCIUM 600MG + VIT D 400 IU TAB PO SCH ×2 (12:50→20:42)
[2022-07-31] MEDS: POLYETHYLENE (MIRALAX) 17 GM PACK PO SCH (12:51)
[2022-07-31] MEDS: TAMSULOSIN HCL 0.4 MG CAP PO SCH (12:51)
[2022-07-31] MEDS: SODIUM CHLORIDE 0.9% 1000ML 1,000 ML IV SCH ×2 (12:55→22:34)
--- NOTE | 2022-07-31 12:58 | XRay Report ---
XR hip 1V LT w pelvis CLINICAL HISTORY: IN PACU - Post Surgical TECHNIQUE: 2 views of the left hip and single frontal view of the pelvis were obtained. Comparison: Comparison is made to pelvis radiograph 12/07/2021 FINDINGS: Patient is status post left total hip arthroplasty with expected postsurgical changes including soft tissue swelling and subcutaneous emphysema. Degenerative changes are seen in the right hip. IMPRESSION: Expected postoperative appearance status post placement of total hip arthroplasty. ACT 112: Negative or not required by law. Electronically signed by: Eligio Diego M.D. 07/31/2022 12:57 PM
[2022-07-31] MEDS: DOCUSATE SODIUM 100 MG CAP PO SCH ×2 (13:38→20:43)
[2022-07-31] MEDS: KETOROLAC TROMETHAMINE 15 MG/ML VIAL IV SCH ×2 (13:40→19:37)
[2022-07-31] MEDS: PANTOprazole 40 MG TAB PO SCH (13:40)
[2022-07-31] MEDS: MULTIVITAMIN TAB PO SCH (13:42)
[2022-07-31] MEDS: ACETAMINOPHEN 500 MG TAB PO SCH ×2 (13:42→20:42)
[2022-07-31] MEDS: DORZOLAMIDE HCL 2% OPH SOLN 10 ML BTL OPB SCH ×2 (13:43→20:44)
[2022-07-31] MEDS: ceFAZolin 2000MG 2,000 MG/15 ML SYR IV SCH ×2 (13:44→22:35)
--- NOTE | 2022-07-31 13:47 | Progress Notes ---
SUBJECTIVE: A 76-year-old gentleman postoperative from a left hip replacement. He is doing well. Just starting to get a little bit of pain in his hip. No chest pain or shortness of breath. Not feeling dizzy or lightheaded. OBJECTIVE: VITAL SIGNS: Temperature is 36.4. Vital signs are stable. GENERAL: Shows a pleasant, elderly male. He is sitting up in bed and looks comfortable, talking to his and eating lunch. LUNGS: Clear to auscultation. HEART: Has a regular rate and rhythm. ABDOMEN: Soft, nontender, nondistended. EXTREMITIES: Grossly neurovascularly intact except as follows. Examination of the left leg reveals the leg lengths to be equal. Dressing is clean, dry and intact. Thigh is soft and supple. He is neurologically intact. X-RAYS: X-rays of the left hip from recovery room are reviewed. It shows left uncemented hip replacement. Components looked to be in good position. No signs of problems. ASSESSMENT: A 76-year-old gentleman, postoperative from left hip replacement, doing well. Pain is controlled. Hip is located. He is neurologically intact. PLAN: 1. DVT prophylaxis includes thigh-high TEDs, SCDs. We will start him back on his Eliquis at a prophylactic dose starting 24 hours postop. He will be discharged back on his normal dose. 2. PT/OT, weightbear as tolerated. Left total hip protocol. 3. Pain control, doing okay with current pain regimen. 4. IV antibiotics x24 hours. 5. Disposition: Plan to discharge to home with some home health when recovered and medically stable. Job ID: [id number] [facility]
[2022-07-31] MEDS ORDERED: TRANEXAMIC ACID / 0.7% NACL 1,000 MG/100 ML BAG IV SCH (14:30)
--- NOTE | 2022-07-31 14:42 | Anesthesiology Progress Note ---
Date of Service July 31, 2022 Anesthesia Post Procedure Vital Signs Vital Signs: Temp Pulse Pulse Resp BP BP Pulse Ox 07/31/22 11:59 36.4 C L 110 H 18 135/86 95 07/31/22 11:31 36.5 C 112 H 18 147/89 H 96 07/31/22 11:10 106 H 20 134/81 93 07/31/22 10:40 105 H 16 122/80 93 07/31/22 10:25 103 H 16 129/78 93 07/31/22 10:10 102 H 18 119/71 93 07/31/22 09:55 105 H 20 111/69 95 07/31/22 09:40 36.4 C L 103 H 20 112/72 93 07/31/22 09:30 103 H 20 114/73 93 07/31/22 09:20 105 H 20 103/66 92 07/31/22 09:10 106 H 18 109/66 92 07/31/22 09:00 105 H 20 115/66 93 07/31/22 08:50 104 H 20 113/75 92 07/31/22 08:40 109 H 20 117/70 96 07/31/22 08:31 36.1 C L 112 H 16 113/68 96 07/31/22 05:50 07/31/22 05:50 36.6 C 83 18 130/79 94 O2 Del Method O2 Flow Rate 07/31/22 11:59 Room Air 07/31/22 11:31 Room Air 07/31/22 11:10 Room Air 07/31/22 10:40 Room Air 07/31/22 10:25 Room Air 07/31/22 10:10 Room Air 07/31/22 09:55 Room Air 07/31/22 09:40 Room Air 07/31/22 09:30 Room Air 07/31/22 09:20 Room Air 07/31/22 09:10 Room Air 07/31/22 09:00 Room Air 07/31/22 08:50 Room Air 07/31/22 08:40 Room Air 07/31/22 08:31 Oxymask 6 07/31/22 05:50 Room Air 07/31/22 05:50 Room Air Pain Intensity Left Hip: Pain Intensity: 1 Transfer of Care Handoff Completed per policy Notes Mental Status: alert / awake / arousable and participated in evaluation Patient Amnestic to Procedure: Yes Nausea / Vomiting: adequately controlled Pain: adequately controlled Airway Patency, RR, SpO2: stable & adequate BP & HR: stable & adequate Hydration State: stable & adequate Neuraxial Anesthesia: was administered and sensory block is resolving Anesthetic Complications: no major complications apparent and Pt Satisfied with anesthetic care
[2022-07-31] MEDS: ASCORBIC ACID 500 MG TAB PO SCH (17:14)
[2022-07-31] MEDS: traMADol HCL 50 MG TABLET PO PRN (19:37)
[2022-07-31] MEDS: METOPROLOL TARTRATE 25 MG TAB PO SCH (20:43)
[2022-07-31] MEDS: TROLAMINE SALICYLATE 10% CRM 255 APPLN/85 GM TUBE EXT SCH (20:44)
[2022-07-31] MEDS ORDERED: CHOLECALCIFEROL 1,000 UNITS 25 MCG TAB PO SCH (21:00)
[2022-07-31] MEDS ORDERED: LATANOPROST 0.005% OP SOLN 2.5 ML BTL OPB SCH (21:00)
[2022-07-31] MEDS ORDERED: SENNA 8.6 MG TAB PO SCH (21:00)
[2022-07-31] MEDS ORDERED: MIRTAZAPINE TAB 15 MG TAB PO SCH (21:00)
[2022-08-01] MEDS: KETOROLAC TROMETHAMINE 15 MG/ML VIAL IV SCH ×2 (01:38→08:49)
[2022-08-01] MEDS: traMADol HCL 50 MG TABLET PO PRN (05:40)
[2022-08-01] MEDS ORDERED: dexAMETHasone 10 MG in SYRINGE 0 ML IV SCH (08:00)
[2022-08-01] MEDS: DORZOLAMIDE HCL 2% OPH SOLN 10 ML BTL OPB SCH ×2 (08:47→14:04)
[2022-08-01] MEDS: FINASTERIDE 5 MG TAB PO SCH (08:51)
[2022-08-01] MEDS: CYANOCOBALAMIN (B-12) 500 MCG TABLET PO SCH (08:52)
[2022-08-01] MEDS: MULTIVITAMIN TAB PO SCH (08:52)
[2022-08-01] MEDS: PANTOprazole 40 MG TAB PO SCH (08:52)
[2022-08-01] MEDS: METOPROLOL TARTRATE 25 MG TAB PO SCH (08:53)
[2022-08-01] MEDS: TAMSULOSIN HCL 0.4 MG CAP PO SCH (08:53)
[2022-08-01 08:54] LABS: Basophils # (auto) 0.02 K/uL (0-0.2); Basophils % (auto) 0.3 %; Eosinophils # (auto) 0.01 K/uL (0-0.50); Eosinophils % (auto) 0.1 %; Hematocrit (blood only) 38.6 % (42.0-52.0); Hemoglobin 13.2 g/dl (14.0-18.0); Immature Granulocytes # (auto) 0.03 K/uL (0.01-0.20); Immature Granulocytes % (auto) 0.4 %; Lymphocytes # (auto) 1.53 K/uL (1.2-3.4); Lymphocytes % (auto) 20.2 %; Mean Corpuscular Hemoglobin 31.3 pg (25.0-34.0); Mean Corpuscular Hgb Conc 34.2 g/dL (32.0-36.0); Mean Corpuscular Volume 91.5 fL (80.0-100.0); Mean Platelet Volume 9.6 fL (9.4-12.4); Monocytes # (auto) 0.92 K/uL (0.11-0.59); Monocytes % (auto) 12.2 %; Neutrophils # (auto) 5.06 K/uL (1.40-6.50); Neutrophils % (auto) 66.8 %; Platelet Count 139 K/uL (130-400); RDW Coefficient of Variation 13.2 % (11.5-14.5); RDW Standard Deviation 44.7 fL (36.4-46.3); Red Blood Count 4.22 M/uL (4.70-6.10); White Blood Count 7.57 K/ul (4.8-10.8)
[2022-08-01] MEDS: CALCIUM 600MG + VIT D 400 IU TAB PO SCH (08:54)
[2022-08-01] MEDS: ACETAMINOPHEN 500 MG TAB PO SCH ×2 (08:54→14:03)
[2022-08-01] MEDS: DOCUSATE SODIUM 100 MG CAP PO SCH (08:54)
[2022-08-01] MEDS: ASCORBIC ACID 500 MG TAB PO SCH (08:55)
[2022-08-01] MEDS: TROLAMINE SALICYLATE 10% CRM 255 APPLN/85 GM TUBE EXT SCH (08:56)
[2022-08-01] MEDS: POLYETHYLENE (MIRALAX) 17 GM PACK PO SCH (08:56)
[2022-08-01 08:58] LABS: BUN Creatinine Ratio 14.3 (10-20); Calcium 8.9 mg/dl (8.6-10.3); Est GFR (African American) 104.8 ml/min; Est GFR (Non-African American) 90.4 ml/min; Potassium 4.1 mmol/L (3.5-5.1)
[2022-08-01] MEDS ORDERED: APIXABAN 2.5 MG TAB PO SCH (09:00)
--- NOTE | 2022-08-01 13:08 | Electrocardiogram Report ---
Test Reason : Blood Pressure : / mmHG Vent. Rate : 105 BPM Atrial Rate : 105 BPM P-R Int : 154 ms QRS Dur : 086 ms QT Int : 370 ms P-R-T Axes : 039 053 -12 degrees QTc Int : 489 ms Sinus tachycardia Possible Left atrial enlargement Nonspecific ST and T wave abnormality Abnormal ECG When compared with ECG of 17-MAY-2022 21:08, No significant change was found Confirmed by Aristides Blackburn ([id number]) on 08/01/2022 1:07:50 PM Referred By: Camron Trevino Confirmed By:Masoud Blackburn
--- NOTE | 2022-08-01 14:46 | Progress Notes ---
DATE OF SERVICE: 08/01/2022 SUBJECTIVE: A 76-year-old gentleman, postoperative day 1 from a left hip replacement. He is doing q uite well. Really no pain at all while resting. Moderate discomfort while walking. Therapy went we ll. No chest pain or shortness of breath. Hoping to go home. OBJECTIVE: VITAL SIGNS: Temperature 36.7. Vital signs are stable. GENERAL: Shows a pleasant, elderly male. He is sitting up in bed and looks quite comfortable. EXTREMITIES: Examination of the left hip reveals dressing to be clean, dry and intact. Thigh is sof t and supple. Mild swelling. He can dorsiflex and plantarflex his foot appropriately. He is neurol ogically intact. LABORATORY DATA: Hemoglobin 13.2. Hematocrit 38.6. Electrolytes are stable. ASSESSMENT: A 76-year-old gentleman, postoperative day 1 from a left hip replacement, doing quite we ll. His pain is controlled. His hip is located. He is neurologically intact. Therapy went well. He is hoping to go home. PLAN: 1. DVT prophylaxis includes thigh-high TEDs, SCDs and back on his Eliquis. He is on a prophylactic dose today and therapeutic dose tomorrow. 2. PT/OT, weightbear as tolerated. Left total hip protocol. 3. Pain control, doing okay with current pain regimen. 4. Disposition: Plan to discharge to home with some home health today. Job ID: [id number]
--- NOTE | 2022-08-06 13:10 | Discharge Summary ---
Date of Service August 06, 2022 Discharge Data Procedures Performed Operation Date: 07/31/22 07:00 Actual Procedures p Left Total Hip Arthroplasty(Left) - Camron Trevino MD Hospital Course (1) S/P total left hip arthroplasty: This is a 76 year old patient admitted on 07/31/22 and underwent total hip arthroplasty. He tolerated the procedure well and there were no complications. Transferred to the PACU post op and later to the orthopedic floor for further care. He was given ancef for antibiotic prophylaxis. He was also given CARMEN stockings, SCDs, and eliquis for DVT prophylaxis. Hemoglobin, hematocrit, and vital signs were monitored during his hospital stay and remained stable. Did not require any blood transfusions. There were no complications during his hospital stay. By post op day #1 the patient was tolerating a regular diet, pain was reasonably controlled with oral pain medicine, and he was participating in physical therapy. On post op day #1 the patient was discharged home and set up with home health care. He was given printed discharge instructions including prescriptions for extra strength tylenol, zofran, flomax, and tramadol. Continue physical therapy, weight bearing as tolerated. Continue hip precautions. Continue CARMEN stockings. Follow up approximately 2 weeks post op or sooner if there are problems or concerns. Coding Level of Care Code None Diagnoses S/P total left hip arthroplasty Z96.642
== END 2022-08-01 15:00 | disposition home health service (06) ==
LOC: PACUINP 05:07 → ASU 05:07 → 3E 11:44

== ENCOUNTER 2022-09-15 12:27 | Observation (INO) ==
--- NOTE | 2022-09-15 12:51 | Emergency Department Note ---
History of Present Illness General Chief complaint: Chest Pain Stated complaint: CHEST PAIN Time Seen by Provider: 09/15/22 12:33 Source: patient, family ( was at the bedside), RN notes reviewed and old records reviewed (I have reviewed previous hospitalization/inpatient) Mode of arrival: ambulatory Limitations: no limitations History of Present Illness Maximum Pain Intensity: 8 This patient is a 76-year-old male who has a history of coronary artery disease, comes in after having some chest discomfort which started a couple hours prior to arrival he says it feels like his heart is beating hard or fast. No syncope or near syncope no lightheadedness or dizziness. He has a history of A-fib and is on Eliquis. He describes a dull ache on his left side. There is no radiation to arm neck or back he felt short of breath initially but none now. He had some nausea. No vomiting no diarrhea. no fever or chills. no recent illness he did have a hip replacement in July. No blood or melena in his stool. no lower extremity pain or swelling. He does followed by a guzzler builder at the [place] for cardiac disease and his that he has stress test 6+ months ago which was normal. He has a history of coronary disease but is never had stents or bypass Home Medications Medication Instructions Recorded Confirmed Type cholecalciferol (vitamin D3) 25 1,000 unit PO QPM 11/13/18 08/16/22 History mcg (1,000 unit) capsule (Vitamin D3) cyanocobalamin (vitamin B-12) 500 mcg PO QAM 11/13/18 08/16/22 History 1,000 mcg tablet (Vitamin B-12) latanoprost 0.005 % eye drops 1 drp OPB QPM 11/13/18 08/16/22 History nitroglycerin 0.4 mg sublingual 0.4 mg sublingual UD PRN Chest Pain 09/14/19 08/16/22 History tablet (Nitrostat) calcium carbonate 600 mg-vitamin 1 cap PO BID 09/29/19 08/16/22 History D3 5 mcg (200 unit) capsule (Calcium 600 + D(3)) dorzolamide (PF) 2 % (PF) eye drops 1 drp OPB TID 09/29/19 08/16/22 History vitamins A,C,U-vdfh-txcsjy 2,148 1 tab PO BID 12/31/19 08/16/22 History mcg-113 mg-45 mg-17.4 mg tablet (PreserVision AREDS) metoprolol tartrate 50 mg tablet 25 mg PO BID 06/03/21 08/16/22 History pantoprazole 40 mg tablet,delayed 40 mg PO QAM heartburn 07/19/21 08/16/22 History release (Protonix) apixaban 5 mg tablet 5 mg PO BID 08/05/21 08/16/22 History docusate sodium 100 mg capsule 100 mg PO TID PRN Constipation 08/05/21 08/16/22 History (Colace) polyethylene glycol 3350 17 gram 17 g PO DAILY constipation #30 ea 10/11/21 08/16/22 Rx oral powder packet (Miralax) finasteride 5 mg tablet 5 mg PO QAM 07/02/22 08/16/22 History food supplemt, lactose-reduced 1 ea PO DAILY 07/02/22 08/16/22 History (Ensure oral liquid) methyl salicylate 10 % topical 1 applic topical BID 07/02/22 08/16/22 History cream mirtazapine 15 mg tablet 15 mg PO HS 07/02/22 08/16/22 History acetaminophen 500 mg tablet 1,000 mg PO TID pain 30 days #180 07/29/22 08/16/22 Rx (Tylenol Extra Strength) tabs ondansetron 4 mg disintegrating 4 mg PO Q8 PRN nausea #20 tabs 07/29/22 08/16/22 Rx tablet tamsulosin 0.4 mg capsule (Flomax) 0.4 mg PO DAILY #7 caps 07/29/22 08/16/22 Rx tramadol 50 mg tablet 50 - 100 mg PO Q6 PRN pain #40 tabs 08/14/22 08/16/22 Rx Allergies Allergy/AdvReac Type Severity Reaction Status Date / Time codeine AdvReac Intermediate NAUSEA, Verified 07/31/22 05:40 BLOOD PRESSURE DROPPED, DIZZINESS lorazepam [From Ativan] AdvReac Mild Confusion Verified 07/31/22 05:40 Past Med/Surg History Medical History Arthritis of left hip Asbestosis Atrial flutter ELIQUIS BID Coronary atherosclerosis of [place] coronary vessel Mild CAD per 2016 cath per cardio records No hx of stents or bypass Encounter for pre-operative examination GERD (gastroesophageal reflux disease) controlled, stable per pt Glaucoma AND MACULAR DEGENERATION; legally blind Hiatal hernia HTN (hypertension) controlled, stable per pt Hyperlipidemia 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 Required: No Beliefs That Will Affect Care: None marital status: Current Living Situation: Spouse current occupational status: retired How many Children do You have: 2 Feels Safe at Home: Yes Diet: regular during the past year weight has: remained stable Assistive Devices: Walker Review of Systems A total of 10 systems reviewed and were otherwise negative Physical Exam Vital Signs Vital Signs - 24 hr 09/15/22 12:28 09/15/22 12:38 09/15/22 12:44 Temperature 36.8 C Temperature Source Temporal Artery Scan Pulse Rate 87 89 84 Respiratory Rate 18 18 Blood Pressure 132/74 133/83 Blood Pressure Mean 93 99 Pulse Oximetry 95 95 Oxygen Delivery Method Room Air Sepsis New/Unexplained Change in Mental Status No Sepsis Action Taken by Nursing No Action Required 09/15/22 14:00 Temperature Temperature Source Pulse Rate 106 H Respiratory Rate 22 Blood Pressure 127/87 Blood Pressure Mean 100 Pulse Oximetry 94 Oxygen Delivery Method Sepsis New/Unexplained Change in Mental Status Sepsis Action Taken by Nursing General: Well developed well nourished older male who appears in no acute distress, breathing comfortably on room air. Normal speech HEENT: Normal cephalic atraumatic. Pupils are equal round and reactive to light. Extraocular movements are intact. Oropharynx is pink with moist mucous membranes. No swelling of the mouth lips or tongue. Neck: Supple with a midline trachea. No meningeal signs or stiffness, no JVD or bruits. No Stridor. Chest: Clear to auscultation bilaterally. No wheezes or rhonchi. No increased work of breathing. He is repeatedly tender in the lower chest more to the right. No rash. No crepitus or subcutaneous air Heart: Regular rate and rhythm without murmurs or gallops. Abdomen: Soft nontender, nondistended without rebound guarding or rigidity. Extremities: No cyanosis clubbing or edema. No calf tenderness or assymetry Spine/Back. Non tender to palpation. No CVA tenderness Skin: Good turgor without rashes. Dry, no diaphoresis Neurologic exam: Cranial nerves two through 12 are intact. Motor and sensation are intact and symmetrical throughout. Course Administered Medications Discontinued Medications Ioversol (Optiray 320 500ml) 113 ml IV ONCE ONE Stop: 09/15/22 13:37 Last Admin: 09/15/22 13:36 Dose: 113 ml Documented By: MCKENZIE Medical Decision Making Differential Diagnosis Acute coronary syndrome, arrhythmia, musculoskeletal, GERD, PE, pneumothorax, CHF, electrolyte or metabolic abnormality Medical Records Attestation: I reviewed the patient's medical records. Home Medications Current Medication List: was personally reviewed by me Laboratory Data Attestation: I reviewed the patient's lab results. 09/15/22 12:41 09/15/22 12:41 Lab Results 09/15/22 09/15/22 09/15/22 Range/Units 12:40 12:41 12:41 WBC 6.47 (4.8-10.8) K/ul RBC 4.83 (4.70-6.10) M/uL Hgb 14.8 (14.0-18.0) g/dl Hct 44.0 (42.0-52.0) % MCV 91.1 (80.0-100.0) fL MCH 30.6 (25.0-34.0) pg MCHC 33.6 (32.0-36.0) g/dL RDW Std Deviation 44.1 (36.4-46.3) fL RDW Coeff of Arlin 13.2 (11.5-14.5) % Plt Count 178 (130-400) K/uL MPV 9.1 L (9.4-12.4) fL Immature Gran % (Auto) 0.3 % Neut % (Auto) 41.6 % Lymph % (Auto) 41.1 % [place] % (Auto) 13.6 % Eos % (Auto) 2.3 % Baso % (Auto) 1.1 % Neut # (Auto) 2.69 (1.40-6.50) K/uL Lymph # (Auto) 2.66 (1.2-3.4) K/uL [place] # (Auto) 0.88 H (0.11-0.59) K/uL Eos # (Auto) 0.15 (0-0.50) K/uL Baso # (Auto) 0.07 (0-0.2) K/uL Immature Gran # (Auto) 0.02 (0.01-0.20) K/uL PT 12.9 H (9.0-12.0) Seconds INR 1.2 H (0.9-1.1) APTT 29.9 (21.0-31.0) Seconds PTT Ratio 1.1 D-Dimer 1390 H* (0-500) ug/L FEU Sodium (136-145) mmol/L Potassium (3.5-5.1) mmol/L Chloride (98-107) mmol/L Carbon Dioxide (21-32) mmol/L Anion Gap (3-11) BUN (6-23) mg/dl Creatinine (0.6-1.4) mg/dl Est Cr Clr Drug Dosing ml/min Est GFR ( Amer) ml/min Est GFR (Non-Af Amer) ml/min BUN/Creatinine Ratio (10-20) Glucose (70-99(Fasting)) mg/dl Calcium (8.6-10.3) mg/dl Total Bilirubin (0.2-1.0) mg/dl AST (13-39) U/L ALT (7-52) U/L Alkaline Phosphatase (34-104) U/L Troponin I High Sens (0-20) pg/ml Total Protein (6.0-8.3) gm/dl Albumin (3.4-5.0) gm/dl Globulin (2.5-4.0) gm/dl Albumin/Globulin Ratio (0.9-2) Lipase (11-82) U/L SARS-CoV-2, RNA, NAAT NEGATIVE (NEGATIVE) 09/15/22 Range/Units 12:41 WBC (4.8-10.8) K/ul RBC (4.70-6.10) M/uL Hgb (14.0-18.0) g/dl Hct (42.0-52.0) % MCV (80.0-100.0) fL MCH (25.0-34.0) pg MCHC (32.0-36.0) g/dL RDW Std Deviation (36.4-46.3) fL RDW Coeff of Arlin (11.5-14.5) % Plt Count (130-400) K/uL MPV (9.4-12.4) fL Immature Gran % (Auto) % Neut % (Auto) % Lymph % (Auto) % [place] % (Auto) % Eos % (Auto) % Baso % (Auto) % Neut # (Auto) (1.40-6.50) K/uL Lymph # (Auto) (1.2-3.4) K/uL [place] # (Auto) (0.11-0.59) K/uL Eos # (Auto) (0-0.50) K/uL Baso # (Auto) (0-0.2) K/uL Immature Gran # (Auto) (0.01-0.20) K/uL PT (9.0-12.0) Seconds INR (0.9-1.1) APTT (21.0-31.0) Seconds PTT Ratio D-Dimer (0-500) ug/L FEU Sodium 138 (136-145) mmol/L Potassium 4.1 (3.5-5.1) mmol/L Chloride 105 (98-107) mmol/L Carbon Dioxide 25 (21-32) mmol/L Anion Gap 8 (3-11) BUN 11 (6-23) mg/dl Creatinine 0.75 (0.6-1.4) mg/dl Est Cr Clr Drug Dosing 81.2 ml/min Est GFR ( Amer) 101.8 ml/min Est GFR (Non-Af Amer) 87.9 ml/min BUN/Creatinine Ratio 14.7 (10-20) Glucose 105 H (70-99(Fasting)) mg/dl Calcium 9.7 (8.6-10.3) mg/dl Total Bilirubin 0.6 (0.2-1.0) mg/dl AST 54 H (13-39) U/L ALT 47 (7-52) U/L Alkaline Phosphatase 107 H (34-104) U/L Troponin I High Sens 4.3 (0-20) pg/ml Total Protein 7.8 (6.0-8.3) gm/dl Albumin 3.9 (3.4-5.0) gm/dl Globulin 3.9 (2.5-4.0) gm/dl Albumin/Globulin Ratio 1.0 (0.9-2) Lipase 38 (11-82) U/L SARS-CoV-2, RNA, NAAT (NEGATIVE) Imaging Data Attestation: I personally reviewed and interpreted this imaging study as follows: My Impression: Chest x-raythere are changes consistent with asbestosis exposure but no acute infiltrate, failure, pneumothorax seen Radiologist's Impression: Chest X-Ray 09/15/22 12:43 XR chest 1V portable HISTORY: 76 years-old Male Chest pain, nonspecific COMPARISON: May 17, 2022 TECHNIQUE: AP view of the chest FINDINGS: Cardiomediastinal and hilar silhouettes are within normal limits. No pneumothorax, pleural effusion, airspace consolidation or pulmonary edema. Calcified pleural plaques redemonstrated. Mild right hemidiaphragmatic elevation. Bones appear grossly intact. IMPRESSION: 1. No acute processes of the chest. 2. Findings suggestive of Asbestos-related pleural disease. ACT 112: Negative or not required by law. The above report was generated using voice recognition software. It may contain grammatical, syntax or spelling errors. Electronically signed by: Rahat Araujo M.D. 09/15/2022 1:04 PM Chest CTA 09/15/22 13:21 CT angio chest PE protocol CT DOSE: 770.27 mGy.cm HISTORY: 76 years-old Male with PE. Acute chest pain with shortness of breath TECHNIQUE: Multiple CTA images of the chest were obtained after the intravenous administration of 113 ml Optiray. Coronal and sagittal MIPS were obtained from the axial data set and were submitted for review. All measurements were obtained according to NASCET criteria. A dose lowering technique was utilized adhering to the principles of ALARA. COMPARISON: Chest radiograph of same day, CTA chest 08/05/2021 FINDINGS: CTA: Heart is upper limits of normal in size. No pericardial effusion. Extensive coronary artery calcifications. Atherosclerosis of the thoracic aorta without aneurysm or dissection. No pulmonary emboli are identified. CT CHEST: Unremarkable thyroid. 1.2 cm right hilar lymph node on image 133 is stable from prior and likely benign. Small right pleural effusion. Bilateral calcified pleural plaques. No pneumothorax or overt pulmonary edema. Subsegmental bibasilar atelectasis. Scattered solid pulmonary nodules measuring up to 4-5 mm are suggestive of probable lymph nodes are similar in appearance the prior exam. Central airways appear patent. Cholecystectomy. Hepatomegaly with cirrhosis. No acute process of the imaged upper abdomen. Colonic diverticulosis. Unremarkable soft tissues. There is no acute fracture. IMPRESSION: 1. No pulmonary emboli are identified. 2. Small right pleural effusion with mild right basilar atelectasis. 3. Asbestos-related pleural disease. 4. Cirrhosis. ACT 112: Negative or not required by law. The above report was generated using voice recognition software. It may contain grammatical, syntax or spelling errors. Electronically signed by: Rahat Araujo M.D. 09/15/2022 2:03 PM ECG Data Attestation: I personally reviewed and interpreted this ECG as follows: Indication: + chest pain Rate (beats per minute): 87 Rhythm: + normal sinus ECG Intervals/blocks: + Normal QRS, + Normal QT and + Normal MO ECG ST segments: + Nonspecific ST abnormalities ECG Findings: no PACs or no PVCs Comparison ECG Date: from (07/31/22) Change: no significant change Additional Comments: EKG #2: Normal sinus rhythm with a rate of 89 no acute ischemic changes or ectopy seen. MDM Narrative This patient comes in as described above. He was placed on a radiation monitor in room a 11. He has had chest pain for couple hours. It is dull it is reproducible. He does have history of cardiac disease and has had hip surgery so a pulmonary embolism would also be in the differential. IV access was established. EKG was obtained and shows no ischemic change. He is not in A-fib and has normal sinus. The patient feels well since he has been here. He has no significant electrolyte or metabolic abnormality. He has nothing to suggest liver, gallbladder, or pancreas disease. He has no fever or white count to suggest infection. No significant anemia. COVID testing was negative. The patient says he gets symptoms like these from time to time and it felt like his heart was just beating irregular. Is possible he could have been in A-fib. Given his recent hip surgery, I also did order CT angiography of of the chest to rule out PE. CAT scan of the chest has no evidence of PE. His second EKG shows no change compared to the first. His troponin is not elevated. I did a second troponin. The meantime I sat down and talked to the patient and his at length. He is very concerned about going home and I think given the fact that he had chest pain and has a history of cardiac disease and other risk factors I do think it is reasonable to do a chest pain rule out observation/admission. I have consulted and discussed the case Dr. Hyde, the hospitalist to see him in the ER for these measures Continuous cardiac monitoring: Orders placed in EMR for continuous cardiac monitoring: Upon my evaluation patient was noted to be in normal sinus rhythm with a rate of 85 Impression & Plan Chest pain, Current use of group home anticoagulation, History of atrial fibrillation, Lab test negative for COVID-19 virus Discharge Plan Visit Data Chief Complaint: Chest Pain Stated Complaint: CHEST PAIN ED Provider: Candelario Willard Discharge Problem: Chest pain, Current use of group home anticoagulation, History of atrial fibrillation, Lab test negative for COVID-19 virus Forms Stand Alone Forms: My [facility] Prescriptions Prescriptions: No Action ondansetron 4 mg tablet,disintegrating 4 mg PO Q8 PRN (Reason: nausea) Qty: 20 1RF Rx Instructions: Take as needed for nausea acetaminophen [Tylenol Extra Strength] 500 mg tablet 1,000 mg PO TID 30 Days Qty: 180 0RF Rx Instructions: Take 3 times per day to lessen pain. tamsulosin [Flomax] 0.4 mg capsule 0.4 mg PO DAILY Qty: 7 0RF Rx Instructions: Begin night BEFORE surgery to prevent urinary retention tramadol 50 mg tablet 50 - 100 mg PO Q6 MDD do not exceed 6 tabs per day PRN (Reason: pain) Qty: 40 0RF Rx Instructions: Take as needed for pain polyethylene glycol 3350 [Miralax] 17 gram powder in packet 17 g PO DAILY Qty: 30 2RF latanoprost 0.005 % Drops 1 drp OPB QPM Patient Comments: BOTH EYES cyanocobalamin (vitamin B-12) [Vitamin B-12] 1,000 mcg Tablet 500 mcg PO QAM cholecalciferol (vitamin D3) [Vitamin D3] 1,000 unit Capsule 1,000 unit PO QPM nitroglycerin [Nitrostat] 0.4 mg Tablet, Sublingual 0.4 mg sublingual UD PRN (Reason: Chest Pain) Patient Comments: NOT FOR A LONG TIME , YEARS Rx Instructions: PLACE ONE TABLET UNDER THE TONGUE EVERY 5 MINUTES FOR UP TO 3 DOSES OVER 15 MINUTES IF NEEDED FOR CHEST PAIN PreserVision AREDS [id number] Tablet 1 tab PO BID dorzolamide (PF) 2 % Drops 1 drp OPB TID Patient Comments: BOTH EYES Calcium 600 + D(3) 600 mg calcium- 200 unit Capsule 1 cap PO BID pantoprazole [Protonix] 40 mg tablet,delayed release (DR/EC) 40 mg PO QAM metoprolol tartrate 50 mg Tablet 25 mg PO BID docusate sodium [Colace] 100 mg Capsule 100 mg PO TID PRN (Reason: Constipation) apixaban 5 mg Tablet 5 mg PO BID mirtazapine 15 mg Tablet 15 mg PO HS finasteride 5 mg Tablet 5 mg PO QAM methyl salicylate 10 % Cream 1 applic TOPICAL BID Ensure Liquid 1 ea PO DAILY Referrals Referrals: Jordan Heard, [employer] [Primary Care Provider] - Chest pain Qualifiers: Chest pain type: precordial pain Qualified Code(s): R07.2 - Precordial pain
[2022-09-15 12:59] LABS: Basophils # (auto) 0.07 K/uL (0-0.2); Basophils % (auto) 1.1 %; Eosinophils # (auto) 0.15 K/uL (0-0.50); Eosinophils % (auto) 2.3 %; Hemoglobin 14.8 g/dl (14.0-18.0); Immature Granulocytes # (auto) 0.02 K/uL (0.01-0.20); Immature Granulocytes % (auto) 0.3 %; Lymphocytes # (auto) 2.66 K/uL (1.2-3.4); Lymphocytes % (auto) 41.1 %; Mean Corpuscular Hemoglobin 30.6 pg (25.0-34.0); Mean Corpuscular Hgb Conc 33.6 g/dL (32.0-36.0); Mean Corpuscular Volume 91.1 fL (80.0-100.0); Mean Platelet Volume 9.1 fL (9.4-12.4); Monocytes # (auto) 0.88 K/uL (0.11-0.59); Monocytes % (auto) 13.6 %; Neutrophils # (auto) 2.69 K/uL (1.40-6.50); Neutrophils % (auto) 41.6 %; Platelet Count 178 K/uL (130-400); RDW Coefficient of Variation 13.2 % (11.5-14.5); RDW Standard Deviation 44.1 fL (36.4-46.3); Red Blood Count 4.83 M/uL (4.70-6.10); White Blood Count 6.47 K/ul (4.8-10.8)
--- NOTE | 2022-09-15 13:06 | XRay Report ---
XR chest 1V portable HISTORY: 76 years-old Male Chest pain, nonspecific COMPARISON: May 17, 2022 TECHNIQUE: AP view of the chest FINDINGS: Cardiomediastinal and hilar silhouettes are within normal limits. No pneumothorax, pleural effusion, airspace consolidation or pulmonary edema. Calcified pleural plaques redemonstrated. Mild right hemid iaphragmatic elevation. Bones appear grossly intact. IMPRESSION: 1. No acute processes of the chest. 2. Findings suggestive of Asbestos-related pleural disease. ACT 112: Negative or not required by law. The above report was generated using voice recognition software. It may contain grammatical, syntax o r spelling errors. Electronically signed by: Rahat Araujo M.D. 09/15/2022 1:04 PM
[2022-09-15 13:19] LABS: Albumin Level 3.9 gm/dl (3.4-5.0); BUN Creatinine Ratio 14.7 (10-20); Bilirubin,Total 0.6 mg/dl (0.2-1.0); Calcium 9.7 mg/dl (8.6-10.3); Creatinine Clr Calc Pharmacy 81.2 ml/min; Est GFR (African American) 101.8 ml/min; Est GFR (Non-African American) 87.9 ml/min; Globulin 3.9 gm/dl (2.5-4.0); Potassium 4.1 mmol/L (3.5-5.1); Total Protein 7.8 gm/dl (6.0-8.3)
[2022-09-15 13:23] LABS: INR 1.2 (0.9-1.1); Partial Thromboplastin Ratio 1.1; Partial Thromboplastin Time 29.9 Seconds (21.0-31.0); Prothrombin Time 12.9 Seconds (9.0-12.0)
[2022-09-15 13:25] LABS: Troponin I High Sensitivity 4.3 pg/ml (0-20)
[2022-09-15] MEDS ORDERED: OPTIRAY 320 500ml IV ONE (13:36)
[2022-09-15 13:56] LABS: D Dimer 1390 ug/L FEU (0-500)
--- NOTE | 2022-09-15 14:05 | CT Scan Report ---
CT angio chest PE protocol CT DOSE: 770.27 mGy.cm HISTORY: 76 years-old Male with PE. Acute chest pain with shortness of breath TECHNIQUE: Multiple CTA images of the chest were obtained after the intravenous administration of 113 ml Optiray. Coronal and sagittal MIPS were obtained from the axial data set and were submitted for review. All measurements were obtained according to NASCET criteria. A dose lowering technique was u tilized adhering to the principles of ALARA. COMPARISON: Chest radiograph of same day, CTA chest 08/05/2021 FINDINGS: CTA: Heart is upper limits of normal in size. No pericardial effusion. Extensive coronary artery calcifica tions. Atherosclerosis of the thoracic aorta without aneurysm or dissection. No pulmonary emboli are identified. CT CHEST: Unremarkable thyroid. 1.2 cm right hilar lymph node on image 133 is stable from prior and likely angela gn. Small right pleural effusion. Bilateral calcified pleural plaques. No pneumothorax or overt pulmo nary edema. Subsegmental bibasilar atelectasis. Scattered solid pulmonary nodules measuring up to 4-5 mm are suggestive of probable lymph nodes are similar in appearance the prior exam. Central airways appear patent. Cholecystectomy. Hepatomegaly with cirrhosis. No acute process of the imaged upper abdomen. Colonic d iverticulosis. Unremarkable soft tissues. There is no acute fracture. IMPRESSION: 1. No pulmonary emboli are identified. 2. Small right pleural effusion with mild right basilar atelectasis. 3. Asbestos-related pleural disease. 4. Cirrhosis. ACT 112: Negative or not required by law. The above report was generated using voice recognition software. It may contain grammatical, syntax o r spelling errors. Electronically signed by: Rahat Araujo M.D. 09/15/2022 2:03 PM
--- NOTE | 2022-09-15 15:12 | History & Physical Report ---
Date of Service September 15, 2022 Assessment & Plan (1) Chest pain: Plan: Low suspicion of ACS vs. more likely arrhythmia Risk factors for ACS including Hyperlipidemia, mild CAD on scan in 2016 ASA 324 mg PO now Patient already on Eliquis and given low suspicion of ACS will defer switching this to heparin, hold Eliquis in low probability of needing cardiac catheterization following dobutamine stress echo in AM HbA1C and lipid profile with AM labs Monitoring on telemetry for arrhythmia - recommend following up with his relationship counselor for outpatient slip cover cutter if not caught overnight on telemetry. 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 Midsternal chest pain without radiation. Started at 10:30am. Occurred at rest. Lasted for 1.5-2 hours. Severity 8/10. Constant. Associated palpitations. Improved with rest. No worse on exertion/inspiration/position. Took nitroglycerin which did not help. Resolved when he came to the ER between the triage and the ER room. Had similar feelings previously. Describes his heart turning over which sometimes lasts a minute and resolve on their own. Occasional associated with palpitations. Lately occuring more frequently on a daily basis. Per last cardiology note in March 2022 he was noted to have mild coronary artery disease and atrial fibrillation with last cardiac catheterization in 2016 (results not available on admission). Allergies Allergy/AdvReac Type Severity Reaction Status Date / Time codeine AdvReac Intermediate NAUSEA, Verified 09/15/22 16:23 BLOOD PRESSURE DROPPED, DIZZINESS lorazepam [From Ativan] AdvReac Mild Confusion Verified 09/15/22 16:23 Home Medications Medication Instructions Recorded Confirmed Type cholecalciferol (vitamin D3) 25 1,000 unit PO QPM 11/13/18 09/15/22 History mcg (1,000 unit) capsule (Vitamin D3) cyanocobalamin (vitamin B-12) 500 mcg PO QAM 11/13/18 09/15/22 History 1,000 mcg tablet (Vitamin B-12) latanoprost 0.005 % eye drops 1 drp OPB QPM 11/13/18 09/15/22 History nitroglycerin 0.4 mg sublingual 0.4 mg sublingual UD PRN Chest Pain 09/14/19 09/15/22 History tablet (Nitrostat) calcium carbonate 600 mg-vitamin 1 cap PO BID 09/29/19 09/15/22 History D3 5 mcg (200 unit) capsule (Calcium 600 + D(3)) dorzolamide (PF) 2 % (PF) eye drops 1 drp OPB TID 09/29/19 09/15/22 History vitamins A,C,Y-cxhv-hljlcu 2,148 1 tab PO BID 12/31/19 09/15/22 History mcg-113 mg-45 mg-17.4 mg tablet (PreserVision AREDS) metoprolol tartrate 50 mg tablet 25 mg PO BID 06/03/21 09/15/22 History pantoprazole 40 mg tablet,delayed 40 mg PO QAM heartburn 07/19/21 09/15/22 Hist ory release (Protonix) apixaban 5 mg tablet 5 mg PO BID 08/05/21 09/15/22 History docusate sodium 100 mg capsule 100 mg PO TID PRN Constipation 08/05/21 09/15/22 History (Colace) finasteride 5 mg tablet 5 mg PO QAM 07/02/22 09/15/22 History mirtazapine 15 mg tablet 15 mg PO HS 07/02/22 09/15/22 History acetaminophen 500 mg tablet 1,000 mg PO TID PRN Pain 09/15/22 09/15/22 History (Tylenol Extra Strength) polyethylene glycol 3350 17 gram 17 g PO QAM constipation 09/15/22 09/15/22 History oral powder packet (Miralax) rosuvastatin 10 mg tablet 10 mg PO HS 09/15/22 09/15/22 History Past Med/Surg History Medical History Arthritis of left hip Asbestosis Atrial flutter ELIQUIS BID Coronary atherosclerosis of [place] coronary vessel Mild CAD per 2016 cath per cardio records No hx of stents or bypass Encounter for pre-operative examination GERD (gastroesophageal reflux disease) controlled, stable per pt Glaucoma AND MACULAR DEGENERATION; legally blind Hiatal hernia HTN (hypertension) controlled, stable per pt Hyperlipidemia 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 Hx of cystoscopy Family History Father Cancer Mother Heart disease Social History Smoking Status: Former smoker Tobacco Type: Cigarettes Smoking End Date: 1998; Second Hand Exposure: No; Do You Dip or Chew Tobacco: No; Tobacco Cessation Education Requested by Patient: No Hx Alcohol Use: Yes Alcohol type: beer Hx Substance Use: No Preferred Language: Fijian Communication Ability: Effective Communication Ability Comment: IMPAIRED VISION DUE TO MACULAR DEGENERATION/GLAUCOMA Visual Impairment: Limited Hearing Ability: Normal Threat Analyst Required: No Beliefs That Will Affect Care: None marital status: Current Living Situation: Spouse current occupational status: retired How many Children do You have: 2 Other Information That Helps Us Care for You: No Feels Safe at Home: Yes Safety Concerns: Feels Safe At This Time Diet: regular during the past year weight has: remained stable Assistive Devices: Denture - Lower Review of Systems Review of Systems: All systems reviewed & are unremarkable except as noted in HPI & below Physical Exam Constitutional: WD/WN, vitals as above Eyes: PERRL, conjunctivae normal, anicteric sclerae Respiratory: normal respiratory effort, lungs clear to auscultation Cardiovascular: Rate/Rhythm: regular rate and regular rhythm Heart Sounds: no murmur Vessels: no JVD Extremities: + pedal edema (1+ b/l equal pitting edema) Gastrointestinal (Abdomen): normal bowel sounds, soft, nontender, no hepatosplenomegaly Neurologic: moves all extremities and awake; not confused Motor/Sensory: + tremor (resting pin-rolling, left hand) Psychiatric: A+Ox3, euthymic affect Results & Data Results & Data Vital Signs (Past 12 Hours) Vital Signs Temp Pulse Resp BP Pulse Ox O2 Del Method 09/15/22 14:00 106 H 22 127/87 94 09/15/22 12:44 84 09/15/22 12:38 89 18 133/83 95 09/15/22 12:28 36.8 C 87 18 132/74 95 Room Air Laboratory Results Abnormal lab results 09/15/22 09/15/22 09/15/22 Range/Units 12:41 12:41 12:41 MPV 9.1 L (9.4-12.4) fL [place] # (Auto) 0.88 H (0.11-0.59) K/uL PT 12.9 H (9.0-12.0) Seconds INR 1.2 H (0.9-1.1) D-Dimer 1390 H* (0-500) ug/L FEU Glucose 105 H (70-99(Fasting)) mg/dl AST 54 H (13-39) U/L Alkaline Phosphatase 107 H (34-104) U/L Diagnostic Findings XR chest 1V portable HISTORY: 76 years-old Male Chest pain, nonspecific COMPARISON: May 17, 2022 TECHNIQUE: AP view of the chest FINDINGS: Cardiomediastinal and hilar silhouettes are within normal limits. No pneumothorax, pleural effusion, airspace consolidation or pulmonary edema. Calcified pleural plaques redemonstrated. Mild right hemidiaphragmatic elevation. Bones appear grossly intact. IMPRESSION: 1. No acute processes of the chest. 2. Findings suggestive of Asbestos-related pleural disease. CT angio chest PE protocol CT DOSE: 770.27 mGy.cm HISTORY: 76 years-old Male with PE. Acute chest pain with shortness of breath TECHNIQUE: Multiple CTA images of the chest were obtained after the intravenous administration of 113 ml Optiray. Coronal and sagittal MIPS were obtained from the axial data set and were submitted for review. All measurements were obtained according to NASCET criteria. A dose lowering technique was utilized adhering to the principles of ALARA. COMPARISON: Chest radiograph of same day, CTA chest 08/05/2021 FINDINGS: CTA: Heart is upper limits of normal in size. No pericardial effusion. Extensive coronary artery calcifications. Atherosclerosis of the thoracic aorta without aneurysm or dissection. No pulmonary emboli are identified. CT CHEST: Unremarkable thyroid. 1.2 cm right hilar lymph node on image 133 is stable from prior and likely benign. Small right pleural effusion. Bilateral calcified pleural plaques. No pneumothorax or overt pulmonary edema. Subsegmental bibasilar atelectasis. Scattered solid pulmonary nodules measuring up to 4-5 mm are suggestive of probable lymph nodes are similar in appearance the prior exam. Central airways appear patent. Cholecystectomy. Hepatomegaly with cirrhosis. No acute process of the imaged upper abdomen. Colonic diverticulosis. Unremarkable soft tissues. There is no acute fracture. IMPRESSION: 1. No pulmonary emboli are identified. 2. Small right pleural effusion with mild right basilar atelectasis. 3. Asbestos-related pleural disease. 4. Cirrhosis. Medications Administered ER Medications Given: None ECG Rate (beats per minute): 87 Rhythm: normal sinus Findings: + other (T wave flattening throughout, low voltage) Comparison ECG Date: from (July 31, 2021) Change: the following changes noted (T waves appear more flattened throughout) Code Status & VTE Plan Code Status Full VTE Prophylaxis Plan VTE Prophylaxis will be ordered: No PG Care Time/CCT Total # of Minutes Spent Total Time Spent with Patient: Total time spent is greater than 50% in coordination of care (as documented) at patient's floor/unit and/or counseling patient: Coding Level of Care Code 35594 INT INP/OBS CARE 2/55MIN Diagnoses Chest pain R07.2 Chest pain type: precordial pain Resting tremor G25.2 History of atrial fibrillation Z86.79 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
--- NOTE | 2022-09-15 15:58 | Electrocardiogram Report ---
Test Reason : Blood Pressure : / mmHG Vent. Rate : 087 BPM Atrial Rate : 087 BPM P-R Int : 132 ms QRS Dur : 076 ms QT Int : 364 ms P-R-T Axes : 006 041 068 degrees QTc Int : 438 ms Normal sinus rhythm Low voltage QRS Nonspecific ST and T wave abnormality Abnormal ECG When compared with ECG of 31-JUL-2022 09:01, Nonspecific T wave abnormality has replaced inverted T waves in Lateral leads QT has shortened Confirmed by Aristides Blackburn ([id number]) on 09/15/2022 3:57:44 PM Referred By: REFERRED SELF Confirmed By:Masoud Blackburn
[2022-09-15] MEDS ORDERED: ASPIRIN 81 MG CHEW PO STA (16:04)
[2022-09-15] MEDS ORDERED: ACETAMINOPHEN 325 MG TAB PO PRN (17:21)
[2022-09-15] MEDS ORDERED: ONDANSETRON INJ 2 MG/ML 2 ML VIAL IV PRN (17:21)
[2022-09-15] MEDS ORDERED: ACETAMINOPHEN 500 MG TAB PO PRN (18:11)
[2022-09-15] MEDS ORDERED: APIXABAN 5 MG TABLET PO SCH (21:00)
[2022-09-15] MEDS ORDERED: ROSUVASTATIN CALCIUM 10 MG TAB PO SCH (21:00)
[2022-09-15] MEDS ORDERED: MIRTAZAPINE TAB 15 MG TAB PO SCH (21:00)
[2022-09-15] MEDS ORDERED: LATANOPROST 0.005% OP SOLN 2.5 ML BTL OPB SCH (21:00)
[2022-09-15] MEDS: METOPROLOL TARTRATE 25 MG TAB PO SCH (21:58)
[2022-09-15] MEDS: DORZOLAMIDE HCL 2% OPH SOLN 10 ML BTL OPB SCH (22:00)
[2022-09-16 07:04] LABS: Basophils # (auto) 0.04 K/uL (0-0.2); Basophils % (auto) 0.8 %; Eosinophils # (auto) 0.17 K/uL (0-0.50); Eosinophils % (auto) 3.5 %; Hematocrit (blood only) 40.5 % (42.0-52.0); Hemoglobin 13.8 g/dl (14.0-18.0); Immature Granulocytes # (auto) 0.01 K/uL (0.01-0.20); Immature Granulocytes % (auto) 0.2 %; Lymphocytes # (auto) 1.77 K/uL (1.2-3.4); Lymphocytes % (auto) 36.5 %; Mean Corpuscular Hemoglobin 30.7 pg (25.0-34.0); Mean Corpuscular Hgb Conc 34.1 g/dL (32.0-36.0); Mean Platelet Volume 9.4 fL (9.4-12.4); Monocytes # (auto) 0.55 K/uL (0.11-0.59); Monocytes % (auto) 11.3 %; Neutrophils # (auto) 2.31 K/uL (1.40-6.50); Neutrophils % (auto) 47.7 %; Platelet Count 141 K/uL (130-400); RDW Coefficient of Variation 13.1 % (11.5-14.5); RDW Standard Deviation 42.7 fL (36.4-46.3); White Blood Count 4.85 K/ul (4.8-10.8)
[2022-09-16 07:22] LABS: BUN Creatinine Ratio 21.9 (10-20); Calcium 9.1 mg/dl (8.6-10.3); Chol HDL Ratio 3.1 (0-5); Creatinine Clr Calc Pharmacy 95.1 ml/min; Est GFR (African American) 108.7 ml/min; Est GFR (Non-African American) 93.8 ml/min
[2022-09-16 08:01] LABS: Estimated Average Glucose 128 mg/dl; Hemoglobin A1C 6.1 % (4.5-5.6)
[2022-09-16] MEDS: DORZOLAMIDE HCL 2% OPH SOLN 10 ML BTL OPB SCH ×2 (08:15→13:31)
[2022-09-16] MEDS: METOPROLOL TARTRATE 25 MG TAB PO SCH (08:17)
[2022-09-16] MEDS ORDERED: PANTOprazole 40 MG TAB PO SCH (09:00)
[2022-09-16] MEDS ORDERED: POLYETHYLENE (MIRALAX) 17 GM PACK PO SCH (09:00)
[2022-09-16] MEDS ORDERED: FINASTERIDE 5 MG TAB PO SCH (09:00)
--- NOTE | 2022-09-16 11:46 | XCELERA ---
[id number]
--- NOTE | 2022-09-16 14:50 | Cardiology Consultation ---
Date of Consultation September 16, 2022 Assessment & Plan (1) Paroxysmal atrial flutter: (2) Chest pain: (3) Palpitations: (4) Current use of penitentiary anticoagulation: (5) CAD (coronary artery disease): Plan ASSESSMENT/PLAN: 1. Paroxysmal atrial flutter: Presentation suspicious for recurrent atrial flutter given history in 2017 with similar presentation. Unfortunately, symptoms had resolved prior to ECG or telemetry. For now, increase metoprolol to 50 mg twice daily. Recommend long-term monitoring such as loop recorder or could try 30-day event monitor but likely low yield unless he has significant recurrence. If found that this is recurrent atrial flutter and has increased burden/symptoms, ablation could be considered. Continue anticoagulation for stroke risk reduction. 2. Chest pain: Occurred in the setting of palpitations. Has had episodes of atypical chest pain in the past and found to have nonobstructive CAD. This particular episode lasted approximately 1 hour with negative high-sensitivity troponins. Ischemic evaluation not necessary at this time. Likely related to arrhythmia as above. 3. Palpitations: As above. 4. CAD: Described as nonobstructive in the past. Risk factor modification. Goal LDL <70. No angina. Not on aspirin while on anticoagulation therapy. Continue beta-nora. Continue statin therapy. 5. Anticoagulation therapy: Monitor CBC and renal function as an outpatient. 6. Disposition: Follow-up with his primary table runner through the [facility]. Can be discharged from a cardiac standpoint. Patient care communicated with Dr. Her of the primary hospitalist service. Today's visit was 52 minutes in duration, which includes [id number] time, counseling patient, coordinating care, reviewing multiple records, and communicating with primary hospitalist service. Also includes documentation. Thank you for allowing me to participate in the care of your patient. Please call for any other questions or concerns. Sincerely, Gary Diaz M.D. History of Present Illness Reason for Consultation: chest pain Requesting Physician: Ari Her Attending Physician: Ari Her History of Present Illness Mr. Christensen is a very pleasant 76-year-old gentleman with a history significant for paroxysmal atrial flutter, nonobstructive CAD, cirrhosis of the liver secondary to Jones, GERD, hypertension, and dyslipidemia. His primary table runner is through the [facility]. He was hospitalized in 2017 with atrial flutter but spontaneously converted. He has been on anticoagulation therapy. He has undergone cardiac catheterizations in the outpatient setting through his primary table runner, most recently 2016 with reportedly nonobstructive CAD. According to available records, he has had episodes of chest discomfort in the past with unremarkable troponin levels. He chronically has had palpitations described as a "flip" but this is typically very short-lived for 1 beat. On the day of presentation (09/15/2022), he developed much more profound symptoms that lasted approximately 1 hour. It felt as though his heart was beating fast and with this, came a left sided chest "ache" sensation. Palpitations were similar to his 2017 atrial flutter episode, but not as severe. He recalls undergoing outpatient monitoring in the past for 7 to 10 days without identifiable arrhythmia as far as he can recall. He remembers discussing a loop recorder in the past with his primary table runner, but ultimately did not undergo placement. While here, he has not had any further significant palpitations and he acknowledges that by the time he got to the ER, his symptoms had resolved. He had a few "flip" sensations while here, 3 in total lasting only 1 beat. He denies exertional chest pain, syncope, near syncope, shortness of breath, edema, or bleeding such as melena, hematochezia, or hematuria. He is active but recently underwent left total hip arthroplasty on 07/31/2022 and [facility] He is currently asymptomatic. Review of systems: As above. Review of systems otherwise negative/unremarkable. Family history: Mother had angina. Social history: He denies smoking or drug abuse. Occasional alcohol. He lives at home with his , Cintia. 2 sons. His accompanies him at the bedside. Allergies Allergy/AdvReac Type Severity Reaction Status Date / Time codeine AdvReac Intermediate NAUSEA, Verified 09/15/22 16:23 BLOOD PRESSURE DROPPED, DIZZINESS lorazepam [From Ativan] AdvReac Mild Confusion Verified 09/15/22 16:23 Home Medications Medication Instructions Recorded Confirmed Type cholecalciferol (vitamin D3) 25 1,000 unit PO QPM 11/13/18 09/15/22 History mcg (1,000 unit) capsule (Vitamin D3) cyanocobalamin (vitamin B-12) 500 mcg PO QAM 11/13/18 09/15/22 History 1,000 mcg tablet (Vitamin B-12) latanoprost 0.005 % eye drops 1 drp OPB QPM 11/13/18 09/15/22 History nitroglycerin 0.4 mg sublingual 0.4 mg sublingual UD PRN Chest Pain 09/14/19 09/15/22 History tablet (Nitrostat) calcium carbonate 600 mg-vitamin 1 cap PO BID 09/29/19 09/15/22 History D3 5 mcg (200 unit) capsule (Calcium 600 + D(3)) dorzolamide (PF) 2 % (PF) eye drops 1 drp OPB TID 09/29/19 09/15/22 History vitamins A,C,R-omha-klovov 2,148 1 tab PO BID 12/31/19 09/15/22 History mcg-113 mg-45 mg-17.4 mg tablet (PreserVision AREDS) pantoprazole 40 mg tablet,delayed 40 mg PO QAM heartburn 07/19/21 09/15/22 History release (Protonix) apixaban 5 mg tablet 5 mg PO BID 08/05/21 09/15/22 History docusate sodium 100 mg capsule 100 mg PO TID PRN Constipation 08/05/21 09/15/22 History (Colace) finasteride 5 mg tablet 5 mg PO QAM 07/02/22 09/15/22 History mirtazapine 15 mg tablet 15 mg PO HS 07/02/22 09/15/22 History acetaminophen 500 mg tablet 1,000 mg PO TID PRN Pain 09/15/22 09/15/22 History (Tylenol Extra Strength) polyethylene glycol 3350 17 gram 17 g PO QAM constipation 09/15/22 09/15/22 History oral powder packet (Miralax) rosuvastatin 10 mg tablet 10 mg PO HS 09/15/22 09/15/22 History metoprolol succinate 100 mg 100 mg PO PM #30 tabs 09/16/22 Rx tablet,extended release 24 hr Patient History Medical History (Updated 09/16/22 @ 16:35 by Rohit Diaz MD) Arthritis of left hip Asbestosis Atrial flutter ELIQUIS BID Coronary atherosclerosis of [place] coronary vessel Mild CAD per 2016 cath per cardio records No hx of stents or bypass Encounter for pre-operative examination GERD (gastroesophageal reflux disease) controlled, stable per pt Glaucoma AND MACULAR DEGENERATION; legally blind Hiatal hernia HTN (hypertension) controlled, stable per pt Hyperlipidemia Liver cirrhosis secondary to JONES Per records Lumbar stenosis with neurogenic claudication Splenomegaly Surgical History H/O cardiac catheterization 2009, 2012, 2016-[facility]NO ST[facility]; [facility] [place] History of colonoscopy History of esophagogastroduodenoscopy (EGD) History of herniorrhaphy X 2 Hx laparoscopic cholecystectomy (08/03/21) Laparoscopic Cholecystectomy and Liver Biopsy- Panchito Mena, Grade 2 view, MCA 3, ETT 7.5. Hx of cystoscopy Family History Father Cancer Mother Heart disease Social History Smoking Status: Former smoker Tobacco Type: Cigarettes Smoking End Date: 1998; Second Hand Exposure: No; Do You Dip or Chew Tobacco: No; Tobacco Cessation Education Requested by Patient: No Hx Alcohol Use: Yes Alcohol type: beer Hx Substance Use: No Preferred Language: Greenlandic Communication Ability: Effective Communication Ability Comment: IMPAIRED VISION DUE TO MACULAR DEGENERATION/G [place] Visual Impairment: Limited Hearing Ability: Normal Community Fundraiser Required: No Beliefs That Will Affect Care: None marital status: Current Living Situation: Spouse current occupational status: retired How many Children do You have: 2 Other Information That Helps Us Care for You: No Feels Safe at Home: Yes Safety Concerns: Feels Safe At This Time Diet: regular during the past year weight has: remained stable Assistive Devices: Denture - Lower Physical Exam Physical Exam: Gen.: No acute distress. Alert and oriented. HEENT: Anicteric sclera. Neck: No JVD. No bruits. Normal carotid upstrokes bilaterally. Cardiac: No ventricular heave. Regular. Normal S1-S2. No murmurs, rubs, or gallops. Pulmonary: Clear to auscultation bilaterally without wheezes, rales, or rhonchi. Abdomen: Soft, nontender, nondistended, with normoactive bowel sounds. No bruits noted. Extremities: 2+ radial pulses bilaterally. 2+ posterior tibialis pulses bilaterally. Trace bilateral lower extremity edema. No cyanosis. Psychiatric: Affect appears appropriate. Results & Data Vital Signs (Past 12 Hours) Vital Signs Temp Pulse Resp BP Pulse Ox O2 Del Method 09/16/22 11:19 36.4 C L 75 18 122/76 96 Room Air 09/16/22 07:33 36.5 C 74 19 146/87 H 94 Room Air 09/16/22 03:38 36.4 C L 80 16 127/78 95 Room Air Intake & Output 09/14/22 09/15/22 09/16/22 09/17/22 06:59 06:59 06:59 06:59 Intake Total 300 / 300 480 / 480 Output Total 250 / 250 Balance 50 / 50 480 / 480 Weight 178 lb 9.191 oz 178 lb 9.191 oz Laboratory Results Laboratory Results - last 24 hr 09/15/22 09/15/22 09/16/22 14:35 18:08 00:27 WBC RBC Hgb Hct MCV MCH MCHC RDW Std Deviation RDW Coeff of Arlin Plt Count MPV Immature Gran % (Auto) Neut % (Auto) Lymph % (Auto) Hunt % (Auto) Eos % (Auto) Baso % (Auto) Neut # (Auto) Lymph # (Auto) Hunt # (Auto) Eos # (Auto) Baso # (Auto) Immature Gran # (Auto) Sodium Potassium Chloride Carbon Dioxide Anion Gap BUN Creatinine Est Cr Clr Drug Dosing Est GFR ( Amer) Est GFR (Non-Af Amer) BUN/Creatinine Ratio Glucose Estimat Average Glucose Hemoglobin A1c Calcium Troponin I High Sens 5.2 5.5 9.3 Triglycerides Cholesterol LDL Cholesterol, Calc VLDL Cholesterol, Calc HDL Cholesterol Cholesterol/HDL Ratio 09/16/22 09/16/22 09/16/22 06:39 06:39 06:39 WBC 4.85 RBC 4.50 L Hgb 13.8 L Hct 40.5 L MCV 90.0 MCH 30.7 MCHC 34.1 RDW Std Deviation 42.7 RDW Coeff of Arlin 13.1 Plt Count 141 MPV 9.4 Immature Gran % (Auto) 0.2 Neut % (Auto) 47.7 Lymph % (Auto) 36.5 Hunt % (Auto) 11.3 Eos % (Auto) 3.5 Baso % (Auto) 0.8 Neut # (Auto) 2.31 Lymph # (Auto) 1.77 Hunt # (Auto) 0.55 Eos # (Auto) 0.17 Baso # (Auto) 0.04 Immature Gran # (Auto) 0.01 Sodium 138 Potassium 4.0 Chloride 107 Carbon Dioxide 23 Anion Gap 8 BUN 14 Creatinine 0.64 Est Cr Clr Drug Dosing 95.1 Est GFR ( Amer) 108.7 Est GFR (Non-Af Amer) 93.8 BUN/Creatinine Ratio 21.9 H Glucose 114 H Estimat Average Glucose Hemoglobin A1c Calcium 9.1 Troponin I High Sens 5.4 Triglycerides 216 H Cholesterol 98 LDL Cholesterol, Calc 23 VLDL Cholesterol, Calc 43 H HDL Cholesterol 32 Cholesterol/HDL Ratio 3.1 09/16/22 06:39 WBC RBC Hgb Hct MCV MCH MCHC RDW Std Deviation RDW Coeff of Arlin Plt Count MPV Immature Gran % (Auto) Neut % (Auto) Lymph % (Auto) Hunt % (Auto) Eos % (Auto) Baso % (Auto) Neut # (Auto) Lymph # (Auto) Hunt # (Auto) Eos # (Auto) Baso # (Auto) Immature Gran # (Auto) Sodium Potassium Chloride Carbon Dioxide Anion Gap BUN Creatinine Est Cr Clr Drug Dosing Est GFR ( Amer) Est GFR (Non-Af Amer) BUN/Creatinine Ratio Glucose Estimat Average Glucose 128 Hemoglobin A1c 6.1 H Calcium Troponin I High Sens Triglycerides Cholesterol LDL Cholesterol, Calc VLDL Cholesterol, Calc HDL Cholesterol Cholesterol/HDL Ratio Diagnostic Findings On 09/16/2022, chart, discharge summary from 03/26/2017 and cardiology notes from March 2017 reviewed. Echo 09/16/2022: Normal LV size, wall motion, systolic function. EF 65 to 70%. Mild LVH. No significant valvular abnormalities. Normal RVSP. ECG personally reviewed 09/15/2022 at 1234: Sinus rhythm [address]/T wave abnormality, improved from 07/31/2022. ECG 09/15/2022 at 1404: Sinus rhythm [address]/T wave abnormality. History and physical report reviewed. Labs notable for mild anemia, elevated D-dimer, normal renal function, negative high-sensitivity troponin x5. CTA chest 09/15/2022: No PE. Small right pleural effusion. Asbestos related pleural disease. Cirrhosis. Findings per radiology. Telemetry personally reviewed: Sinus rhythm. No arrhythmia. No significant ectopy identified. Medications Administered Current Inpatient Medications Acetaminophen (Acetaminophen 325 Mg Tab) 650 mg PO Q4H PRN PRN Reason: Pain or Fever Stop: 10/15/22 17:20 Apixaban (Apixaban 5 Mg Tablet) 5 mg PO BID [facility] Stop: 10/15/22 20:59 Dorzolamide HCl (Dorzolamide Hcl 2% Oph Soln 10 Ml Btl) 1 drops OPB TID [facility] Stop: 10/15/22 20:59 Last Admin: 09/16/22 13:31 Dose: 1 drops Finasteride (Finasteride 5 Mg Tab) 5 mg PO QAM [facility] Stop: 10/16/22 08:59 Last Admin: 09/16/22 08:16 Dose: 5 mg Latanoprost (Latanoprost 0.005% Op Soln 2.5 Ml Btl) 1 drops OPB QPM [facility] Stop: 10/15/22 20:59 Last Admin: 09/15/22 22:00 Dose: 1 drops Metoprolol Tartrate (Metoprolol Tartrate 25 Mg Tab) 25 mg PO BID [facility] Stop: 10/15/22 20:59 Last Admin: 09/16/22 08:17 Dose: 25 mg Mirtazapine (Mirtazapine Tab 15 Mg Tab) 15 mg PO [facility] Stop: 10/15/22 20:59 Last Admin: 09/15/22 21:58 Dose: 15 mg Ondansetron HCl (Ondansetron Inj 2 Mg/Ml 2 Ml Vial) 4 mg IV Q6H PRN PRN Reason: Nausea Stop: 10/15/22 17:20 Pantoprazole Sodium (Pantoprazole 40 Mg Tab) [facility] Stop: 10/16/22 08:59 Last Admin: 09/16/22 08:18 Dose: 40 mg Polyethylene Glycol (Polyethylene (Miralax) 17 Gm Pack) 17 gm [facility] [place] Stop: 10/16/22 08:59 Last Admin: 09/16/22 10:53 Dose: Not Given Rosuvastatin Calcium (Rosuvastatin Calcium 10 Mg Tab) 10 mg PO HS [facility] Stop: 10/15/22 20:59 Last Admin: 09/15/22 21:58 Dose: 10 mg PG Care Time/CCT Total # of Minutes Spent Total Time Spent with Patient: Total time spent is greater than 50% in coordination of care (as documented) at patient's floor/unit and/or counseling patient: Coding Level of Care Code 74069 INT INP/OBS CARE 2/55MIN Diagnoses Paroxysmal atrial flutter I48.92 Chest pain R07.2 Chest pain type: precordial pain Palpitations R00.2 Current use of penitentiary anticoagulation Z79.01 CAD (coronary artery disease) I25.10 (2) Chest pain Chest pain type: precordial pain Qualified Code(s): R07.2 - Precordial pain
--- NOTE | 2022-09-16 16:00 | Discharge Summary ---
Date of Service September 16, 2022 Admission HPI Per Admitting Provider Alessandro Christensen is a 76 year old male who presents to the ER with chest pain. Midsternal chest pain without radiation. Started at 10:30am. Occurred at rest. Lasted for 1.5-2 hours. Severity 8/10. Constant. Associated palpitations. Improved with rest. No worse on exertion/inspiration/position. Took nitroglycerin which did not help. Resolved when he came to the ER between the triage and the ER room. Had similar feelings previously. Describes his heart turning over which sometimes lasts a minute and resolve on their own. Occasional associated with palpitations. Lately occuring more frequently on a daily basis. Per last cardiology note in March 2022 he was noted to have mild coronary artery disease and atrial fibrillation with last cardiac catheterization in 2015 (results not available on admission). Discharge Data Allergies Allergy/AdvReac Type Severity Reaction Status Date / Time codeine AdvReac Intermediate NAUSEA, Verified 09/15/22 16:23 BLOOD PRESSURE DROPPED, DIZZINESS lorazepam [From Ativan] AdvReac Mild Confusion Verified 09/15/22 16:23 Consultations 09/15/22 14:53 ED Decision to Admit Stat 09/16/22 07:36 Consult Cardiology Routine Ordered Studies 09/15/22 13:21 CT angio chest PE protocol Stat Hospital Course (1) Chest pain: Low suspicion of ACS vs. more likely arrhythmia Risk factors for ACS including Hyperlipidemia, mild CAD on scan in 2016 ASA 324 mg PO now Patient already on Eliquis and given low suspicion of ACS will defer switching this to heparin, hold Eliquis in low probability of needing cardiac catheterization following dobutamine stress echo in AM HbA1C and lipid profile with AM labs Monitoring on telemetry for arrhythmia - recommend following up with his transportation economics teacher for outpatient phototypesetting equipment monitor if not caught overnight on telemetry. (2) Resting tremor: Recommended follow up with the primary care physcian regarding this (3) History of atrial fibrillation: Eliquis temporarily on hold in case of needing cardiac cath following stress testing Continue metoprolol for rate control (4) 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: (5) GERD (gastroesophageal reflux disease): Continue pantoprazole (6) BPH (benign prostatic hyperplasia): Continue finasteride Plan VTE Prophylaxis - Eliquis on hold as above Diet - heart healthy Disposition - observation to PCU Discharge Plan Discharge Items Patient Disposition: Home - Self-Care Reason For Visit: CHEST PAIN R/O [place] Discharge Diagnosis: chest pain Activity: Resume your previous activity Non-emergency contact: Primary Care Provider Call non-emergency contact if: you have any medication questions Follow-up/Referrals: Jordan Heard, THEORETICAL PHYSICIST-C [Primary Care Provider] - Diet: Heart Healthy Addtl Attending Provider Instructions: recommend followup with the [place] transportation economics teacher within the next 2 weeks. WIll increase your metoprolol to 100 mg PO PM. Pending Studies at Discharge: No Stand-Alone Forms: My Pirq, Smoking Cessation Medications and DC Order Prescriptions: New metoprolol succinate 100 mg tablet extended release 24 hr 100 mg PO PM Qty: 30 0RF Continued latanoprost 0.005 % Drops 1 drp OPB QPM Patient Comments: BOTH EYES cyanocobalamin (vitamin B-12) [Vitamin B-12] 1,000 mcg Tablet 500 mcg PO QAM cholecalciferol (vitamin D3) [Vitamin D3] 1,000 unit Capsule 1,000 unit PO QPM nitroglycerin [Nitrostat] 0.4 mg Tablet, Sublingual 0.4 mg sublingual UD PRN (Reason: Chest Pain) Patient Comments: NOT FOR A LONG TIME , YEARS Rx Instructions: PLACE ONE TABLET UNDER THE TONGUE EVERY 5 MINUTES FOR UP TO 3 DOSES OVER 15 MINUTES IF NEEDED FOR CHEST PAIN PreserVision AREDS [id number] Tablet 1 tab PO BID dorzolamide (PF) 2 % Drops 1 drp OPB TID Patient Comments: BOTH EYES Calcium 600 + D(3) 600 mg calcium- 200 unit Capsule 1 cap PO BID pantoprazole [Protonix] 40 mg tablet,delayed release (DR/EC) 40 mg PO QAM polyethylene glycol 3350 [Miralax] 17 gram powder in packet 17 g PO QAM rosuvastatin 10 mg Tablet 10 mg PO HS acetaminophen [Tylenol Extra Strength] 500 mg tablet 1,000 mg PO TID PRN (Reason: Pain) docusate sodium [Colace] 100 mg Capsule 100 mg PO TID PRN (Reason: Constipation) apixaban 5 mg Tablet 5 mg PO BID mirtazapine 15 mg Tablet 15 mg PO HS finasteride 5 mg Tablet 5 mg PO QAM Discontinued metoprolol tartrate 50 mg Tablet 25 mg PO BID Discharge Orders: Discharge Order (Routine); Ordered 09/16/22 Ordered By: Ari Her Admission Data Admit Date/Time: 09/15/22 16:04 Attending Provider: Ari Her Admit Provider: Efraín Hyde Primary Care Provider: Jordan Heard Other Providers: Efraín Hyde ; Familia Fisher ; Tenzin Holly ; Justen Horner ; Camron العلي ; Brendan Pantoja ; Malcom Ace Jr ; Rohit Diaz ; Velvet Cook ; Nathalie Kumari ; Cyril Botello ; Aristides Blackburn ; Catrachito Schreiber ; Harini Ryan ; Olivia Hernandez ; Uriel Felder ; Carmine Britt ; Camron Gupta V. Coding Diagnoses Chest pain R07.2 Chest pain type: precordial pain Resting tremor G25.2 History of atrial fibrillation Z86.79 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 K75.81; K74.60 GERD (gastroesophageal reflux disease) K21.9 BPH (benign prostatic hyperplasia) N40.0
--- NOTE | 2022-09-17 21:23 | Electrocardiogram Report ---
Test Reason : Blood Pressure : / mmHG Vent. Rate : 089 BPM Atrial Rate : 089 BPM P-R Int : 138 ms QRS Dur : 082 ms QT Int : 380 ms P-R-T Axes : 023 038 066 degrees QTc Int : 462 ms Normal sinus rhythm Low voltage QRS Nonspecific ST and T wave abnormality Abnormal ECG When compared with ECG of 15-SEP-2022 12:34, No significant change Confirmed by Rohit Diaz ([id number]) on 09/17/2022 9:23:14 PM Referred By: REFERRED SELF Confirmed By:Rohit Diaz
== END 2022-09-16 16:46 | disposition home or self-care (01) ==
LOC: 2S 12:27 → ED 12:27 → SUATTDRO 16:04 → 2S 16:28

== ENCOUNTER 2023-12-15 22:50 | Observation (INO) ==
--- NOTE | 2023-12-15 23:30 | Emergency Department Note ---
Impression & Plan Stable angina ED Provider Note NAME: GINGER YBARRA AGE: 78 SEX: M : 1945 ARRIVES VIA: Walk-In INFORMANT: Patient, ED PROVIDER(S): Rhianna Luna MD CHIEF COMPLAINT: Chest pain HPI: This an 78-year-old male presents for chest pain. Patient was just evaluated in the previous few hours for this exact complaint. Patient's had chest pain intermittently and had resolved while in the emergency department. He has had 2 negative troponins today with reassuring EKG. Patient had chest pain while standing up and walking to his car and presented back here for the symptoms. does state that he was seen at the [facility] previously and had a cardiac catheterization that showed 40% plus blockages in his artery multiple years ago. Has not had follow-up since then for retesting. ROS: See above HPI for pertinent positives & negatives. A total of 10 systems reviewed and were otherwise negative. PAST MEDICAL HISTORY: See Below PAST SURGICAL HISTORY: See Below FAMILY HISTORY: See Below SOCIAL HISTORY: See Below HOME MEDICATIONS: See Below ALLERGIES: See Below VITALS: See Below PHYSICAL EXAMINATION: General: resting comfortably in no acute distress Head: Normocephalic and atraumatic Eyes: Normal inspection, extraocular muscles intact Ear, nose, throat: Normal external exam Neck: Normal range of motion Respiratory: lungs clear to auscultation bilaterally Cardiovascular: Regular rate/rhythm, no murmur GI: soft, nontender, no guarding or rebound Extremities: nontender, moves all extremities Neuro: The patient awake and alert, appropriately conversive, no focal deficits, symmetric faces Skin: Warm, dry, and intact MEDICAL DECISION MAKING: this an 78-year-old male presenting for chest pain. Patient was seen and screened here previously and discharged at his request. He now presents again for chest pain. With his new exertional symptoms, consider stable angina. Will admit for cardiac workup. Case discussed with Dr. Tee. Differential diagnosis: ACS, stable angina, unstable angina, PE ER treatment provided: See below Independent History obtained from: Diagnostics interpreted by me: ECG: ECG independently interpreted by me with normal sinus rhythm, rate of 88, normal axis, normal VA, normal QRS, normal QTc, no ST segment elevations consistent with STEMI criteria Cardiac Monitoring: An order was placed for continuous cardiac monitoring. The monitor shows a rate of 90 with sinus rhythm. Laboratory studies: As stated above and show below. Imaging studies: See below. Past Med/Surg History Problem List (Updated 12/16/23 @ 11:45 by Rhianna Luna MD) Stable angina (Acute) Chest pain (Acute) CAD (coronary artery disease) Paroxysmal atrial flutter Resting tremor Chest pain (Acute) Current use of chcf anticoagulation (Acute) Lab test negative for COVID-19 virus (Acute) S/P total left hip arthroplasty BPH (benign prostatic hyperplasia) Gross hematuria Urinary symptom or sign Arthritis of left hip Leg pain, anterior (Acute) Lumbar stenosis with neurogenic claudication (Chronic) Moderate at L4-L5 Spondylolisthesis at L4-L5 level (Chronic) Hiatal hernia Anxiety Depression Gastritis (Acute) Unspecified essential hypertension (Acute) Diverticulosis of colon (Acute) Esophagitis Functional dyspepsia (Acute) Cholelithiasis Epigastric abdominal pain Constipation LLQ abdominal pain Dyspnea (Acute) Hypoxia (Acute) Elevated brain natriuretic peptide (BNP) level (Acute) Hyponatremia (Acute) Delirium Constipation GERD (gastroesophageal reflux disease) NAFLD (nonalcoholic fatty liver disease) Degenerative joint disease of left hip Hx laparoscopic cholecystectomy (08/03/21) Laparoscopic Cholecystectomy and Liver Biopsy- Panchito Mena, Grade 2 view, MCA 3, ETT 7.5. 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 Per records Coronary atherosclerosis of [place] coronary vessel (Acute) Mild CAD per 2016 cath per cardio records No hx of stents or bypass Medical History Splenomegaly Lumbar stenosis with neurogenic claudication Encounter for pre-operative examination HTN (hypertension) Asbestosis Hiatal hernia GERD (gastroesophageal reflux disease) Glaucoma Hyperlipidemia Surgical History Hx of cystoscopy History of esophagogastroduodenoscopy (EGD) History of herniorrhaphy History of colonoscopy H/O cardiac catheterization Family History Father Cancer Mother Heart disease Social History Smoking Status: Former smoker Tobacco Type: Cigarettes Second Hand Exposure: No; Do You Dip or Chew Tobacco: No; Tobacco Cessation Education Requested by Patient: No Hx Alcohol Use: Yes Alcohol type: beer Hx Substance Use: No Preferred Language: Trinidadian Communication Ability: Effective Communication Ability Comment: IMPAIRED VISION DUE TO MACULAR DEGENERATION/GLAUCOMA Visual Impairment: Limited Hearing Ability: Normal Analysis Manager Required: No Beliefs That Will Affect Care: None marital status: Current Living Situation: Spouse current occupational status: retired How many Children do You have: 2 Other Information That Helps Us Care for You: No Feels Safe at Home: Yes Safety Concerns: Feels Safe At This Time Diet: regular during the past year weight has: remained stable Assistive Devices: Cane Allergies Allergies Allergy/AdvReac Type Severity Reaction Status Date / Time codeine AdvReac Intermediate NAUSEA, Verified 12/16/23 00:07 BLOOD PRESSURE DROPPED, DIZZINESS lorazepam [From Ativan] AdvReac Intermediate Confusion Verified 12/16/23 00:07 Home Meds Home Medications Medication Instructions Recorded Confirmed cholecalciferol (vitamin D3) 25 1,000 unit PO QPM 11/13/18 12/16/23 mcg (1,000 unit) capsule (Vitamin D3) cyanocobalamin (vitamin B-12) 500 mcg PO QAM 11/13/18 12/16/23 1,000 mcg tablet (Vitamin B-12) latanoprost 0.005 % eye drops 1 drp OPB QPM 11/13/18 12/16/23 nitroglycerin 0.4 mg sublingual 0.4 mg sublingual UD PRN Chest Pain 09/14/19 12/16/23 tablet (Nitrostat) calcium carbonate 600 mg-vitamin 1 cap PO QAM 09/29/19 12/16/23 D3 5 mcg (200 unit) capsule (Calcium 600 + D(3)) dorzolamide (PF) 2 % (PF) eye drops 1 drp OPB TID 09/29/19 12/16/23 vitamins A,C,S-xtto-[id number] 2,148 1 tab PO BID 12/31/19 12/16/23 mcg-113 mg-45 mg-17.4 mg tablet (PreserVision AREDS) apixaban 5 mg tablet 5 mg PO BID 08/05/21 12/16/23 finasteride 5 mg tablet 5 mg PO QAM 07/02/22 12/16/23 acetaminophen 500 mg tablet 1,000 mg PO TID PRN Pain 09/15/22 12/16/23 (Tylenol Extra Strength) polyethylene glycol 3350 17 gram 17 g PO QAM constipation 09/15/22 12/16/23 oral powder packet (Miralax) rosuvastatin 10 mg tablet 10 mg PO QPM 09/15/22 12/16/23 amoxicillin 500 mg tablet 2,000 mg PO DIRECTED PRN 1 HR 12/15/23 12/16/23 PRIOR TO DENTAL PROCEDURES food supplemt, lactose-reduced 1 ea PO DAILY 12/15/23 12/16/23 (Ensure oral liquid) tamsulosin 0.4 mg capsule 0.4 mg PO QPM 12/15/23 12/16/23 Previous Rx's Medication Instructions Recorded metoprolol succinate 100 mg 100 mg PO PM #30 tabs 09/16/22 tablet,extended release 24 hr mirtazapine 30 mg tablet 30 mg PO HS functional dyspepsia 07/17/23 #30 tabs pantoprazole 40 mg tablet,delayed 40 mg PO DAILY heartburn #30 tabs 07/17/23 release (Protonix) Results & Data (ED) Vital Signs Vital Signs - 24 hr 12/15/23 22:52 12/15/23 23:03 12/15/23 23:55 Temperature 36.9 C Temperature Source Temporal Artery Scan Pulse Rate 93 H 90 Pulse Rate [Right] 83 Pulse Rhythm [Right] Regular Pulse Strength [Right] Normal Respiratory Rate 19 16 Respiratory Effort / Characteristics Non-Labored Spontaneous Non-Labored Spontaneous Respiratory Depth Normal Normal Blood Pressure 164/92 H Blood Pressure [Right Arm] 137/93 Blood Pressure Mean 116 Blood Pressure Mean [Right Arm] 107 Blood Pressure Position [Right Arm] Lying Pulse Oximetry 96 98 Oxygen Delivery Method Room Air Room Air Sepsis Recent Fever Within 48 Hours No Sepsis New/Unexplained Change in Mental Status N/A Sepsis Action Taken by Nursing No Action Required Laboratory Data 12/16/23 08:06 12/16/23 08:06 Administered Medications Apixaban (Apixaban 5 Mg Tablet) 5 mg PO BID ENEDINA Stop: 01/15/24 08:59 Last Admin: 12/16/23 09:21 Dose: 5 mg Documented By: AM Pantoprazole Sodium (Pantoprazole 40 Mg Tab) 40 mg PO DAILY ENEDINA Stop: 01/15/24 08:59 Last Admin: 09/02/24 09:21 Dose: 40 mg Documented By: AM Discontinued Medications Aspirin (Aspirin Chew 324 Mg) 324 mg PO NOW STA Stop: 12/15/23 23:51 Last Admin: 12/15/23 23:54 Dose: 324 mg Documented By: DAVID Pneumococcal 20-Valent Conj Vacc (Pneumococcal Vaccine (Pcv20) 20-Davida Conj-Dip Crm/Pf 0.5 Ml Syr) 0.5 ml IM .ONCE ONE Stop: 12/16/23 09:01 Last Admin: 12/16/23 09:40 Dose: Not Given Documented By: AM Discharge Plan Visit Data Chief Complaint: Chest Pain Stated Complaint: CHEST PAIN, LITTLE DIZZY ED Provider: Rhianna Luna Discharge Problem: Stable angina Patient Disposition: Admitted As Inpatient Discharge Instructions Interventions: ED Discharge Assessment Last Done: 12/16/23 01:14
--- NOTE | 2023-12-15 23:38 | History & Physical Report ---
Date of Service December 15, 2023 Assessment & Plan (1) Chest pain: Plan: -Patient with substernal chest pain that has been on and off for many years has been getting worse. Does endorse shortness of breath on exertion. -Troponin negative x 2. Will continue trending troponin every 6 hours. -No EKG changes. -Chest x-ray showed no acute pulmonary findings. Did show some numerous calcified pleural plaques. -Does state that he has a lung condition that he thinks is mesothelioma that he follows with the [facility]. -Did have a myocardial stress test back on 08/22/2023 which showed a negative myocardial perfusion study for ischemia or infarct. -Will get echo in the a.m. and consult cardiology given patient's significant cardiac history. Aspirin given in the ED. -Continue on Crestor 10 mg and metoprolol 100 mg. -Will make n.p.o. at this time pending cardiac evaluation -Hemoglobin A1c, lipid panel in the AM. (2) CAD (coronary artery disease): Plan: -As above continue on metoprolol and Crestor. (3) Paroxysmal atrial flutter: Plan: -Patient is currently in atrial flutter. -Continue on Eliquis 5 mg twice daily. 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 -Monitor PT/INR in the morning. (5) GERD (gastroesophageal reflux disease): Plan: -May ultimately be the underlying cause of patient's chest pain. -Continue on Protonix daily. Plan Fluids: None Nutrition: N.p.o. in case cardiac intervention Code status: Full code DVT ppx: Eliquis Consults: Cardiology Dispo: PCU/pelvic History of Present Illness Chief Complaint: Chest pain rule out Primary Care Provider: ABRAHAM JuneC Patient is a 78-year-old male with past medical history of CAD, atrial flutter, BPH, GERD, who presents to the hospital with chest pain. Patient was seen in the ED for chest pain but was found to have a negative troponin and EKG changes and was discharged earlier today. As patient was walking out to his car he began to have chest pain again and was brought back into the ED and admitted. Patient has been having chest pain on and off for years and has seen the [facility] distributor advertising material about these complaints. He has a history of a cardiac catheterization many years ago which showed 40% stenosis but no stents were placed. Patient's most recent episode of chest pain started yesterday around noon which was substernal and felt like pressure. This continued to be on and off throughout the day. Started to get worse this morning throughout the day. Has no radiating pain. States that he has had some radiating pain to the neck on previous occasion with his chest pain. Denies chest pain getting worse with breathing or on palpitation. States that he has been getting shortness of breath on exertion for some time and that has been getting worse recently. Also states that he sometimes has orthopnea but is not consistent. Allergies Allergy/AdvReac Type Severity Reaction Status Date / Time codeine AdvReac Intermediate NAUSEA, Verified 12/16/23 00:07 BLOOD PRESSURE DROPPED, DIZZINESS lorazepam [From Ativan] AdvReac Intermediate Confusion Verified 12/16/23 00:07 Home Medications Medication Instructions Recorded Confirmed Type cholecalciferol (vitamin D3) 25 1,000 unit PO QPM 11/13/18 12/16/23 History mcg (1,000 unit) capsule (Vitamin D3) cyanocobalamin (vitamin B-12) 500 mcg PO QAM 11/13/18 12/16/23 History 1,000 mcg tablet (Vitamin B-12) latanoprost 0.005 % eye drops 1 drp OPB QPM 11/13/18 12/16/23 History nitroglycerin 0.4 mg sublingual 0.4 mg sublingual UD PRN Chest Pain 09/14/19 12/16/23 History tablet (Nitrostat) calcium carbonate 600 mg-vitamin 1 cap PO QAM 09/29/19 12/16/23 History D3 5 mcg (200 unit) capsule (Calcium 600 + D(3)) dorzolamide (PF) 2 % (PF) eye drops 1 drp OPB TID 09/29/19 12/16/23 History vitamins A,C,J-ccks-jowyfv 2,148 1 tab PO BID 12/31/19 12/16/23 History mcg-113 mg-45 mg-17.4 mg tablet (PreserVision AREDS) apixaban 5 mg tablet 5 mg PO BID 08/05/21 12/16/23 History finasteride 5 mg tablet 5 mg PO QAM 07/02/22 12/16/23 History acetaminophen 500 mg tablet 1,000 mg PO TID PRN Pain 09/15/22 12/16/23 History (Tylenol Extra Strength) polyethylene glycol 3350 17 gram 17 g PO QAM constipation 09/15/22 12/16/23 History oral powder packet (Miralax) rosuvastatin 10 mg tablet 10 mg PO QPM 09/15/22 12/16/23 History metoprolol succinate 100 mg 100 mg PO PM #30 tabs 09/16/22 12/16/23 Rx tablet,extended release 24 hr mirtazapine 30 mg tablet 30 mg PO HS functional dyspepsia 07/17/23 12/16/23 Rx #30 tabs pantoprazole 40 mg tablet,delayed 40 mg PO DAILY heartburn #30 tabs 07/17/23 12/16/23 Rx release (Protonix) amoxicillin 500 mg tablet 2,000 mg PO DIRECTED PRN 1 HR 12/15/23 12/16/23 History PRIOR TO DENTAL PROCEDURES food supplemt, lactose-reduced 1 ea PO DAILY 12/15/23 12/16/23 History (Ensure oral liquid) tamsulosin 0.4 mg capsule 0.4 mg PO QPM 12/15/23 12/16/23 History Past Med/Surg History Problem List (Updated 12/15/23 @ 22:36 by Rhianna Luna MD) Chest pain (Acute) CAD (coronary artery disease) Paroxysmal atrial flutter Resting tremor Chest pain (Acute) Current use of skilled nursing anticoagulation (Acute) Lab test negative for COVID-19 virus (Acute) S/P total left hip arthroplasty BPH (benign prostatic hyperplasia) Gross hematuria Urinary symptom or sign Arthritis of left hip Leg pain, anterior (Acute) Lumbar stenosis with neurogenic claudication (Chronic) Moderate at L4-L5 Spondylolisthesis at L4-L5 level (Chronic) Hiatal hernia Anxiety Depression Gastritis (Acute) Unspecified essential hypertension (Acute) Diverticulosis of colon (Acute) Esophagitis Functional dyspepsia (Acute) Cholelithiasis Epigastric abdominal pain Constipation LLQ abdominal pain Dyspnea (Acute) Hypoxia (Acute) Elevated brain natriuretic peptide (BNP) level (Acute) Hyponatremia (Acute) Delirium Constipation GERD (gastroesophageal reflux disease) NAFLD (nonalcoholic fatty liver disease) Degenerative joint disease of left hip Hx laparoscopic cholecystectomy (08/03/21) Laparoscopic Cholecystectomy and Liver Biopsy- Panchito Mena, DO Grade 2 view, MCA 3, ETT 7.5. 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 Per records Coronary atherosclerosis of [place] coronary vessel (Acute) Mild CAD per 2016 cath per cardio records No hx of stents or bypass Medical History Splenomegaly Lumbar stenosis with neurogenic claudication Encounter for pre-operative examination HTN (hypertension) Asbestosis Hiatal hernia GERD (gastroesophageal reflux disease) Glaucoma Hyperlipidemia Surgical History Hx of cystoscopy History of esophagogastroduodenoscopy (EGD) History of herniorrhaphy History of colonoscopy H/O cardiac catheterization Family History Father Cancer Mother Heart disease Social History Smoking Status: Former smoker Tobacco Type: Cigarettes Second Hand Exposure: No; Do You Dip or Chew Tobacco: No; Tobacco Cessation Education Requested by Patient: No Hx Alcohol Use: Yes Alcohol type: beer Hx Substance Use: No Preferred Language: Spanish Communication Ability: Effective Communication Ability Comment: IMPAIRED VISION DUE TO MACULAR DEGENERATION/GLAUCOMA Visual Impairment: Limited Hearing Ability: Normal Tablet Repair Required: No Beliefs That Will Affect Care: None marital status: Current Living Situation: Spouse current occupational status: retired How many Children do You have: 2 Other Information That Helps Us Care for You: No Feels Safe at Home: Yes Safety Concerns: Feels Safe At This Time Diet: regular during the past year weight has: remained stable Assistive Devices: Cane Review of Systems Review of Systems: All systems reviewed & are unremarkable except as noted in Subjective Physical Exam Physical Exam: Constitutional: well-appearing, no acute distress HEENT: NCAT, no conjunctival injection CV: regular rhythm, no murmur appreciated, extremities well-perfused, no LE edema Resp: CTABL, no wheezes/rales/rhonchi appreciated, no increased work of breathing GI: soft, nondistended, nontender, BS normoactive MSK: no gross deformities appreciated Skin: warm, dry, no rash appreciated Neuro: alert, oriented, no focal neurologic deficit appreciated Results & Data Results & Data Vital Signs (Past 12 Hours) Vital Signs Temp Pulse Resp BP Pulse Ox O2 Del Method 12/15/23 23:03 90 12/15/23 22:52 36.9 C 93 H 19 164/92 H 96 Room Air Supervising Physician Co-Signing Physician Notes Attending addendum: I have physically seen this patient, have supervised the medical residents activities, and agree with the H&P unless as otherwise noted. Assessment and Plan: Chest pain/CAD/paroxysmal atrial flutter/chronic anticoagulation/hypertension- The patient will be admitted to telemetry for serial cardiac enzymes, serial EKG's, cardiac rhythm monitoring and a 2-D echocardiogram with Dopplers. Patient initially had assessment in the ED which was negative, but was told that he should return if symptoms occurred, and since his symptoms occurred while he was walking out to his car from the emergency department, he was then presented for admission. Initial troponin was 4.0, with follow-up 5.1 Continue Eliquis 5 mg p.o. 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 ALT has been normal INR 1.1 Continue pantoprazole BPH with LUTS- Continue tamsulosin Resident Activity Tracking Resident Involvement: Resident Care Provided Care Provided: Adult Hospital Medicine
[2023-12-15] MEDS: ASPIRIN CHEW 324 MG PO STA (23:54)
[2023-12-16] MEDS ORDERED: ACETAMINOPHEN 325 MG TAB PO PRN (01:58)
[2023-12-16] MEDS ORDERED: ONDANSETRON INJ 2 MG/ML 2 ML VIAL IV PRN (01:58)
--- NOTE | 2023-12-16 06:41 | Billing Data ---
Date of Service December 16, 2023 Coding Level of Care Code 31174 INT INP/OBS CARE
[2023-12-16 08:20] LABS: Hematocrit (blood only) 41.2 % (42.0-52.0); Hemoglobin 13.8 g/dl (14.0-18.0); Mean Corpuscular Hemoglobin 30.4 pg (25.0-34.0); Mean Corpuscular Hgb Conc 33.5 g/dL (32.0-36.0); Mean Corpuscular Volume 90.7 fL (80.0-100.0); Mean Platelet Volume 9.8 fL (9.4-12.4); Platelet Count 115 K/uL (130-400); RDW Coefficient of Variation 13.2 % (11.5-14.5); RDW Standard Deviation 44.1 fL (36.4-46.3); Red Blood Count 4.54 M/uL (4.70-6.10); White Blood Count 4.91 K/ul (4.8-10.8)
[2023-12-16 08:34] LABS: Albumin Globulin Ratio 1.1 (0.9-2); Albumin Level 3.7 gm/dl (3.4-5.0); BUN Creatinine Ratio 17.6 (10-20); Bilirubin,Total 0.6 mg/dl (0.2-1.0); Chol HDL Ratio 2.3 (0-5); Creatinine Clr Calc Pharmacy 86.6 ml/min; Est GFR (African American) 104.5 ml/min; Est GFR (Non-African American) 90.2 ml/min; Globulin 3.4 gm/dl (2.5-4.0); Magnesium 2.1 mg/dl (1.7-2.4); Potassium 4.3 mmol/L (3.5-5.1); Total Protein 7.1 gm/dl (6.0-8.3)
[2023-12-16 08:41] LABS: Estimated Average Glucose 134 mg/dl; Hemoglobin A1C 6.3 % (4.5-5.6)
[2023-12-16 08:42] LABS: INR 1.2 (0.9-1.1); Prothrombin Time 12.6 Seconds (9.0-12.0)
[2023-12-16] MEDS: PANTOprazole 40 MG TAB PO SCH (09:21)
[2023-12-16] MEDS: APIXABAN 5 MG TABLET PO SCH (09:21)
[2023-12-16] MEDS: PNEUMOCOCCAL VACCINE (PCV20) 20-VAL CONJ-DIP CRM/PF 0.5 ML SYR IM ONE (09:40)
--- NOTE | 2023-12-16 09:50 | Cardiology Consultation ---
Date of Consultation December 16, 2023 Assessment & Plan (1) Palpitations: (2) Paroxysmal atrial flutter: (3) CAD (coronary artery disease): (4) Current use of intermediate card tender anticoagulation: Plan ASSESSMENT/PLAN: 1. Palpitations: He denies any chest pain and describes palpitations ("flips"), similar to atrial flutter when diagnosed in 2017. This is a very chronic issue happening for years intermittently. Unfortunately, no episodes occurred while on monitor. We discussed his frustration but difficult to recommend specific therapy without documentation of what his symptoms represent. He and his expressed understanding. Continue telemetry while hospitalized. Upon discharge, recommend 30-day event monitor to try to correlate symptoms with rhythm/rate. Presentation is not consistent with acute coronary syndrome. High-sensitivity troponin remained normal and ECG stable without regional wall motion abnormalities on echo. 2. Paroxysmal atrial flutter: Diagnosed in 2017. Sinus rhythm while here. Plan as above. Continue anticoagulation for stroke risk reduction. Continue beta-nora. 3. CAD: Nonobstructive in 2016. Presentation is not consistent with acute coronary syndrome. No angina. Risk factor modification. Continue statin therapy. Recommend high intensity statin therapy. 4. Anticoagulation therapy: Continue anticoagulation for stroke risk reduction given history of atrial flutter although details of prior atrial flutter are not well-known. Monitor renal function and CBC. 5. Disposition: Follow-up with his primary anesthesiologist assistant certified through the PA system. He expressed interest in perhaps following with [facility] cardiology. We would be happy to see him if he would like to follow-up in our outpatient clinic. Recommend 30-day event monitor upon discharge. Plan of care communicated with primary hospitalist, Dr. Cervantes. Please call on-call anesthesiologist assistant certified with any further questions or concerns. Dr. Blackburn will be covering tomorrow. Today's visit was 48 minutes in duration, which includes dpxi-vn-[id number] time, counseling patient, coordinating care, reviewing records, and completing documentation. Thank you for allowing me to participate in the care of your patient. Please call for any other questions or concerns. Sincerely, Gary Diaz M.D. History of Present Illness Reason for Consultation: "CP r/o, h/o afib &cath with 40% blockage years ago" Requesting Physician: Dr. Zarate Attending Physician: Dinah Cervantes MD History of Present Illness Mr. Christensen is a pleasant 78-year-old gentleman with a history significant for paroxysmal atrial flutter, nonobstructive CAD, cirrhosis of the liver secondary to Jones, GERD, hypertension, and dyslipidemia. His primary anesthesiologist assistant certified is through the PA system. He was admitted on 12/16/2023 with palpitations. He denies any chest discomfort. He was in the ER on 12/15/2023 after presenting with palpitations, only to be discharged and on the way to his car, having another episode, prompting him to return to the ER. He describes these episodes as a "spell" when his heart "flips." He has had these symptoms intermittently for many years. He felt his heart beating and then it "turned," beating faster than usual. He had an episode the day before his presentation and his checked his heart rate and found it to be irregular but the heart rate remaining in the 70s. Symptoms typically spontaneously resolved within 2 minutes. After which, he can feel washed out briefly. He sometimes has associated left neck pain during an episode. There is no specific trigger for his symptoms. They can occur with exertion but also at rest. He does not exercise and is not very active in general due to some visual issues that he is being treated for in the outpatient setting. He has dyspnea on exertion while climbing stairs and other more strenuous activities and he has a consultation pending through the PA system with pulmonology. Since he has been hospitalized, he has not had any further palpitation episodes. He denies any chest pain, syncope, near syncope, edema, melena, or hematochezia. He had an episode of hematuria 1 week ago and underwent urine culture per his 's report. He expressed that he is frustrated that nobody is able to tell him why he is having symptoms. He recalls that his anesthesiologist assistant certified many years ago told him to not worry when he has the symptoms. Symptoms are similar to when he had atrial flutter diagnosed in 2017. He initially stated that he wants to stay another day for continued monitoring but then later stated that he wants to go home. He was reminded that his primary hospitalist will help coordinate discharge. He has undergone cardiac catheterizations in the outpatient setting through his primary anesthesiologist assistant certified, most recently 2015 with reportedly nonobstructive CAD. Review of systems: As above. Review of systems otherwise negative/unremarkable. Family history: Mother may have had CAD. Social history: Denies smoking or drug abuse. Occasional alcohol. Lives at home with his , Cintia. 2 adult sons. His was present at the bedside. Allergies Allergy/AdvReac Type Severity Reaction Status Date / Time codeine AdvReac Intermediate NAUSEA, Verified 12/16/23 00:07 BLOOD PRESSURE DROPPED, DIZZINESS lorazepam [From Ativan] AdvReac Intermediate Confusion Verified 12/16/23 00:07 Home Medications Medication Instructions Recorded Confirmed Type cholecalciferol (vitamin D3) 25 1,000 unit PO QPM 11/13/18 12/16/23 History mcg (1,000 unit) capsule (Vitamin D3) cyanocobalamin (vitamin B-12) 500 mcg PO QAM 11/13/18 12/16/23 History 1,000 mcg tablet (Vitamin B-12) latanoprost 0.005 % eye drops 1 drp OPB QPM 11/13/18 12/16/23 History nitroglycerin 0.4 mg sublingual 0.4 mg sublingual UD PRN Chest Pain 09/14/19 12/16/23 History tablet (Nitrostat) calcium carbonate 600 mg-vitamin 1 cap PO QAM 09/29/19 12/16/23 History D3 5 mcg (200 unit) capsule (Calcium 600 + D(3)) dorzolamide (PF) 2 % (PF) eye drops 1 drp OPB TID 09/29/19 12/16/23 History vitamins A,C,W-yuxy-bizwkc 2,148 1 tab PO BID 12/31/19 12/16/23 History mcg-113 mg-45 mg-17.4 mg tablet (PreserVision AREDS) apixaban 5 mg tablet 5 mg PO BID 08/05/21 12/16/23 History finasteride 5 mg tablet 5 mg PO QAM 07/02/22 12/16/23 History acetaminophen 500 mg tablet 1,000 mg PO TID PRN Pain 09/15/22 12/16/23 History (Tylenol Extra Strength) polyethylene glycol 3350 17 gram 17 g PO QAM constipation 09/15/22 12/16/23 History oral powder packet (Miralax) rosuvastatin 10 mg tablet 10 mg PO QPM 09/15/22 12/16/23 History metoprolol succinate 100 mg 100 mg PO PM #30 tabs 09/16/22 12/16/23 Rx tablet,extended release 24 hr mirtazapine 30 mg tablet 30 mg PO HS functional dyspepsia 07/17/23 12/16/23 Rx #30 tabs pantoprazole 40 mg tablet,delayed 40 mg PO DAILY heartburn #30 tabs 07/17/23 12/16/23 Rx release (Protonix) amoxicillin 500 mg tablet 2,000 mg PO DIRECTED PRN 1 HR 12/15/23 12/16/23 History PRIOR TO DENTAL PROCEDURES food supplemt, lactose-reduced 1 ea PO DAILY 12/15/23 12/16/23 History (Ensure oral liquid) tamsulosin 0.4 mg capsule 0.4 mg PO QPM 12/15/23 12/16/23 History Problem List (Updated 12/16/23 @ 13:43 by Rohit Diaz MD) Palpitations Stable angina (Acute) Chest pain (Acute) CAD (coronary artery disease) Paroxysmal atrial flutter Resting tremor Chest pain (Acute) Current use of intermediate card tender anticoagulation (Acute) Lab test negative for COVID-19 virus (Acute) S/P total left hip arthroplasty BPH (benign prostatic hyperplasia) Gross hematuria Urinary symptom or sign Arthritis of left hip Leg pain, anterior (Acute) Lumbar stenosis with neurogenic claudication (Chronic) Moderate at L4-L5 Spondylolisthesis at L4-L5 level (Chronic) Hiatal hernia Anxiety Depression Gastritis (Acute) Unspecified essential hypertension (Acute) Diverticulosis of colon (Acute) Esophagitis Functional dyspepsia (Acute) Cholelithiasis Epigastric abdominal pain Constipation LLQ abdominal pain Dyspnea (Acute) Hypoxia (Acute) Elevated brain natriuretic peptide (BNP) level (Acute) Hyponatremia (Acute) Delirium Constipation GERD (gastroesophageal reflux disease) NAFLD (nonalcoholic fatty liver disease) Degenerative joint disease of left hip Hx laparoscopic cholecystectomy (08/03/21) Laparoscopic Cholecystectomy and Liver Biopsy- Panchito Mena, Grade 2 view, MCA 3, ETT 7.5. Atrial flutter ELIQUIS BID Liver cirrhosis secondary to JONES Per records Coronary atherosclerosis of [place] coronary vessel (Acute) Mild CAD per 2016 cath per cardio records No hx of stents or bypass Patient History Medical History Splenomegaly Lumbar stenosis with neurogenic claudication Encounter for pre-operative examination HTN (hypertension) controlled, stable per pt Asbestosis Hiatal hernia GERD (gastroesophageal reflux disease) controlled, stable per pt Glaucoma AND MACULAR DEGENERATION; legally blind Hyperlipidemia Surgical History Hx of cystoscopy History of esophagogastroduodenoscopy (EGD) History of herniorrhaphy History of colonoscopy H/O cardiac catheterization Family History Father Cancer Mother Heart disease Social History Smoking Status: Former smoker Tobacco Type: Cigarettes Second Hand Exposure: No; Do You Dip or Chew Tobacco: No; Tobacco Cessation Education Requested by Patient: No Hx Alcohol Use: Yes Alcohol type: beer Hx Substance Use: No Preferred Language: Greek Communication Ability: Effective Communication Ability Comment: IMPAIRED VISION DUE TO MACULAR DEGENERATION/GLAUCOMA Visual Impairment: Limited Hearing Ability: Normal Hub Bander Required: No Beliefs That Will Affect Care: None marital status: Current Living Situation: Spouse current occupational status: retired How many Children do You have: 2 Other Information That Helps Us Care for You: No Feels Safe at Home: Yes Safety Concerns: Feels Safe At This Time Diet: regular during the past year weight has: remained stable Assistive Devices: Cane Physical Exam Physical Exam: Gen.: No acute distress. Alert. HEENT: Anicteric sclera. Neck: No JVD. No bruits. Normal carotid upstrokes bilaterally. Cardiac: Regular. Normal S1-S2. No murmurs, rubs, or gallops. Pulmonary: Clear to auscultation bilaterally without wheezes, rales, or rhonchi. Abdomen: Soft, nontender, nondistended, with normoactive bowel sounds. No bruits noted. Extremities: 2+ radial pulses bilaterally. 2+ posterior tibialis pulses bilaterally. No edema or cyanosis. Results & Data Vital Signs (Past 12 Hours) Vital Signs Temp Pulse Pulse Resp BP BP Pulse Ox 12/16/23 07:00 36.7 C 81 16 130/83 94 12/16/23 03:57 36.4 C L 75 16 114/76 94 12/16/23 02:19 77 12/16/23 02:01 37.0 C 72 16 151/86 H 94 12/16/23 01:58 37.0 C 72 16 151/86 H 94 12/16/23 01:14 80 16 122/70 96 12/15/23 23:55 83 16 137/93 98 12/15/23 23:03 90 12/15/23 22:52 36.9 C 93 H 19 164/92 H 96 O2 Del Method 12/16/23 07:00 Room Air 12/16/23 03:57 Room Air 12/16/23 02:19 12/16/23 02:01 Room Air 12/16/23 01:58 Room Air 12/16/23 01:14 Room Air 12/15/23 23:55 Room Air 12/15/23 23:03 12/15/23 22:52 Room Air Laboratory Results Laboratory Results - last 24 hr 12/16/23 08:06 WBC 4.91 RBC 4.54 L Hgb 13.8 L Hct 41.2 L MCV 90.7 MCH 30.4 MCHC 33.5 RDW Std Deviation 44.1 RDW Coeff of Arlin 13.2 Plt Count 115 L MPV 9.8 PT 12.6 H INR 1.2 H Sodium 138 Potassium 4.3 Chloride 105 Carbon Dioxide 27 Anion Gap 6 BUN 12 Creatinine 0.68 Est Cr Clr Drug Dosing 86.6 Est GFR ( Amer) 104.5 Est GFR (Non-Af Amer) 90.2 BUN/Creatinine Ratio 17.6 Glucose 109 H Estimat Average Glucose 134 Hemoglobin A1c 6.3 H Calcium 9.0 Magnesium 2.1 Total Bilirubin 0.6 AST 43 H ALT 43 Alkaline Phosphatase 77 Troponin I High Sens 5.2 Total Protein 7.1 Albumin 3.7 Globulin 3.4 Albumin/Globulin Ratio 1.1 Triglycerides 119 Cholesterol 77 LDL Cholesterol, Calc 19 VLDL Cholesterol, Calc 24 HDL Cholesterol 34 Cholesterol/HDL Ratio 2.3 Diagnostic Findings ECG personally reviewed 12/15/2023: Sinus rhythm [address]/T wave abnormality. History and physical report reviewed. Labs reviewed and notable for normal high-sensitivity troponin x 3, normal renal function, normal potassium, slightly elevated AST (chronic), stable hemoglobin, mild thrombocytopenia. Chest x-ray 12/15/2023: No acute cardiopulmonary findings per radiology. Nuclear stress 08/22/2023: No ischemia. EF 84%. Normal wall motion. Preliminary echo review from 12/16/2023: Normal LV systolic function. No regional wall motion abnormalities. Formal review to follow. Telemetry personally reviewed: Sinus rhythm. No arrhythmia. Medications Administered Current Inpatient Medications Acetaminophen (Acetaminophen 325 Mg Tab) 650 mg PO Q4H PRN PRN Reason: Pain or Fever Stop: 01/15/24 01:57 Apixaban (Apixaban 5 Mg Tablet) 5 mg PO BID ENEDINA Stop: 01/15/24 08:59 Last Admin: 12/16/23 09:21 Dose: 5 mg Metoprolol Succinate (Metoprolol Succ 50mg Ext Rel Tab) 100 mg PO PM ENEDINA Stop: 01/15/24 20:59 Ondansetron HCl (Ondansetron Inj 2 Mg/Ml 2 Ml Vial) 4 mg IV Q6H PRN PRN Reason: Nausea Stop: 01/15/24 01:57 Pantoprazole Sodium (Pantoprazole 40 Mg Tab) 40 mg PO DAILY ENEDINA Stop: 01/15/24 08:59 Last Admin: 12/16/23 09:21 Dose: 40 mg Rosuvastatin Calcium (Rosuvastatin Calcium 10 Mg Tab) 10 mg PO QPM ENEDINA Stop: 01/15/24 20:59 Tamsulosin HCl (Tamsulosin Hcl 0.4 Mg Cap) 0.4 mg PO QPM ENEDINA Stop: 01/15/24 20:59 PG Care Time/CCT Total # of Minutes Spent Total Time Spent with Patient: Total time spent is greater than 50% in coordination of care (as documented) at patient's floor/unit and/or counseling patient: Coding Level of Care Code 61122 INT INP/OBS CARE 2/55MIN Diagnoses Palpitations R00.2 Paroxysmal atrial flutter I48.92 CAD (coronary artery disease) I25.10 Current use of correction anticoagulation Z79.01
--- NOTE | 2023-12-16 13:48 | Hospitalist Progress Note ---
Date of Service December 16, 2023 Assessment & Plan (1) Chest pain: Plan: -Patient with substernal chest pain that has been on and off for many years has been getting worse. Does endorse shortness of breath on exertion. -Troponin negative x 2. Will continue trending troponin every 6 hours. -No EKG changes. -Chest x-ray showed no acute pulmonary findings. Did show some numerous calcified pleural plaques. -Did have a myocardial stress test back on 08/22/2023 which showed a negative myocardial perfusion study for ischemia or infarct. -Echocardiogram done, awaiting official results. Atmospheric Technician on board thinks that this could be related to palpitations. Re commends telemetry monitoring. Will monitor the patient on telemetry overnight and discharge him with an event monitor for 30 days tomorrow. -Continue on Crestor 10 mg and metoprolol 100 mg. No cardiology procedures planned. N.p.o. discontinued -A1c 6.3, lipid panel unremarkable (2) CAD (coronary artery disease): Plan: -As above continue on metoprolol and Crestor. (3) Paroxysmal atrial flutter: Plan: -Patient is currently in atrial flutter. -Continue on Eliquis 5 mg twice daily. 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 -Monitor PT/INR in the morning. (5) GERD (gastroesophageal reflux disease): Plan: -May ultimately be the underlying cause of patient's chest pain. -Continue on Protonix daily. Plan Code status: Full code DVT ppx: Eliquis Likely discharge to home tomorrow with monitor arranged. Admission and Anticipated Discharge Date Admission Date: December 16, 2023 Subjective Patient has not had any further episodes of chest pain since admission. No shortness of breath or dizziness. He tells me that this has been going on for a long time. Review of Systems Review of Systems: All systems reviewed & are unremarkable except as noted in Subjective Physical Exam Physical Exam: General: Awake, conversant Heart: S1, S2/regular rate and rhythm, no murmur rubs or gallops Lungs: Clear to auscultation bilaterally. Normal effort Abdomen: Soft/nontender/nondistended. No hepatosplenomegaly Extremities: No clubbing/cyanosis. No edema Behavior: Appropriate, cooperative Results & Data Results & Data Vital Signs (Past 12 Hours) Vital Signs Temp Pulse Pulse Resp BP Pulse Ox O2 Del Method 12/16/23 11:00 36.5 C 78 16 148/83 H 94 Room Air 12/16/23 07:00 36.7 C 81 16 130/83 94 Room Air 12/16/23 03:57 36.4 C L 75 16 114/76 94 Room Air 12/16/23 02:19 77 12/16/23 02:01 37.0 C 72 16 151/86 H 94 Room Air 12/16/23 01:58 37.0 C 72 16 151/86 H 94 Room Air PG Care Time/CCT Total # of Minutes Spent Total Time Spent with Patient: Total time spent is greater than 50% in coordination of care (as documented) at patient's floor/unit and/or counseling patient: Coding Level of Care Code 27590 SUB INP/OBS CARE 2/35MIN Diagnoses Chest pain R07.9 CAD (coronary artery disease) I25.10 Paroxysmal atrial flutter I48.92 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 K75.81; K74.60 GERD (gastroesophageal reflux disease) K21.9
--- NOTE | 2023-12-16 15:48 | XCELERA ---
[id number]
[2023-12-16] MEDS: METOPROLOL SUCC 50MG EXT REL TAB PO SCH (20:08)
[2023-12-16] MEDS: ROSUVASTATIN CALCIUM 10 MG TAB PO SCH (20:08)
[2023-12-16] MEDS: TAMSULOSIN HCL 0.4 MG CAP PO SCH (20:08)
--- NOTE | 2023-12-16 21:26 | Electrocardiogram Report ---
Test Reason : Blood Pressure : */* mmHG Vent. Rate : 88 BPM Atrial Rate : 88 BPM P-R Int : 136 ms QRS Dur : 80 ms QT Int : 398 ms P-R-T Axes : 38 53 4 degrees QTcB Int : 481 ms Normal sinus rhythm Nonspecific ST and T wave abnormality Abnormal ECG When compared with ECG of 15-Dec-2023 19:19, No significant change Confirmed by Rohit Diaz ([id number]) on 12/16/2023 9:26:32 PM Referred By: REFERRED SELF Confirmed By: Rohit Diaz
--- NOTE | 2023-12-16 21:28 | Electrocardiogram Report ---
Test Reason : Blood Pressure : */* mmHG Vent. Rate : 89 BPM Atrial Rate : 89 BPM P-R Int : 138 ms QRS Dur : 82 ms QT Int : 358 ms P-R-T Axes : -5 47 147 degrees QTcB Int : 435 ms Normal sinus rhythm Nonspecific ST and T wave abnormality Abnormal ECG When compared with ECG of 15-Dec-2023 22:58, No significant change Confirmed by Rohit Diaz ([id number]) on 12/16/2023 9:27:46 PM Referred By: REFERRED SELF Confirmed By: Rohit Diaz
[2023-12-17 06:48] LABS: Hematocrit (blood only) 37.4 % (42.0-52.0); Hemoglobin 12.9 g/dl (14.0-18.0); Mean Corpuscular Hemoglobin 30.9 pg (25.0-34.0); Mean Corpuscular Hgb Conc 34.5 g/dL (32.0-36.0); Mean Corpuscular Volume 89.5 fL (80.0-100.0); Mean Platelet Volume 10.8 fL (9.4-12.4); Platelet Count 102 K/uL (130-400); RDW Coefficient of Variation 13.2 % (11.5-14.5); RDW Standard Deviation 43.3 fL (36.4-46.3); Red Blood Count 4.18 M/uL (4.70-6.10); White Blood Count 5.02 K/ul (4.8-10.8)
[2023-12-17 07:08] LABS: Albumin Globulin Ratio 1.2 (0.9-2); Albumin Level 3.5 gm/dl (3.4-5.0); BUN Creatinine Ratio 21.1 (10-20); Bilirubin,Total 0.7 mg/dl (0.2-1.0); Calcium 8.5 mg/dl (8.6-10.3); Est GFR (African American) 102.7 ml/min; Est GFR (Non-African American) 88.6 ml/min; Magnesium 2.1 mg/dl (1.7-2.4); Potassium 4.3 mmol/L (3.5-5.1); Total Protein 6.5 gm/dl (6.0-8.3)
--- NOTE | 2023-12-17 10:41 | Discharge Summary ---
Date of Service December 17, 2023 Admission HPI Per Admitting Provider Patient is a 78-year-old male with past medical history of CAD, atrial flutter, BPH, GERD, who presents to the hospital with chest pain. Patient was seen in the ED for chest pain but was found to have a negative troponin and EKG changes and was discharged earlier today. As patient was walking out to his car he began to have chest pain again and was brought back into the ED and admitted. Patient has been having chest pain on and off for years and has seen the [place] serv[facility] [employer] about these complaints. He has a history of a cardiac catheterization many years ago which showed 40% stenosis but no stents were christiano jessica. Patient's most recent episode of chest pain started yesterday around noon which was substernal and felt like pressure. This continued to be on and off throughout the day. Started to get worse this morning throughout the day. Has no radiating pain. States that he has had some radiating pain to the neck on previous occasion with his chest pain. Denies chest pain getting worse with breathing or on palpitation. States that he has been getting shortness of breath on exertion for some time and that has been getting worse recently. Also states that he sometimes has orthopnea but is not consistent. Admission Exam Per Admitting Provider Constitutional: well-appearing, no acute distress HEENT: NCAT, no conjunctival injection CV: regular rhythm, no murmur appreciated, extremities well-perfused, no LE edema Resp: CTABL, no wheezes/rales/rhonchi appreciated, no increased work of breathing GI: soft, nondistended, nontender, BS normoactive MSK: no gross deformities appreciated Skin: warm, dry, no rash appreciated Neuro: alert, oriented, no focal neurologic deficit appreciated Principal Diagnosis Chest discomfort most likely related to arrhythmia. Discharge with event monitor Discharge Exam General: Awake, conversant Heart: S1, S2/regular rate and rhythm, no murmur rubs or gallops Lungs: Clear to auscultation bilaterally. Normal effort Abdomen: Soft/nontender/nondistended. No hepatosplenomegaly Extremities: No clubbing/cyanosis. No edema Behavior: Appropriate, cooperative Discharge Data Allergies Allergy/AdvReac Type Severity Reaction Status Date / Time codeine AdvReac Intermediate NAUSEA, Verified 12/16/23 00:07 BLOOD PRESSURE DROPPED, DIZZINESS lorazepam [From Ativan] AdvReac Intermediate Confusion Verified 12/16/23 00:07 Consultations 12/15/23 23:30 ED Decision to Admit Stat 12/16/23 01:58 Consult Cardiology Routine Hospital Course (1) Chest pain: -Patient with substernal chest pain that has been on and off for many years has been getting worse. Does endorse shortness of breath on exertion. -Troponin negative x 2. Will continue trending troponin every 6 hours. -No EKG changes. -Chest x-ray showed no acute pulmonary findings. Did show some numerous calcified pleural plaques. -Did have a myocardial stress test back on 08/22/2023 which showed a negative myocardial perfusion study for ischemia or infarct. -Echocardiogram done, awaiting official results. Order To Delivery Supervisor on board thinks that his chest discomfort could be related to palpitations from a rhythm problem. He already has a history of a flutter. Monitored on telemetry. No events. Will discharge him with an event monitor for 30 days. -Continue on Crestor 10 mg and metoprolol 100 mg. -A1c 6.3, lipid panel unremarkable (2) CAD (coronary artery disease): -As above continue on metoprolol and Crestor. (3) Paroxysmal atrial flutter: -Patient is currently in atrial flutter. 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 -Continue on Protonix daily. Plan Discharge to home today Total Time Total Time Spent Total Time Spent (In Minutes): 35 Discharge Plan Discharge Items Patient Disposition: Home - Self-Care Reason For Visit: CP R/O Discharge Diagnosis: Chest discomfort most likely related to arrhythmia. Discharge with event monitor Activity: Resume your previous activity Non-emergency contact: Primary Care Provider Call non-emergency contact if: you have any medication questions and your symptoms worsen Follow-up/Referrals: Rohit Diaz MD [Physician] - (Cardiology will call Pt to schedule follow up ) Jordan Heard NP-C [Primary Care Provider] - ([facility] will call Pt to schedule follow up) Diet: Regular Addtl Attending Provider Instructions: Advised to follow-up with PCP in 1 week Advised to note that you are being discharged with an event monitor for 30 days You can schedule an appointment with servicer travel [employer], Dr. Diaz in 1 month Pending Studies at Discharge: No Stand-Alone Forms: [facility] Medications and DC Order Prescriptions: Continued mirtazapine 30 mg tablet 30 mg PO HS Qty: 30 3RF pantoprazole [Protonix] 40 mg tablet,delayed release (DR/EC) 40 mg PO DAILY Qty: 30 3RF latanoprost 0.005 % Drops 1 drp OPB QPM Patient Comments: BOTH EYES cyanocobalamin (vitamin B-12) [Vitamin B-12] 1,000 mcg Tablet 500 mcg PO QAM cholecalciferol (vitamin D3) [Vitamin D3] 1,000 unit Capsule 1,000 unit PO QPM nitroglycerin [Nitrostat] 0.4 mg Tablet, Sublingual 0.4 mg sublingual UD PRN (Reason: Chest Pain) Patient Comments: NOT FOR A LONG TIME , YEARS Rx Instructions: PLACE ONE TABLET UNDER THE TONGUE EVERY 5 MINUTES FOR UP TO 3 DOSES OVER 15 MINUTES IF NEEDED FOR CHEST PAIN PreserVision AREDS [id number] Tablet 1 tab PO BID dorzolamide (PF) 2 % Drops 1 drp OPB TID Patient Comments: BOTH EYES Calcium 600 + D(3) 600 mg calcium- 200 unit Capsule 1 cap PO QAM polyethylene glycol 3350 [Miralax] 17 gram powder in packet 17 g PO QAM rosuvastatin 10 mg Tablet 10 mg PO QPM acetaminophen [Tylenol Extra Strength] 500 mg tablet 1,000 mg PO TID PRN (Reason: Pain) metoprolol succinate 100 mg tablet extended release 24 hr 100 mg PO PM Qty: 30 0RF apixaban 5 mg Tablet 5 mg PO BID finasteride 5 mg Tablet 5 mg PO QAM Ensure Liquid 1 ea PO DAILY amoxicillin 500 mg tablet 2,000 mg PO DIRECTED PRN (Reason: 1 HR PRIOR TO DENTAL PROCEDURES) Rx Instructions: 4 tabs 1 hour prior to procedure tamsulosin 0.4 mg capsule 0.4 mg PO QPM Discharge Orders: Discharge Order (Routine); Ordered 12/17/23 Ordered By: Dinah Mirza/Other Patient Handouts: Prediabetes, 5 Steps for Eating Healthier Admission Data Admit Date/Time: 12/16/23 00:12 Attending Provider: Dinah Cervantes Admit Provider: Taras Zarate Primary Care Provider: Jordan Heard Other Providers: Wilver Packer; Familia Fishre; Tenzin Holly; Justen Horner; Camron العلي; Brendan Pantoja; Malcom Ace Jr; Rohit Diaz; Velvet Cook; Nathalie Kumari; Aristides Botello ; Aristides Blackburn; Catrachito Schreiber; Harini Ryan; Bryon Mohamud; Olivia Hernandez; Aaron Major; Uriel Felder; Carmine Britt; Asa Ambrocio; [facility] Other Interventions: Discharge Summary Assessment (RN) Last Done: 12/17/23 11:15
[2023-12-17 11:05] VITALS: PULSE 70; RESP 18; TEMP 97.9; O2SAT 94
[2023-12-17 11:17] VITALS: BP 97/63
== END 2023-12-17 13:03 | disposition home or self-care (01) ==
LOC: ED 22:50 → 2S 22:50 → SUATTDRO 12-16 00:12 → 2S 12-16 01:14